=== PATIENT | female | born 1970 | race Two or more races ===

== ENCOUNTER 2016-12-07 21:35 | Emergency (ER) | payer OTHER ==
[2016-12-07 21:43] VITALS: BP 136/88
[2016-12-07] MEDS ORDERED: Ketorolac INJ* 60 MG/2 ML VIAL IM ONE (21:58)
--- NOTE | 2016-12-07 22:29 | ED ---
Dima Lemons Erika, scribed for Gurjit Arreguin MD on 12/07/16 at 2204 . Neck Pain - HPI Summary HPI Summary: Patient is a 46-year-old female presenting to the ED with a CC of constant posterior neck and upper back pain, worse on the right side. Patient reports that she did unusual bending/heavy lifting, and then developed the pain 2-3 days ago. Pain is aggravated by lifting her arm. Pain was partially alleviated by a warm bath. Pt did not take any pain medication, stating that she does not like taking any. - History of Current Complaint Chief Complaint: EDNeckComplaint Stated Complaint: NECK/SHOULDER PAIN Time Seen by Provider: 12/07/16 21:55 Hx Obtained From: Patient Hx Last Menstrual Period: May 07, 2015 Onset/Duration Of Injury/Symptoms: Days Timing: Constant Onset/Duration: Started days ago, Still Present Severity Currently: Moderate Pain Intensity: 8 Pain Scale Used: 0-10 Numeric Character: Spasmotic Aggravating Factors: Movement Alleviating Factors: Heat Associated Signs & Symptoms: Positive: Negative - Allergies/Home Medications Allergies/Adverse Reactions: Allergies Allergy/AdvReac Type Severity Reaction Status Date / Time No Known Allergies Allergy Verified 12/07/16 21:43 PMH/Surg Hx/FS Hx/Imm Hx Endocrine/Hematology History: Reports: Hx Thyroid Disease Denies: Hx Diabetes - "pre-diabetes", Hx Anemia Cardiovascular History: Reports: Hx Hypertension Denies: Hx Congestive Heart Failure Respiratory History: Reports: Hx Asthma - ON O2 AT HOME, Hx Chronic Obstructive Pulmonary Disease (COPD), Other Respiratory Problems/Disorders - HX. OF PNEUMONIA, COPD GI History: Denies: Hx Jaundice History: Denies: Hx Renal Disease - Surgical History Surgery Procedure, Year, and Place: L BREAST LUMPECTOMY 2008 B[facility]IGN. TUBAL LIGATION. C SECTION X 3. THYROID FNA BENIGN - Immunization History Date of Tetanus Vaccine: Unknown Date of Influenza Vaccine: None Infectious Disease History: No Infectious Disease History: Denies: Traveled Outside the [place] in Last 30 Days - Family History Family History: Denies FHx breast cancer - Social History Alcohol Use: None Hx Substance Use: No Substance Use Type: Reports: None Hx Tobacco Use: Yes Smoking Status (MU): Former Smoker Review of Systems Negative: Fever Positive: Myalgia - neck and upper back All Other Systems Reviewed And Are Negative: Yes Physical Exam Triage Information Reviewed: Yes Vital Signs On Initial Exam: Initial Vitals Temp Pulse Resp BP Pulse Ox 97.7 F 87 16 136/88 97 12/07/16 21:37 12/07/16 21:37 12/07/16 21:37 12/07/16 21:37 12/07/16 21:37 Vital Signs Reviewed: Yes Appearance: Positive: Well-Appearing, Pain Distress - mild discomfort Skin: Positive: Warm Head/Face: Positive: Normal Head/Face Inspection Eyes: Positive: DIANA ENT: Positive: Hearing grossly normal Neck: Positive: Supple, Tenderness @ - paracervical musculature Respiratory/Lung Sounds: Positive: Clear to Auscultation, Breath Sounds Present Cardiovascular: Positive: RRR Abdomen Description: Positive: Nontender, Soft Bowel Sounds: Positive: Present Musculoskeletal: Positive: Strength/ROM Intact Neurological: Positive: Sensory/Motor Intact Psychiatric: Positive: Affect/Mood Appropriate Diagnostics - Vital Signs Vital Signs Temp Pulse Resp BP Pulse Ox 12/07/16 21:37 97.7 F 87 16 136/88 97 - Laboratory Lab Statement: Any lab studies that have been ordered have been reviewed, and results considered in the medical decision making process. Re-Evaluation - Re-Evaluation First Eval Re-Evaluation Time: 22:30 Change: Improved Neck Course/Dx - Course Assessment/Plan: Patient is a 46 y/o F presenting to the ED with a CC of posterior neck and upper back pain. PE reveals spasms. Patient is given Toradol in the ED, and feels improved. Patient will be discharged home with a prescription for ibuprofen and follow up from her PCP. - Diagnoses Provider Diagnoses: Musculoskeletal pain Discharge - Discharge Plan Condition: Stable Disposition: HOME Prescriptions: Ibuprofen TAB* [Motrin TAB* 600 MG] 600 mg PO Q6H #30 tab Patient Education Materials: Neck Pain (ED) Referrals: [facility] [facility] REFERRAL [Outside] Additional Instructions: Please follow up with your PCP. The documentation as recorded by the Dima olivares Erika accurately reflects the service I personally performed and the decisions made by me, Gurjit Arreguin MD.
== END 2016-12-07 23:09 | disposition home or self-care (01) ==
LOC: ED 21:35
DX: M54.9 Dorsalgia, unspecified (principal); M54.2 Cervicalgia; Z87.891 Personal history of nicotine dependence; M79.1 Myalgia
CPT/HCPCS: 96372; 99282; J1885

== ENCOUNTER → 2017-04-08 20:07 | Emergency (ER) | payer SELFPAY ==
[~2017-04-08 20:07] MED LIST: Ibuprofen TAB* 600 MG PO ONE
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
[2017-04-08 22:30] VITALS: BP 163/98
== END | disposition home or self-care (01) ==
LOC: ED 20:07
DX: S40.022A Contusion of left upper arm, initial encounter (principal); M25.531 Pain in right wrist; M54.2 Cervicalgia; M54.5 Low back pain; Z87.891 Personal history of nicotine dependence; V89.2XXA Person injured in unspecified motor-vehicle accident, traffic, initial encounter; Y93.9 Activity, unspecified; Y92.9 Unspecified place or not applicable
CPT/HCPCS: 72100; 72125; 99282; A9270-GY

== ENCOUNTER 2017-04-12 13:04 | Emergency (ER) | payer SELFPAY ==
[2017-04-12 15:43] VITALS: BP 160/100
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
== END 2017-04-12 16:08 | disposition home or self-care (01) ==
LOC: UCEAST 13:04
DX: M54.12 Radiculopathy, cervical region (principal); Z87.891 Personal history of nicotine dependence
CPT/HCPCS: 99212; G0463

== ENCOUNTER 2017-05-17 13:22 | Emergency (ER) | payer OTHER ==
[2017-05-17 13:33] VITALS: BP 124/78
--- NOTE | 2017-05-17 13:36 | UC ---
Upper Extremity HPI - HPI Summary HPI Summary: 47 year old female presents right middle finger pain secondary to lifting a couch. - History of Current Complaint Chief Complaint: UCUpperExtremity Stated Complaint: FINGER INJURY Time Seen by Provider: 05/17/17 13:31 Hx Last Menstrual Period: 03/23 - Allergies/Home Medications Allergies/Adverse Reactions: Allergies Allergy/AdvReac Type Severity Reaction Status Date / Time No Known Allergies Allergy Verified 05/17/17 13:29 PMH/Surg Hx/FS Hx/Imm Hx Previously Healthy: Yes - Surgical History Surgical History: Yes Surgery Procedure, Year, and Place: L BREAST LUMPECTOMY 2007 BENIGN. TUBAL LIGATION. C SECTION X 3. THYROID FNA BENIGN - Family History Known Family History: Positive: Other Family History: Denies FHx breast cancer - Social History Alcohol Use: Rare Substance Use Type: None Smoking Status (MU): Former Smoker Have You Smoked in the Last Year: No Household Exposure Type: Cigarettes Review of Systems Constitutional: Negative Skin: Negative Eyes: Negative ENT: Negative Respiratory: Negative Cardiovascular: Negative Gastrointestinal: Negative Genitourinary: Negative Motor: Negative Neurovascular: Negative Musculoskeletal: Other: - right middle finger pain Neurological: Negative Psychological: Negative All Other Systems Reviewed And Are Negative: Yes Physical Exam Triage Information Reviewed: Yes Vital Signs: Initial Vital Signs Temp 36.7 C 05/17/17 13:29 Pulse 90 05/17/17 13:29 Resp 16 05/17/17 13:29 BP 124/78 05/17/17 13:29 Pulse Ox 98 05/17/17 13:29 Eye Exam: Normal ENT Exam: Normal Dental Exam: Normal Neck exam: Normal Neck: Positive: 1 Respiratory Exam: Normal Cardiovascular Exam: Normal Abdominal Exam: Normal Musculoskeletal: Positive: Other: - right middle finger pain Neurological Exam: Normal Psychological Exam: Normal Skin Exam: Normal Upper Extremity Course/Dx - Differential Dx/Diagnosis Provider Diagnoses: right middle finger pain Discharge - Discharge Plan Condition: Stable Disposition: HOME Prescriptions: Meloxicam [Mobic] 7.5 mg PO BID PC #30 tab Patient Education Materials: Finger Sprain (ED) Referrals: Filomena Zavaleta MD [Primary Care Provider] - If Needed
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
== END 2017-05-17 14:33 | disposition home or self-care (01) ==
LOC: UCEAST 13:22
DX: M79.644 Pain in right finger(s) (principal); Z87.891 Personal history of nicotine dependence
CPT/HCPCS: 99213; G0463

== ENCOUNTER 2017-09-29 22:58 | Emergency (ER) | payer OTHER ==
[2017-09-29] MEDS ORDERED: Ondansetron INJ* 2 MG/ML VIAL IV ONE (23:59)
[2017-09-29] MEDS ORDERED: Morphine INJ* 4 MG/ML 1 ML CARPUJECT IV ONE (23:59)
[2017-09-30 00:40] LABS: ABS Basophils 0.1 10^3/ul (0-0.2); ABS Eosinophils 0.2 10^3/ul (0-0.6); ABS Monocytes 0.6 10^3/ul (0-0.8); ABS Nucleated RBC 0 10^3/ul; Eosinophil % 1.4 % (0-6); Hematocrit 41 % (35-47); Hemoglobin 14.5 g/dl (12.0-16.0); Lymphocyte % 16.7 % (25-47); Mean Corpuscular HGB Conc 35 g/dl (31-36); Mean Corpuscular Hemoglobin 30 pg (27-31); Mean Corpuscular Volume 85 fL (80-97); Mean Platelet Volume 8 um3 (7.4-10.4); Nucleated Red Blood Cells % 0; Platelet Count 284 10^3/ul (150-450); Red Blood Count 4.86 10^6/ul (4.0-5.4); Red Cell Distribution Width 14 % (10.5-15); White Blood Count 11.9 10^3/ul (3.5-10.8)
[2017-09-30 00:55] LABS: EGFR Non-African American 135.4 (>60)
[2017-09-30 01:34] VITALS: BP 131/84
--- NOTE | 2017-09-30 01:43 | ED ---
Headache - HPI Summary HPI Summary: Pt presents w/ acute facial pain after crying tonight. Reports pain is in her entire jaw, cheeks and around her eyes. Has a LANGE and can't take the pain. Was supposed to travel to see her mom with cancer in [facility], [facility] and at the last minute, her daughter who was supposed to take her cancelled the trip. Pt admits she was very angry and upset. She also hit herself in the nose by accident and nose started bleeding - stopped with pressure and has not returned. Her blood pressure is elevated as well - she accidentally took 2 of her metoprolol instead of 1 metoprolol and 1 losartan - she had been doing this for a couple of days and just returned to routine regimen today. BP is elevated now. Denies chest pain, SOB, dizziness, arm pain or weakness. She is crying with a blanket over her head and quite upset. Denies recent illness, rhinorrhea, sneezing, coughing, ST, fever, chills, N/V/D. - History Of Current Complaint Chief Complaint: EDGeneral Stated Complaint: FACIAL PAIN Time Seen by Provider: 09/29/17 23:11 Hx Obtained From: Patient, Family/[employer] - son is w/ her Hx Last Menstrual Period: 03/23 - Allergies/Home Medications Allergies/Adverse Reactions: Allergies Allergy/AdvReac Type Severity Reaction Status Date / Time No Known Allergies Allergy Verified 07/03/17 10:39 PMH/Surg Hx/FS Hx/Imm Hx Previously Healthy: Yes Endocrine/Hematology History: Reports: Hx Diabetes - "pre-diabetes", Hx Thyroid Disease - issues years ago - has not needed meds in years Denies: Hx Anemia Cardiovascular History: Reports: Hx Hypertension - metoprolol and losartan Denies: Hx Congestive Heart Failure, Hx Pacemaker/ICD Respiratory History: Reports: Hx Asthma - ON O2 AT HOME, Hx Chronic Obstructive Pulmonary Disease (COPD), Other Respiratory Problems/Disorders - HX. OF PNEUMONIA, COPD GI History: Denies: Hx Jaundice History: Denies: Hx Renal Disease Sensory History: Denies: Hx Hearing Aid Psychiatric History: Denies: Hx Anxiety - pt denies, Hx Panic Disorder - Surgical History Surgery Procedure, Year, and Place: L BREAST LUMPECTOMY 2008 BENIGN. TUBAL LIGATION. C SECTION X 3. THYROID FNA BENIGN - Immunization History Date of Tetanus Vaccine: Unknown Date of Influenza Vaccine: None Infectious Disease History: No Infectious Disease History: Denies: History Other Infectious Disease, Traveled Outside the [place] in Last 30 Days - Family History Known Family History: Positive: Other Family History: mom w/ lung ca - Social History Lives: With Family Alcohol Use: Rare Hx Substance Use: No Substance Use Type: Reports: None Hx Tobacco Use: Yes Smoking Status (MU): Former Smoker Have You Smoked in the Last Year: No Review of Systems Constitutional: Negative Negative: Fever, Chills, Fatigue Eyes: Negative Negative: Photophobia, Blurred Vision, Diplopia, Drainage, Erythema ENT: Negative Positive: Epistaxis - ealier but not now, Other - facial pain. Negative: Dental Pain, Sore Throat, Ear Ache, Nasal Discharge Cardiovascular: Negative Negative: Palpitations, Chest Pain Respiratory: Negative Negative: Shortness Of Breath, Cough Gastrointestinal: Negative Negative: Abdominal Pain, Vomiting, Diarrhea, Nausea Positive: no symptoms reported Musculoskeletal: Other - ongoing Lt hip/leg pain - working w/ PT Skin: Negative Positive: Headache. Negative: Weakness, Paresthesia, Numbness, Syncope, Slurred Speech Positive: Anxious All Other Systems Reviewed And Are Negative: Yes Physical Exam Triage Information Reviewed: Yes Vital Signs On Initial Exam: Initial Vitals Temp Pulse Resp BP Pulse Ox 96.8 F 81 16 166/97 96 09/29/17 23:02 09/29/17 23:02 09/29/17 23:02 09/29/17 23:02 09/29/17 23:02 Vital Signs Reviewed: Yes Appearance: Positive: Pain Distress - pt is crying, reporting facial pain and headache, Obese Skin: Positive: Warm, Dry - no skin changes over face Head/Face: Positive: Normal Head/Face Inspection - Sinuses NTTP, no edema Eyes: Positive: Normal, EOMI, DIANA, Conjunctiva Clear - crying ENT: Positive: Normal ENT inspection, Hearing grossly normal, Pharynx normal, TMs normal, Uvula midline. Negative: Nasal congestion, Nasal drainage, Tonsillar swelling, Tonsillar exudate, Trismus, Muffled voice, Hoarse voice, Sinus tenderness Dental: Negative: Abscess @ Neck: Positive: Supple, Nontender, No Lymphadenopathy Respiratory/Lung Sounds: Positive: Clear to Auscultation, Breath Sounds Present. Negative: Rales, Rhonchi, Wheezes Cardiovascular: Positive: Normal, RRR, S1, S2 Abdomen Description: Positive: Nontender, No Organomegaly, Soft Bowel Sounds: Positive: Present Musculoskeletal: Positive: Normal, Strength/ROM Intact Neurological: Positive: Normal, Sensory/Motor Intact, Alert, Oriented to Person Place, Time, CN Intact II-III Psychiatric: Positive: Anxious - upset, crying, anxious - Pawel Coma Scale Coma Scale Total: 15 Diagnostics - Vital Signs Vital Signs Temp Pulse Resp BP Pulse Ox 09/30/17 01:00 84 153/101 97 09/30/17 00:30 79 131/92 95 09/30/17 00:25 84 98 09/30/17 00:15 16 09/30/17 00:01 83 151/96 96 09/30/17 00:00 77 97 09/29/17 23:52 76 165/99 94 09/29/17 23:35 82 169/105 97 09/29/17 23:30 85 161/102 97 09/29/17 23:09 81 93 09/29/17 23:07 157/98 09/29/17 23:02 96.8 F 81 16 166/97 96 - Laboratory Lab Results: Lab Results 09/30/17 09/30/17 09/30/17 Range/Units 00:17 00:17 00:17 WBC 11.9 H (3.5-10.8) 10^3/ul RBC 4.86 (4.0-5.4) 10^6/ul Hgb 14.5 (12.0-16.0) g/dl Hct 41 (35-47) % MCV 85 (80-97) fL MCH 30 (27-31) pg MCHC 35 (31-36) g/dl RDW 14 (10.5-15) % Plt Count 284 (150-450) 10^3/ul MPV 8 (7.4-10.4) um3 Neut % (Auto) 75.9 (38-83) % Lymph % (Auto) 16.7 L (25-47) % [place] % (Auto) 5.2 (1-9) % Eos % (Auto) 1.4 (0-6) % Baso % (Auto) 0.8 (0-2) % Absolute Neuts (auto) 9.0 H (1.5-7.7) 10^3/ul Absolute Lymphs (auto) 2.0 (1.0-4.8) 10^3/ul Absolute Monos (auto) 0.6 (0-0.8) 10^3/ul Absolute Eos (auto) 0.2 (0-0.6) 10^3/ul Absolute Basos (auto) 0.1 (0-0.2) 10^3/ul Absolute Nucleated RBC 0 10^3/ul Nucleated RBC % 0 Sodium 135 (133-145) mmol/L Potassium 3.3 L (3.5-5.0) mmol/L Chloride 100 L (101-111) mmol/L Carbon Dioxide 28 (22-32) mmol/L Anion Gap 7 (2-11) mmol/L BUN 14 (6-24) mg/dL Creatinine 0.49 L (0.51-0.95) mg/dL Est GFR ( Amer) 174.1 (>60) Est GFR (Non-Af Amer) 135.4 (>60) BUN/Creatinine Ratio 28.6 H (8-20) Glucose 131 H (70-100) mg/dL Lactic Acid 1.5 (0.5-2.0) mmol/L Calcium 9.7 (8.6-10.3) mg/dL Magnesium 2.0 (1.9-2.7) mg/dL Total Bilirubin 0.70 (0.2-1.0) mg/dL AST 15 (13-39) U/L ALT 12 (7-52) U/L Alkaline Phosphatase 54 (34-104) U/L Troponin I Pending C-Reactive Protein 5.68 H (< 5.00) mg/L Total Protein 7.2 (6.4-8.9) g/dL Albumin 4.2 (3.2-5.2) g/dL Globulin 3.0 (2-4) g/dL Albumin/Globulin Ratio 1.4 (1-3) TSH 0.27 L (0.34-5.60) mcIU/mL Result Diagrams: 09/30/17 00:17 09/30/17 00:17 Lab Statement: Any lab studies that have been ordered have been reviewed, and results considered in the medical decision making process. Re-Evaluation - Re-Evaluation First Eval Change: Improved - pt reports pain resolved and she is more relaxed/calm after IV morphine Headache Course/Dx - Course Course Of Treatment: Pt presents w/ facial pain after being angry, anxious and crying- reports she accidentally hit herself in the face and develop nose bleed which stopped easily. Since her BP was elevated, an ECG and end organ labs were assessed - all normal. She had resolution of sx after morphine and was advised to address anxiety with PCP. Also encouraged to continue anti-hypertensives as directed. F/u w/ PCP to follow - if danger s/sx present, return to ED. NOTE: pt's TSH was low however heart rate is WNL. FT4 added however pt opted to go home prior to return of labs. These will be sent to PCP - no change in tx tonight however hyperthyroid status could contribute to pt's anxiety. - Diagnoses Provider Diagnoses: Anxiety Discharge - Discharge Plan Condition: Stable Disposition: HOME Patient Education Materials: Hypertension (ED), Anxiety (ED) Referrals: Filomena Zavaleta MD [Primary Care Provider] - Additional Instructions: Try relaxation techniques such as deep breathing, guided imagery, listening to calming music, stretching, rest and hydratioN Avoid stimulants such as caffeine, alcohol, etc Follow-up with PCP if blood pressure continues to be elevated despite trying relaxtion along with taking blood pressure medications as directed *If you develop severe headache, visual change, neck pain/stiffness, fever, chills, chest pain, abdominal pain, vomiting, numbness, tingling, weakness, return to ED
== END 2017-09-30 01:35 | disposition home or self-care (01) ==
LOC: ED 22:58
DX: F41.9 Anxiety disorder, unspecified (principal); R73.03 Prediabetes; J45.909 Unspecified asthma, uncomplicated; Z99.81 Dependence on supplemental oxygen; J44.9 Chronic obstructive pulmonary disease, unspecified; Z87.891 Personal history of nicotine dependence
CPT/HCPCS: 36415; 80053; 83605; 83735; 84439; 84443; 84484; 85025; 86140; 93005; 96374; 96375; 99283; J2270; J2405

== ENCOUNTER 2018-08-14 12:57 | Emergency (ER) | payer OTHER ==
[2018-08-14 13:22] VITALS: BP 141/87
--- NOTE | 2018-08-14 14:31 | UC ---
Throat Pain/Nasal Alli HPI - HPI Summary HPI Summary: 48-year-old woman comes in with a chief complaint of runny nose sinus pressure or sore throat cough chest congestion for 3-4 days. She been using her albuterol inhaler at home and Robitussin that does help some. Tells me every 1 is in the house is sick. Rhinorrhea is green. - History of Current Complaint Chief Complaint: UCGeneralIllness Stated Complaint: SORE THROAT, COUGH, AND CHEST CONGESTION Time Seen by Provider: 08/14/18 14:13 Hx Last Menstrual Period: 08/03/18 Pain Intensity: 10 - Allergies/Home Medications Allergies/Adverse Reactions: Allergies Allergy/AdvReac Type Severity Reaction Status Date / Time No Known Allergies Allergy Verified 07/03/17 10:39 Home Medications: Home Medications Albuterol HFA INHALER* [Ventolin HFA Inhaler*] 1 puff INH Q4H PRN 08/14/18 [ History Confirmed 08/14/18] PMH/Surg Hx/FS Hx/Imm Hx Cardiovascular History: Hypertension Respiratory History: COPD - Surgical History Surgical History: Yes Surgery Procedure, Year, and Place: L BREAST LUMPECTOMY 2007 BENIGN. TUBAL LIGATION. C SECTION X 3. THYROID FNA BENIGN - Family History Known Family History: Positive: Other Family History: mom w/ lung ca - Social History Alcohol Use: None Substance Use Type: None Smoking Status (MU): Former Smoker Have You Smoked in the Last Year: No Household Exposure Type: Cigarettes Review of Systems All Other Systems Reviewed And Are Negative: Yes Constitutional: Positive: Negative Skin: Positive: Negative Eyes: Positive: Negative ENT: Positive: Sore Throat, Ear Ache, Nasal Discharge, Sinus Congestion, Sinus Pain/Tenderness Respiratory: Positive: Shortness Of Breath, Cough Cardiovascular: Positive: Negative Gastrointestinal: Positive: Negative Motor: Positive: Negative Neurovascular: Positive: Negative Musculoskeletal: Positive: Negative Neurological: Positive: Negative Psychological: Positive: Negative Is Patient Immunocompromised?: No Physical Exam Triage Information Reviewed: Yes Appearance: No Pain Distress, Well-Nourished, Ill-Appearing - MILD Vital Signs: Initial Vital Signs Temp 98.0 F 08/14/18 13:18 Pulse 77 08/14/18 13:18 Resp 18 08/14/18 13:18 BP 141/87 08/14/18 13:18 Pulse Ox 99 08/14/18 13:18 Vital Signs Reviewed: Yes Eye Exam: Normal Eyes: Positive: Conjunctiva Clear ENT: Positive: Pharyngeal erythema, Nasal congestion, Nasal drainage, TMs normal Neck exam: Normal Neck: Positive: Supple Respiratory: Positive: Lungs clear, Normal breath sounds, No respiratory distress Cardiovascular: Positive: RRR Musculoskeletal Exam: Normal Musculoskeletal: Positive: ROM Intact Neurological Exam: Normal Neurological: Positive: Alert, Muscle Tone Normal Psychological Exam: Normal Psychological: Positive: Age Appropriate Behavior Skin Exam: Normal Throat Pain/Nasal Course/Dx - Course Course Of Treatment: DISCUSSED VIRAL VERSES BACTERIAL INFECTION AND THE ROLE OF ANTIBIOTICS. THE PATIENT WISHES TO BE ON ANTIBIOTICS AT THIS TIME. - Differential Dx/Diagnosis Provider Diagnoses: PHARYNGITIS Discharge - Sign-Out/Discharge Documenting (check all that apply): Patient Departure All imaging exams completed and their final reports reviewed: No Studies - Discharge Plan Condition: Stable Disposition: HOME Prescriptions: Amoxicillin/Clavulanate TAB* [Augmentin TAB 875*] 875 mg PO BID #20 tab Patient Education Materials: Pharyngitis (ED) Referrals: Mary Grace Palomares MD [Primary Care Provider] - Additional Instructions: FOLLOW UP WITH YOUR DOCTOR IF NOT COMPLETELY IMPROVED. GET RECHECKED FOR ANY WORSENING OF YOUR CONDITION OR QUESTIONS OR CONCERNS. - Billing Disposition and Condition Condition: STABLE Disposition: Home
== END 2018-08-14 14:42 | disposition home or self-care (01) ==
LOC: UCEAST 12:57
DX: J02.9 Acute pharyngitis, unspecified (principal); R09.89 Other specified symptoms and signs involving the circulatory and respiratory systems; R05 Cough; R09.81 Nasal congestion; I10 Essential (primary) hypertension; J44.9 Chronic obstructive pulmonary disease, unspecified; Z87.891 Personal history of nicotine dependence
CPT/HCPCS: 87651; 99212; G0463

== ENCOUNTER → 2018-09-18 18:24 | Emergency (ER) | payer OTHER ==
--- NOTE | 2018-09-18 19:35 | ED ---
Lower Extremity - HPI Summary HPI Summary: Patient complains of acute on chronic right knee pain after fall today. Patient states she had mechanical fall and fell onto right knee. Denies any other pain, injury, symptoms. Patient has not ambulated since fall. - History of Current Complaint Chief Complaint: EDExtremityLower Stated Complaint: RT KNEE PAIN Time Seen by Provider: 09/18/18 18:45 Hx Obtained From: Patient Hx Last Menstrual Period: 08/03/18 Mechanism Of Injury: Fall From A Standing Position Onset of Pain: Immediate Onset/Duration: Hours Severity Initially: Moderate Severity Currently: Moderate Pain Intensity: 8 Pain Scale Used: 0-10 Numeric Timing: Constant Location: Is Discrete @ Character Of Pain: Dull, Aching, Throbbing Associated Signs And Symptoms: Positive: Swelling, Knee Pain Aggravating Factor(s): Standing, Ambulation, Movement, Weight Bearing Alleviating Factor(s): Rest, Elevation Able to Bear Weight: No - Allergies/Home Medications Allergies/Adverse Reactions: Allergies Allergy/AdvReac Type Severity Reaction Status Date / Time No Known Allergies Allergy Verified 09/18/18 18:51 PMH/Surg Hx/FS Hx/Imm Hx Endocrine/Hematology History: Reports: Hx Diabetes - "pre-diabetes", Hx Thyroid Disease - issues years ago - has not needed meds in years Denies: Hx Anemia Cardiovascular History: Reports: Hx Hypertension - metoprolol and losartan Denies: Hx Congestive Heart Failure, Hx Pacemaker/ICD Respiratory History: Reports: Hx Asthma - ON O2 AT HOME, Hx Chronic Obstructive Pulmonary Disease (COPD), Other Respiratory Problems/Disorders - HX. OF PNEUMONIA, COPD GI History: Denies: Hx Jaundice, Hx Ulcer History: Denies: Hx Renal Disease Sensory History: Denies: Hx Hearing Aid Psychiatric History: Denies: Hx Anxiety - pt denies, Hx Panic Disorder - Surgical History Surgery Procedure, Year, and Place: L BREAST LUMPECTOMY 2008 BENIGN. TUBAL LIGATION. C SECTION X 3. THYROID FNA BENIGN - Immunization History Date of Tetanus Vaccine: Unknown Date of Influenza Vaccine: None Infectious Disease History: No Infectious Disease History: Denies: Hx Hepatitis, Hx Human Immunodeficiency Virus (HIV), History Other Infectious Disease, Traveled Outside the [place] in Last 30 Days - Family History Known Family History: Positive: Other Family History: mom w/ lung ca - Social History Alcohol Use: None Hx Substance Use: No Substance Use Type: Reports: None Hx Tobacco Use: Yes Smoking Status (MU): Former Smoker Have You Smoked in the Last Year: No Review of Systems Constitutional: Negative Eyes: Negative ENT: Negative Cardiovascular: Negative Respiratory: Negative Gastrointestinal: Negative Genitourinary: Negative Musculoskeletal: Other Skin: Negative Neurological: Negative Psychological: Normal All Other Systems Reviewed And Are Negative: Yes Physical Exam - Summary Physical Exam Summary: Swelling to lateral right knee. Full range of motion with pain. PMS intact distally. No erythema, ecchymosis, deformity, extra warmth to right knee joint. Triage Information Reviewed: Yes Vital Signs On Initial Exam: Initial Vitals Temp Pulse Resp BP Pulse Ox 98.0 F 84 18 131/75 97 09/18/18 18:34 09/18/18 18:34 09/18/18 18:34 09/18/18 18:34 09/18/18 18:34 Vital Signs Reviewed: Yes Appearance: Positive: Well-Appearing Skin: Positive: Warm Head/Face: Positive: Normal Head/Face Inspection Eyes: Positive: Normal Neck: Positive: Supple Respiratory/Lung Sounds: Positive: Clear to Auscultation Cardiovascular: Positive: Normal Abdomen Description: Positive: Nontender Musculoskeletal: Positive: Normal Neurological: Positive: Normal Psychiatric: Positive: Normal AVPU Assessment: Alert - Pawel Coma Scale Best Eye Response: 4 - Spontaneous Best Motor Response: 6 - Obeys Commands Best Verbal Response: 5 - Oriented Coma Scale Total: 15 Diagnostics - Vital Signs Vital Signs Temp Pulse Resp BP Pulse Ox 09/18/18 18:34 98.0 F 84 18 131/75 97 - Laboratory Lab Statement: Any lab studies that have been ordered have been reviewed, and results considered in the medical decision making process. Lower Extremity Course/Dx - Course Course Of Treatment: Patient complains of acute on chronic right knee pain after fall today. Patient states she had mechanical fall and fell onto right knee. Denies any other pain, injury, symptoms. Patient has not ambulated since fall. Physical exam:Swelling to lateral right knee. Full range of motion with pain. PMS intact distally. No erythema, ecchymosis, deformity, extra warmth to right knee joint. X-ray positive for possible patellar subluxation. Patella manipulated medially with right leg in a hyperextended position. Patient placed in knee immobilizer, crutches. Follow-up with orthopedics. - Diagnoses Provider Diagnoses: Fall, Patellar subluxation Discharge - Sign-Out/Discharge Documenting (check all that apply): Patient Departure - Discharge Plan Condition: Stable Disposition: HOME Patient Education Materials: Knee Pain (ED) Referrals: Filomena Zavaleta MD [Primary Care Provider] - Greyson Frazier MD [Medical Doctor] - Additional Instructions: Ibuprofen, ice, rest, elevation for pain and swelling. Follow-up with orthopedics Dr. Frazier. Return to the ED for any new or worsening symptoms. - Billing Disposition and Condition Condition: STABLE Disposition: Home
[2018-09-18 20:09] VITALS: BP 123/60
== END | disposition home or self-care (01) ==
LOC: ED 18:24
DX: S83.001A Unspecified subluxation of right patella, initial encounter (principal); M25.561 Pain in right knee; W19.XXXA Unspecified fall, initial encounter; Y92.9 Unspecified place or not applicable; Z87.891 Personal history of nicotine dependence
CPT/HCPCS: 99282; A9270-GY

== ENCOUNTER 2018-10-10 21:23 | Emergency (ER) | payer OTHER ==
--- OUTSIDE RECORDS SUMMARY | 2018-10-10 21:29 | XMS REPORT | Continuity of Care Document ---
:1970 External Reference #:[id number] Author Name LynseyDewey Care Team Providers Name Role Phone Filomena Zavaleta MD Primary Care Physician Unavailable Payers Type Date Identification Numbers Payment Provider Subscriber Policy Number: [id number] [place] Mariluz Chen Group Number: [id number] [address] PayID: [id number] [place] [address] Effective: 2016 Policy Number: [id number] [place] Mariluz Chen Onset: 2016 Group Name: [id number] PayID: [id number] [place] [address] Expires: 2016 Policy Number: [place] Mariluz Chen [id number] PayID: [id number] [address] [address] [place] [address] Onset: 2017 Policy Number: [id number] [place] Mariluz Chen PayID: [id number] [facility] [address] [place] [address] Policy Number: [id number] [employer] Mariluzchristo Chen PayID: [id number] Advance Directives Description No Information Available Problems Date Description Provider Status Onset: 07/11/2011 Electrocardiogram abnormal Maria Esther Main M.D. Active Onset: 07/11/2011 Hyperlipidemia Maria Esther Main M.D. Active Note: high TG Onset: 01/05/2014 Irritable bowel syndrome Rina Zhu, N.P. Active Onset: 01/05/2014 Apnea Rina Zhu N.P. Active Onset: 01/05/2014 Gastroesophageal reflux disease Rina Zhu N.P. Active Onset: 01/05/2014 Anxiety state Rina Zhu N.P. Active Onset: 01/05/2014 Chronic obstructive lung disease Rina Zhu N.P. Active Onset: 02/03/2014 Impaired fasting glucose Rina Zhu N.P. Active Onset: 04/13/2014 Obesity Rina Zhu N.P. Active Onset: 04/23/2014 Uterine leiomyoma Rina hZu N.P. Active Note: 06/02/13- fibroids 1-3.5 cm in size Onset: 06/09/2015 Subclinical hyperthyroidism Filomena Zavaleta M.D. Active Onset: Thyroid nodule Active Note: benign by FNA Onset: 11/10/2015 Disturbance in sleep behavior Erinn Walker MD Active Onset: 12/13/2015 Hypertensive retinopathy Filomena Zavaleta M.D. Active Onset: 12/20/2015 Tubular adenoma of colon Filomena Zavaleta M.D. Active Note: repeat in 2020 Onset: 12/21/2015 Patellofemoral osteoarthritis Filomena Zavaleta M.D. Active Onset: 01/03/2016 Obstructive sleep apnea syndrome Erinn Walker MD Active Onset: 02/20/2016 Localized, primary osteoarthritis Pauline Wolf M.D. Active Onset: 08/10/2016 Internal hemorrhoids Filomena Zavaleta M.D. Active Onset: 09/12/2016 Obstructive sleep apnea of adult Filomena Zavaleta M.D. Active Note: mild Onset: 01/05/2014 Non-toxic nodular goiter Rina Zhu N.Sugey. Inactive Inactive: 06/10/2014 Onset: 07/11/2011 Chest pain Maria Esther Main M.D. Inactive Inactive: 06/10/2014 Onset: 07/11/2011 Dyspnea Maria Esther Main M.D. Inactive Inactive: 06/10/2014 Onset: 07/11/2011 Benign essential hypertension Maria Esther Main M.D. 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 Started age [age] Recreational Drug Use Denies Drug Use Exercise Type/Frequency Does not exercise Allergies, Adverse Reactions, Alerts Date Description Reaction Status Severity Comments 08/26/2017 Amoxicillin Anaphylaxis Active roberto 07/11/2011 NKDA Inactive 01/24/2017 NKDA Inactive Medications Medication Date Status Form Strength Qnty SIG Indications Ordering Provider Ventolin HFA 11/25 Active Aerosol 108(90Bas 1mont 2 puffs by Heriberto Martinez /2014 william) h mouth four Pastora, mcg/Act times a M.D. day as needed Ibuprofen 00 Active Capsules 200mg as needed Unknown /0000 Losartan 00 Active Tablets 100-25mg 90tab Take 1 Filomena Potassium/Hydroc s Tablet By Waqar hlorothiazide Mouth M.D. Every Day Metoprolol Active Tablets ER 25mg 90tab Take 1 Filomena Succinate ER /0000 24HR s Tablet By Zavaleta, Mouth M.D. Every Day Meloxicam 08/26 Hx Tablets 7.5mg 60tab Take 1 M25.552 Filomena /2016 s Tablet By Waqar, - Mouth M.D. 12/03 Twice A Day as Needed For Pain, Avoid Other NSAIDS (Ibuprofen , Aleve, Etc) Diclofenac 07/15 Hx Gel 1% 100gm apply 4 S63.652D Mimi Sodium /2016 times Boyd, - daily as M.D. 12/04 needed for pain Azithromycin 02/15 Hx Tablets 250mg 6tabs 2 tab J20.9 Terry /2017 today and Carmen, - then 1tab M.D. 02/19 daily Diclofenac 01/[address] 75mg 60tab take 1 tab M25.511 Zaneb Sodium s by mouth MD Jeyson - twice a 03/13 day with food Cyclobenzaprine 01/22 Hx Tablets 5mg 10tab take one M25.511 Filomena HCL /2016 s tablet by Waqar, - mouth at M.D. 03/13 night /2016 Metronidazole 09/14 Hx Gel 0.75% 1unit apply s intravagin Waqar, - ally once M.D. 01/15 a day x days Fluconazole 09/12 Hx Tablets 150mg 2tabs 1 by mouth B37.3 every day Waqar, - M.D. 01/15 Ergocalciferol 09/12 Hx Capsules [id number] 8caps 1 tab by E55.9 mouth Waqar, - every week M.D. 01/15 Ergocalciferol 07/12 Hx Capsules [id number] 8caps 1 tab by E55.9 Filomena /2016 mouth Waqar, - every week M.D. 09/12 Citalopram 06/20 Hx Tablets 10mg 30tab Take 1 F32.8 Filomena Hydrobromide s Tablet By Waqar, - Mouth M.D. 01/15 Every Day /2016 Naproxen 02/19 Hx Tablets 500mg 60tab 1 tablet M17.12 Pauline s with food Luciano, - by mouth M.D. 07/12 twice a day Zithromax Z-Yared 01/02 Hx Tablets 250mg 6tabs 2 tabs J02.9 Erinn day#1, 1 MD Denise - tab daily 02/14 for 4 days /2015 Ergocalciferol 06/09 Hx Capsules [id number] 8caps 1 tab by E55.9 Filomena /2015 mouth Waqar, - every week M.D. 11/09 Amoxicillin/Clav 08/19 Hx Tablets 875-125mg 14tab 1 tab 461.8 Rina ulanate s twice a Audra, Potassium - day x 7 N.P. Fluticasone 08/19 Hx Suspension 50mcg/Act 1bott 2 spray in 461.8 Rina Propionate le each Uadra, - nostril in N.P. 03/09 /2014 Culturelle 01/05 Hx Capsules 30cap 1 cap by 564.1 Rina [facility] s mouth by Audra, - mouth N.P. 08 every /2013 Metamucil 01/05 Hx Capsules 0.52gm 60cap 1 cap by 564.1 Rina /2013 s mouth Audra, - twice a N.P. 03/09 day water Debrox 01/05 Hx Solution 6.5% 1Bott 5 drops in 380.4 Rina /2013 le l ear Audra, - twice a N.P. days, then 5 drops in each ear 1 time a month Diovan HCT Hx Tablets 320-25mg 90tab 1 po qd Unknown /0000 s - 08/19 Ventolin HFA Hx Aerosol 108(90Bas 1mont 2 puffs po Unknown /0000 e) mcg/ac h qid prn - 11/25 Albuterol Hx Aerosol 90mcg/Act 1unit 2 puffs po Unknown /0000 s qid prn - 06/25 Methimazole Hx Tablets 5mg once a day Unknown /0000 - 07/26 Vitamin D 00 Hx Tablets 2000Unit 1 by mouth E55.9 Unknown /0000 every day - 01/15 Vitamin D3 Adult Hx Chewtabs 1000Unit 2 tab E55.9 Unknown Gummies /0000 daily - 06/04 Potassium Hx Crystals 1 daily Unknown Chloride /0000 - 03/13 Cyclobenzaprine Hx Tablets 10mg not taking Unknown HCL /0000 - 06/04 Ginkgo Biloba Hx Capsules 30mg 1 by mouth Unknown /0000 once a day - 12/04 Medications Administered in Office Medication Date Status Form Strength Qnty SIG Indications Ordering Provider Inj, 04/23/ Administered Injection Denis Stephens Regadenoson, 0.1 2016 DO Marcus MG FACC Technetium TC 04/23/ Administered Injection Denis Stephens 99M Tetrofosmin, 2016 DO Marcus Per Unit Dose Up FACC To 40 Millicuries Triamcinolone 03/26/ Administered Injection [place] (Kenalog) 2016 [place] Triamcinolone 02/28/ Administered Injection Zaneb (Kenalog) 2016 MD Jeyson Immunizations CPT Code Status Date Vaccine Lot # [id number] Given 08/26/2017 Influenza Virus Vaccine, Quadrivalent, Split, [id number] Preservative Free 61969 Given 07/12/2016 Influenza Virus Vaccine, Quadrivalent, Split [id number] Virus, [place] Use [address] Given 06/28/2015 Influenza Virus Vaccine, Quadrivalent, Split, Preservative Free 23646 Given 02/04/2015 Tetanus And Diptheria (Td) For Adult Use Preservative Free 24156 Given 11/01/2014 Flu Vaccine Split Virus Preservative Free For Indiv [id number] Older 57328 Given 02/26/2014 Pneumonia Vaccine [id number] Vital Signs Date Vital Result Comment 09/26/2018 1:07pm Height 63 inches 5'3" Weight 228.00 lb Heart Rate 96 /min BP Systolic 138 mmHg BP Diastolic 84 mmHg Body Temperature 98.8 F Pain Level 8 BMI (Body Mass Index) 40.4 kg/m2 01/14/2018 11:47am Weight 219.00 lb Heart Rate 75 /min BP Systolic Sitting 138 mmHg BP Diastolic Sitting 94 mmHg O2 % BldC Oximetry 93 % 12/04/2017 11:53am Weight 219.00 lb Heart Rate 88 /min BP Systolic Sitting 140 mmHg BP Diastolic Sitting 90 mmHg O2 % BldC Oximetry 96 % 08/26/2017 9:56am Weight 139.00 lb BP Systolic Sitting 120 mmHg BP Diastolic Sitting 78 mmHg Body Temperature 98.6 F 08/26/2017 7:44am Weight 226.00 lb Heart Rate 74 /min BP Systolic Sitting 130 mmHg BP Diastolic Sitting 88 mmHg Body Temperature 97.1 F O2 % BldC Oximetry 96 % 07/15/2017 11:29am Height 62.5 inches 5'2.50" Weight 226.00 lb Heart Rate 100 /min Respiratory Rate 20 /min Body Temperature 98.2 F Pain Level 7 BMI (Body Mass Index) 40.7 kg/m2 06/27/2017 1:20pm Height 62.5 inches 5'2.50" Weight 226.00 lb Heart Rate 72 /min BP Systolic Sitting 155 mmHg BP Diastolic Sitting 95 mmHg Body Temperature 98.7 F BMI (Body Mass Index) 40.7 kg/m2 06/04/2017 2:06pm Weight 222.00 lb Heart Rate 79 /min BP Systolic Sitting 138 mmHg BP Diastolic Sitting 90 mmHg Body Temperature 97.8 F O2 % BldC Oximetry 98 % 05/09/2017 10:45am Weight 219.50 lb Heart Rate 92 /min BP Systolic 130 mmHg BP Diastolic 80 mmHg Body Temperature 98.2 F O2 % BldC Oximetry 97 % 04/24/2017 12:59pm Weight 220.25 lb Heart Rate 80 /min BP Systolic 136 mmHg BP Diastolic 82 mmHg Body Temperature 98.2 F O2 % BldC Oximetry 96 % 03/28/2017 11:00am Height 63 inches 5'3" Weight 222.00 lb Heart Rate 78 /min BP Systolic 155 mmHg BP Diastolic 92 mmHg Body Temperature 98.2 F Pain Level 6 BMI (Body Mass Index) 39.3 kg/m2 03/26/2017 10:05am Height 63 inches 5'3" Weight 222.00 lb BP Systolic 118 mmHg BP Diastolic 80 mmHg Body Temperature 98.9 F Pain Level 0 BMI (Body Mass Index) 39.3 kg/m2 03/21/2017 11:49am Weight 222.00 lb Heart Rate 96 /min BP Systolic 118 mmHg BP Diastolic 78 mmHg Body Temperature 98.0 F O2 % BldC Oximetry 97 % 03/13/2017 11:45am Weight 217.50 lb Heart Rate 104 /min BP Systolic 124 mmHg BP Diastolic 86 mmHg Body Temperature 97.7 F O2 % BldC Oximetry 93 % 02/28/2017 8:27am Weight 218.00 lb BP Systolic 119 mmHg BP Diastolic 84 mmHg Body Temperature 97.9 F Pain Level 3 02/15/2017 2:28pm Weight 224.50 lb Heart Rate 99 /min BP Systolic Sitting 136 mmHg BP Diastolic Sitting 86 mmHg Body Temperature 98.2 F O2 % BldC Oximetry 97 % 01/31/2017 10:59am Height 63 inches 5'3" Weight 220.00 lb Heart Rate 82 /min BP Systolic 118 mmHg BP Diastolic 82 mmHg Body Temperature 98.1 F Pain Level 7 BMI (Body Mass Index) 39.0 kg/m2 01/24/2017 1:31pm Height 63 inches 5'3" Weight 220.00 lb Heart Rate 79 /min BP Systolic 115 mmHg BP Diastolic 78 mmHg Body Temperature 97.3 F BMI (Body Mass Index) 39.0 kg/m2 01/22/2017 10:05am Weight 221.00 lb Heart Rate 70 /min BP Systolic 122 mmHg BP Diastolic 70 mmHg Body Temperature 98.0 F O2 % BldC Oximetry 97 % 01/15/2017 11:45am Weight 221.00 lb Heart Rate 92 /min BP Systolic Sitting 116 mmHg BP Diastolic Sitting 78 mmHg Body Temperature 97.8 F Pain Level 8 R shoulder O2 % BldC Oximetry 96 % 09/12/2016 1:09pm Height 62.75 inches 5'2.75" Weight 227.00 lb Heart Rate 95 /min BP Systolic Sitting 128 mmHg BP Diastolic Sitting 96 mmHg Body Temperature 97.9 F O2 % BldC Oximetry 97 % BMI (Body Mass Index) 40.5 kg/m2 07/12/2016 10:31am Heart Rate 84 /min BP Systolic Sitting 118 mmHg BP Diastolic Sitting 76 mmHg Body Temperature 98.2 F O2 % BldC Oximetry 98 % 06/20/2016 10:02am Weight 227.00 lb Heart Rate 99 /min BP Systolic Sitting 116 mmHg BP Diastolic Sitting 80 mmHg Body Temperature 98.1 F O2 % BldC Oximetry 97 % 02/20/2016 10:44am Height 63 inches 5'3" Weight 234.00 lb Respiratory Rate 16 /min Pain Level 7 BMI (Body Mass Index) 41.4 kg/m2 01/03/2016 10:30am Height 63 inches 5'3" Weight 230.00 lb Heart Rate 90 /min BP Systolic Sitting 136 mmHg BP Diastolic Sitting 74 mmHg Respiratory Rate 18 /min O2 % BldC Oximetry 98 % BMI (Body Mass Index) 40.7 kg/m2 12/20/2015 9:54am Height 62.75 inches 5'2.75" Weight 231.00 lb Heart Rate 83 /min BP Systolic 133 mmHg BP Diastolic 87 mmHg Body Temperature 98.4 F O2 % BldC Oximetry 96 % BMI (Body Mass Index) 41.2 kg/m2 12/13/2015 10:04am Height 62.75 inches 5'2.75" Weight 231.00 lb Heart Rate 84 /min BP Systolic Sitting 128 mmHg BP Diastolic Sitting 82 mmHg O2 % BldC Oximetry 98 % BMI (Body Mass Index) 41.2 kg/m2 11/10/2015 9:13am Height 62.75 inches 5'2.75" Weight 236.38 lb Heart Rate 88 /min BP Systolic 134 mmHg BP Diastolic 78 mmHg Respiratory Rate 14 /min BMI (Body Mass Index) 42.2 kg/m2 Neck Circumference in inches 17 07/26/2015 9:51am Height 62.75 inches 5'2.75" Weight 224.00 lb Heart Rate 88 /min BP Systolic Sitting 124 mmHg BP Diastolic Sitting 80 mmHg Respiratory Rate 14 /min Body Temperature 98.7 F O2 % BldC Oximetry 99 % BMI (Body Mass Index) 40.0 kg/m2 06/09/2015 9:56am Height 62.75 inches 5'2.75" Weight 223.00 lb Heart Rate 76 /min BP Systolic Sitting 128 mmHg BP Diastolic Sitting 80 mmHg Body Temperature 98.5 F O2 % BldC Oximetry 98 % BMI (Body Mass Index) 39.8 kg/m2 03/21/2015 11:59am Height 62.75 inches 5'2.75" Weight 222.50 lb Heart Rate 95 /min BP Systolic Sitting 134 mmHg BP Diastolic Sitting 88 mmHg Body Temperature 98.6 F O2 % BldC Oximetry 97 % BMI (Body Mass Index) 39.7 kg/m2 03/09/2015 3:10pm Height 62.75 inches 5'2.75" Weight 224.50 lb Heart Rate 92 /min BP Systolic Sitting 138 mmHg BP Diastolic Sitting 84 mmHg O2 % BldC Oximetry 97 % BMI (Body Mass Index) 40.1 kg/m2 11/25/2014 4:13pm Weight 222.25 lb Heart Rate 108 /min BP Systolic Sitting 130 mmHg BP Diastolic Sitting 72 mmHg Body Temperature 98.7 F O2 % BldC Oximetry 95 % 08/19/2014 10:50am Weight 210.50 lb Heart Rate 84 /min BP Systolic Sitting 106 mmHg BP Diastolic Sitting 76 mmHg Body Temperature 98.2 F 04/13/2014 1:57pm Height 63 inches 5'3" Weight 216.50 lb Heart Rate 84 /min BP Systolic Sitting 128 mmHg BP Diastolic Sitting 80 mmHg Body Temperature 99.2 F BMI (Body Mass Index) 38.3 kg/m2 02/26/2014 3:05pm Height 62.5 inches 5'2.50" Weight 214.00 lb Heart Rate 98 /min BP Systolic Sitting 136 mmHg BP Diastolic Sitting 90 mmHg Body Temperature 99.2 F BMI (Body Mass Index) 38.5 kg/m2 01/05/2014 3:14pm Height 62.5 inches 5'2.50" Weight 210.00 lb Heart Rate 80 /min BP Systolic Sitting 110 mmHg BP Diastolic Sitting 68 mmHg Respiratory Rate 16 /min Body Temperature 98.5 F BMI (Body Mass Index) 37.8 kg/m2 08/19/2012 9:54am Height 62 inches 5'2" Weight 206.00 lb Heart Rate 71 /min BP Systolic 130 mmHg BP Diastolic 90 mmHg Respiratory Rate 16 /min BMI (Body Mass Index) 37.7 kg/m2 09/14/2011 9:58am Height 62 inches 5'2" Weight 207.00 lb Heart Rate 72 /min BP Systolic Sitting 110 mmHg L BP Diastolic Sitting 80 mmHg L BMI (Body Mass Index) 37.9 kg/m2 07/11/2011 2:32pm Height 62 inches 5'2" Weight 209.00 lb Heart Rate 103 /min BP Systolic Sitting 144 mmHg L BP Diastolic Sitting 94 mmHg L BMI (Body Mass Index) 38.2 kg/m2 Results Test Date Facility Test Result H/L Range Note Basic Metabolic 01/14/2018 [facility] Sodium 139 mmol/L N 139- [address] [place] [address] [phone] Potassium 3.9 mmol/L N 3.5-5.0 Chloride 107 mmol/L N 101-111 Co2 Carbon Dioxide 25 mmol/L N 22-32 Anion Gap 7 mmol/L N 2-11 Glucose 124 mg/dL High 70-100 Blood Urea Nitrogen 17 mg/dL N 6-24 Creatinine 0.52 mg/dL N 0.51-0.95 BUN/Creatinine Ratio 32.7 High 8-20 Calcium 9.3 mg/dL N 8.6-10.3 Egfr Non- 125.9 >60 Egfr 161.9 >60 1 Laboratory test 01/14/2018 [facility] Hemoglobin A1c 5.4 % N 4.0-5.6 [address] (Glyco HGB) [place] [address] [phone] TSH (Thyroid Stim Horm) 0.39 mcIU/mL N 0.34-5.60 T3 Free 3.50 pg/mL N 2.5-3.9 Free T4 (Free Thyroxine) 0.82 ng/dL N 0.61-1.12 CBC Auto 09/30/2017 [facility] White Blood 11.9 10^3/uL High 3.5-10.[address] [place] [address] [phone] Red Blood Count 4.86 10^6/uL N 4.0-5.4 Hemoglobin 14.5 g/dL N 12.0-16.0 Hematocrit 41 % N 35-47 Mean Corpuscular Volume 85 fL N 80-97 Mean Corpuscular Hemoglobin 30 pg N 27-31 Mean Corpuscular HGB Conc 35 g/dL N 31-36 Red Cell Distribution Width 14 % N 10.5-15 Platelet Count 284 10^3/uL N 150-450 Mean Platelet Volume 8 um3 N 7.4-10.4 Abs Neutrophils 9.0 10^3/uL High 1.5-7.7 Abs Lymphocytes 2.0 10^3/uL N 1.0-4.8 Abs Monocytes 0.6 10^3/uL N 0-0.8 Abs Eosinophils 0.2 10^3/uL N 0-0.6 Abs Basophils 0.1 10^3/uL N 0-0.2 Abs Nucleated RBC 0 10^3/uL Granulocyte % 75.9 % N 38-83 Lymphocyte % 16.7 % Low 25-47 Monocyte % 5.2 % N 1-9 Eosinophil % 1.4 % N 0-6 Basophil % 0.8 % N 0-2 Nucleated Red Blood Cells % 0 Laboratory test 09/30/2017 [facility] Lactic Acid 1.5 mmol/L N 0.5-2.[address] [place] [address] [phone] Comp Metabolic 09/30/2017 [facility] Sodium 135 mmol/L N 133- [address] [place] [address] [phone] Potassium 3.3 mmol/L Low 3.5-5.0 Chloride 100 mmol/L Low 101-111 Co2 Carbon Dioxide 28 mmol/L N 22-32 Anion Gap 7 mmol/L N 2-11 Glucose 131 mg/dL High 70-100 Blood Urea Nitrogen 14 mg/dL N 6-24 Creatinine 0.49 mg/dL Low 0.51-0.95 BUN/Creatinine Ratio 28.6 High 8-20 Calcium 9.7 mg/dL N 8.6-10.3 Total Protein 7.2 g/dL N 6.4-8.9 Albumin 4.2 g/dL N 3.2-5.2 Globulin 3.0 g/dL N 2-4 Albumin/Globulin Ratio 1.4 N 1-3 Total Bilirubin 0.70 mg/dL N 0.2-1.0 Alkaline Phosphatase 54 U/L N 34-104 Alt 12 U/L N 7-52 Ast 15 U/L N 13-39 Egfr Non- 135.4 >60 Egfr 174.1 >60 4 Laboratory test 09/30/2017 [facility] Magnesium 2.0 mg/dL N 1.9-2.[address] [place] [address] [phone] C Reactive Protein 5.68 mg/L High < 5.00 5 TSH (Thyroid Stim Horm) 0.27 mcIU/mL Low 0.34-5.60 Troponin-I (TnI) 0.00 ng/mL <0.04 Free T4 (Free Thyroxine) 0.85 ng/dL N 0.61-1.12 Urine Culture And 05/09/2017 [facility] Urine Culture SEE RESULT [address] [place] [address] [phone] Ua Routine 05/09/2017 [facility] Ua Specific 1.020 [place] Ua PH 5 Ua Color DRK YELLOW Ua Appera CLEAR Ua WBC NEG Ua Protein + Ua Glucose NEG Ua Ketones NEG Ua Bilirubin NEG Ua Urobilinogen NEG Ua Nitrite NEG Ua Occult Blood LARGE Order 04/23/2017 [facility] Stress Test, <pending> [address] [facility] Pharmacologic [place], [place] [id number] [place] [phone] (Lexiscan) Laboratory 03/21/2017 [facility] Hemoglobin A1c 5.8 5-7 test finding Laboratory 02/15/2017 [facility] Culture Throat SEE RESULT 7 test finding [address] [place] [address] [phone] Laboratory 02/15/2017 [facility] Rapid Group A NEGITIVE test finding Strep Laboratory 09/12/2016 [facility] HPV Rna Negative N Negative 8 test finding [address] Ww/[place] [address] Genotype [phone] Trichomonas Vaginalis Rna Negative N Negative 9 Cytology SEE RESULT BELOW 10 GC/Chlamydia 09/12/2016 [facility] Chlamydia Negative N Negative Amplified Rna [address] trachomatis Rna [place], [place] [id number] [phone] Neisseria gonorrhoeae (GC) Rna Negative N Negative Laboratory 09/12/2016 [facility] Gardnerella/Yeast: SEE RESULT 11 test finding [address] Vaginal Dna BELOW [place], [place] [id number] [phone] Laboratory 09/03/2016 [facility] Vitamin D Total 25(Oh) 17.4 ng/ mL Low 30- 12 test finding [address] [place] [address] [phone] Lipid Profile 09/03/2016 [facility] Triglycerides 243 mg/dL N 13 (Trig/Chol/HDL [address] ) [place] [address] [phone] Cholesterol 174 mg/dL N 14 HDL Cholesterol 41.3 mg/dL N 15 LDL Cholesterol 84 mg/dL N 16 Laboratory test 07/05/2016 [facility] TSH (Thyroid 0.48 mcIU/mL N 0.34-5.60 [address] Stim Horm) [place] [address] [phone] CBC Auto Diff 07/05/2016 [facility] White Blood 10.5 10^3/uL N 3.5-10.[address] [place] [address] [phone] Red Blood Count 4.55 10^6/uL N 4.0-5.4 Hemoglobin 13.4 g/dL N 12.0-16.0 Hematocrit 39 % N 35-47 Mean Corpuscular Volume 85 fL N 80-97 Mean Corpuscular Hemoglobin 30 pg N 27-31 Mean Corpuscular HGB Conc 35 g/dL N 31-36 Red Cell Distribution Width 14 % N 10.5-15 Platelet Count 254 10^3/uL N 150-450 Mean Platelet Volume 8 um3 N 7.4-10.4 Abs Neutrophils 6.5 10^3/uL N 1.5-7.7 Abs Lymphocytes 2.8 10^3/uL N 1.0-4.8 Abs Monocytes 0.8 10^3/uL N 0-0.8 Abs Eosinophils 0.3 10^3/uL N 0-0.6 Abs Basophils 0.1 10^3/uL N 0-0.2 Abs Nucleated RBC 0 10^3/uL N Granulocyte % 61.8 % N 38-83 Lymphocyte % 26.8 % N 25-47 Monocyte % 7.2 % N 1-9 Eosinophil % 3.3 % N 0-6 Basophil % 0.9 % N 0-2 Nucleated Red Blood Cells % 0 N Laboratory test 07/05/2016 [facility] Hemoglobin A1c 5.5 % N Less than [address] (Glyco HGB) 6.0 [place] [address] [phone] Basic Metabolic 07/05/2016 [facility] Sodium 135 N 133-[address] mmol/[place] [address] [phone] Potassium 3.8 mmol/L N 3.5-5.0 Chloride 102 mmol/L N 101-111 Co2 Carbon Dioxide 27 mmol/L N 22-32 Anion Gap 6 mmol/L N 2-11 Glucose 108 mg/dL High 70-100 Blood Urea Nitrogen 11 mg/dL N 6-24 Creatinine 0.54 mg/dL N 0.51-0.95 BUN/Creatinine Ratio 20.4 High 8-20 Calcium 8.6 mg/dL N 8.6-10.3 Egfr Non- 121.5 N >60 Egfr 156.3 N >60 19 Laboratory test 07/05/2016 [facility] Vitamin D 15.2 ng/mL Low 30-50 [address] Total 25(Oh) [place] [address] [phone] Laboratory test 07/26/2015 [facility] Free T4 0.81 ng/mL N 0.61-1.[address] ([place] [address] Thyroxine) [phone] TSH (Thyroid Stim Horm) 0.49 ?IU/mL N 0.34-5.60 T3 Free 2.90 pg/mL N 2.5-3.9 Creatinine Random Urine 82.14 mg/dL N Total Protein Random Urine 19 mg/dL N Vitamin D Total 25(Oh) 22.0 ng/mL Low 30-50 Laboratory test finding 06/09/2015 [facility] Hemoglobin A1c 5.4 5-7 Ua Routine 06/09/2015 [facility] Ua Specific [place] 1.010 Ua PH 5 Ua Color yellow Ua Appera cloudy Ua WBC trace Ua Protein 300+ Ua Glucose neg Ua Ketones neg Ua Bilirubin neg Ua Urobilinogen neg Ua Nitrite neg Ua Occult Blood xlarge Laboratory test 04/18/2015 [facility] Vitamin D Total 15.3 Low 30-[address] 25(Oh) ng/[place] [address] [phone] Lipid Profile 04/18/2015 [facility] Triglycerides 144 mg/dL N 21 (Trig/Chol/HDL) [address] [place] [address] [phone] Cholesterol 183 mg/dL N 22 HDL Cholesterol 40.0 mg/dL N 23 LDL Cholesterol 114 mg/dL N 24 Basic Metabolic Panel 04/18/2015 [facility] Sodium 135 mmol/L N 133-[address] [place] [address] [phone] Potassium 4.0 mmol/L N 3.5-5.0 Chloride 100 mmol/L Low 101-111 Co2 Carbon Dioxide 29 mmol/L N 22-32 Anion Gap 6 mmol/L N 2-11 Glucose 112 mg/dL High 70-100 Blood Urea Nitrogen 15 mg/dL N 6-24 Creatinine 0.54 mg/dL N 0.51-0.95 BUN/Creatinine Ratio 27.8 High 8-20 Calcium 9.1 mg/dL N 8.6-10.3 Egfr Non- 122.1 N >60 Egfr 157.0 N >60 25 Laboratory test 03/21/2015 [facility] Culture SEE RESULT [address] [place] [address] [phone] Laboratory test 03/21/2015 [employer] [facility] Rapid Group A negative. finding Strep Laboratory test 11/30/2014 [facility] Free T4 0.75 ng/mL N 0.61-[address] [place], [place] [id number] [phone] Total T3 1.11 ng/mL N 0.87-1.78 Free T3 3.00 pg/mL N 2.5-3.9 TSH (Thyroid Stimulating Horm) 0.98 IU/mL N 0.34-5.60 CBC Auto 08/09/2014 [facility] White Blood 12.0 10^3/uL High 4.8-10.[address] [place] [address] [phone] Red Blood Count 4.29 10^6/uL N 4.0-5.4 Hemoglobin 13.4 g/dL N 12.0-16.0 Hematocrit 37 % N 35-47 Mean Corpuscular Volume 86 fL N 80-97 Mean Corpuscular Hemoglobin 31 pg N 27-31 Mean Corpuscular HGB Conc 36 g/dL N 31-36 Red Cell Distribution Width 13 % N 10.5-15 Platelet Count 267 10^3/uL N 150-450 Mean Platelet Volume 8 um3 N 7.4-10.4 Abs Neutrophils 6.8 10^3/uL N 1.5-7.7 Abs Lymphocytes 3.6 10^3/uL N 1.0-4.8 Abs Monocytes 0.9 10^3/uL High 0-0.8 Abs Eosinophils 0.5 10^3/uL N 0-0.6 Abs Basophils 0.1 10^3/uL N 0-0.2 Abs Nucleated RBC 0 10^3/uL N Granulocyte % 56.5 % N 38-83 Lymphocyte % 30.5 % N 25-47 Monocyte % 7.6 % N 1-9 Eosinophil % 4.4 % N 0-6 Basophil % 1.0 % N 0-2 Nucleated Red Blood Cells % 0 N Inr/Protime 08/09/2014 [facility] Inr 0.88 N 0.85-1.[address] [place] [address] [phone] Laboratory test 08/09/2014 [facility] Activated 30.1 N 24.0- 36.[address] [place] [address] Thrombo Time [phone] Comp Metabolic 08/09/2014 [facility] Sodium 134 mmol/L N 133- [address] [place] [address] [phone] Potassium 3.5 mmol/L N 3.5-5.0 27 Chloride 103 mmol/L N 101-111 Co2 Carbon Dioxide 26 mmol/L N 22-32 Anion Gap 5 mmol/L N 2-11 Glucose 99 mg/dL N 70-100 Blood Urea Nitrogen 20 mg/dL N 6-24 Creatinine 0.57 mg/dL N 0.51-0.95 BUN/Creatinine Ratio 35.1 High 8-20 Calcium 9.2 mg/dL N 8.6-10.3 Total Protein 6.4 g/dL N 6.4-8.9 Albumin 4.0 g/dL N 3.2-5.2 Globulin 2.4 g/dL N 2-4 Albumin/Globulin Ratio 1.7 N 1-3 Total Bilirubin 0.40 mg/dL N 0.2-1.0 Alkaline Phosphatase 55 U/L N 34-104 Alt 10 U/L N 7-52 Ast 14 U/L N 13-39 Egfr Non- 115.2 N >60 Egfr 148.2 N >60 28 Laboratory test 08/09/2014 [facility] Creatine 90 U/L N 10- 223 finding 101 [facility] [place] [address] [phone] CKMB 08/09/2014 [facility] CKMB ng/mL 2.5 ng/mL N 0.6-6.3 [address] [place] [address] [phone] Laboratory test 08/09/2014 [facility] Troponin I 0.00 N <0.[address] ng/[place] [address] [phone] Laboratory test 06/05/2014 [facility] Glucose 91 mg/dL N 70- 100 finding [address] [place] [address] [phone] Laboratory test 06/05/2014 [facility] Free T4 0.86 N 0.61- 1.[address] ng/[place] [address] [phone] TSH (Thyroid Stimulating Horm) 0.32 IU/mL Low 0.34-5.60 Total T3 1.13 ng/mL N 0.87-1.78 Free T3 2.80 pg/mL N 2.5-3.9 Wound 06/03/2014 [facility] Wound/Misc (SEE NOTE) 30 Culture/[address] [place] [address] Stain [phone] Cytology Non-Financial Services Specialist 04/08/2014 [facility] Ghislaine RUN DATE: [address] 04/08/ [place] [address] <SEE NOTE> [phone] Laboratory test 03/23/2014 [facility] Free T4 0.81 ng/mL N 0.61- finding [address]12 [place] [address] [phone] TSH (Thyroid Stimulating Horm) 0.29 IU/mL Low 0.34-5.60 HPV High 02/26/2014 [facility] Human Papillomavirus See Comment N [address] [place] [address] [phone] HPV High Risk Type 16, PCR Negative N Negative HPV High Risk Type 18, PCR Negative N Negative HPV Other Risk types Negative N Negative 33 Laboratory test 02/26/2014 [facility] Cytology RUN DATE: [address] 03/02/ <[place] [address] NOTE> [phone] Comp Metabolic 02/03/2014 [facility] Sodium 136 mmol/L N 133- [address] [place] [address] [phone] Potassium 4.4 mmol/L N 3.7-5.6 Chloride 102 mmol/L N 101-111 Co2 Carbon Dioxide 27 mmol/L N 22-32 Anion Gap 7 mmol/L N 2-11 Blood Urea Nitrogen 15 mg/dL N 6-24 Creatinine 0.61 mg/dL N 0.51-0.95 BUN/Creatinine Ratio 24.6 High 8-20 Calcium 9.5 mg/dL N 8.6-10.3 Total Protein 6.9 g/dL N 6.4-8.9 Albumin 4.3 g/dL N 3.2-5.2 Globulin 2.6 g/dL N 2-4 Albumin/Globulin Ratio 1.7 N 1-3 Total Bilirubin 0.60 mg/dL N 0.2-1.0 Alkaline Phosphatase 51 U/L N 34-104 Alt 13 U/L N 7-52 Ast 15 U/L N 13-39 Egfr Non- 106.5 N >60 Egfr 137.0 N >60 36 Laboratory test 02/03/2014 [facility] TSH (Thyroid 0.32 Low 0.34-5.60 [address] Stimulating IU/[place] [address] Horm) [phone] Free T4 0.82 ng/mL N 0.61-1.12 38 Lipid Profile 02/03/2014 [facility] Triglycerides 163 mg/dL N 39 (Trig/Chol/HDL) [address] [place] [address] [phone] Cholesterol 182 mg/dL N 40 HDL Cholesterol 43.9 mg/dL N 41 LDL Cholesterol 106 mg/dL N 42 Laboratory test 02/03/2014 [facility] Glucose 103 mg/dL High 70-[address] [place] [address] [phone] 1 Because ethnic data is not always readily available, this report includes an eGFR for both -Americans and non- Americans. The National Kidney Disease Education Program (NKDEP) does not endorse the use of the MDRD equation for patients that are not between the ages of 18 and 70, are , have extremes of body size, muscle mass, or nutritional status, or are non- or non-. According to the National Kidney Foundation, irrespective of diagnosis, the stage of the disease is based on the level of kidney function: Stage Description GFR(mL/min/1.73 m(2)) 1 Kidney damage with normal or decreased GFR 90 2 Kidney damage with mild decrease in GFR 60-89 3 Moderate decrease in GFR 30-59 4 Severe decrease in GFR 15-29 5 Kidney failure <15 (or dialysis) 2 Therapeutic target for the treatment of diabetes mellitus patients is <7% HBA1C, and in selective patients <6.0%. Please refer to [employer] Diabetes Association diabetic care guidelines for further information. 3 [facility] Severe Sepsis and Septic Shock Management Bundle Measure requires all lactic acids initially measuring >2.0 mmol/L be repeated. 4 Because ethnic data is not always readily available, this report includes an eGFR for both -Americans and non- Americans. The National Kidney Disease Education Program (NKDEP) does not endorse the use of the MDRD equation for patients that are not between the ages of 18 and 70, are , have extremes of body size, muscle mass, or nutritional status, or are non- or non-. According to the National Kidney Foundation, irrespective of diagnosis, the stage of the disease is based on the level of kidney function: Stage Description GFR(mL/min/1.73 m(2)) 1 Kidney damage with normal or decreased GFR 90 2 Kidney damage with mild decrease in GFR 60-89 3 Moderate decrease in GFR 30-59 4 Severe decrease in GFR 15-29 5 Kidney failure <15 (or dialysis) 5 Acute inflammation: >10.00 6 SEE RESULT BELOW Name: MARILUZ CHEN Jono : [address]: Loan Rocha NP Acct: [id number] Unit: [id number] AGE: 47 Location: [facility] Re05/09/17 SEX: F Status: REG REF SPEC: [id number] EFE: 05/09/17-[address]: Loan Rocha NP REQ: [id number] RECD: 05/09/17 STATUS: COMP _ SOURCE: URINE SPDESC: ORDERED: Urine Culture COMMENTS: [id number] Urine Source: Random Procedure Result Reported Site Urine Culture Final 05/10/17- 1602 ML No growth of clinically significant organisms * ML - MAIN LAB ([facility]) . END OF REPORT * ML=Testing performed at Main Lab DEPARTMENT OF PATHOLOGY, [address] [place] [address] Renny Yun M.D. Director [facility] # [id number] 7 SEE RESULT BELOW Name: MARILUZ CHEN Jono : [address]: Terry Morales MD Acct: [id number] Unit: [id number] AGE: 47 Location: [facility] Re02/15/17 SEX: F Status: REG REF SPEC: [id number] EFE: 02/15/[address]: Terry Morales MD REQ: [id number] RECD: 02/15/17 STATUS: COMP _ SOURCE: THROAT SPDESC: ORDERED: Throat Culture COMMENTS: [id number] Procedure Result Reported Site Throat Culture Final 02/17/17- 0856 ML Organism 1 NORMAL JOAN Quantity 1+ Throat cultures are clinically indicated to detect the presence of group A strep, arcanobacterium and yeast. In certain cases, predominating organisms will be reported. * ML - MAIN LAB ([facility]) . END OF REPORT * ML=Testing performed at Main Lab DEPARTMENT OF PATHOLOGY, [address] [place] [address] Renny Yun M.D. Director [facility] # [id number] 8 The high-risk HPV types detected by the assay include: 16, 18, 31, 33, 35, 39, 45, 51, 52, 56, 58, 59, 66, and 68. 9 [id number] GC/Chlamydia Source?: Thin Prep HPV Source?: Thin Prep Trichomonas Source: Thin Prep 10 SEE RESULT BELOW Name: MARILUZ CHEN : [address]: Filomena Zavaleta MD Acct: [id number] Unit: [id number] AGE: 46 Location: [facility] Re09/12/16 SEX: F Status: REG REF SPEC: [id number] EFE: 09/12/16-[address]: Filomena Zavaleta MD REQ: [id number] RECD: 09/13/16 STATUS: SOUT _ ORDERED: IMAGE ANALYSIS, HPV/Thin Prep, HPV 16/18 GENE COMMENTS: [id number] FINAL DIAGNOSIS Negative for Intraepithelial lesion or Malignancy Shift in joan suggestive of bacterial vaginosis A. Ectocervical/Endocervical Specimen Adequacy: Satisfactory of evaluation Transformation zone component identified Patient Information: HPV: High risk HPV RNA testing regardless of pap results. HPV 16/18 Genotype Reflex Actual Specimen Date: 09/12/16 Last Menstrual Date: 08/31/16 Previous Abnormal Pap Smears?:N Date Time Test Result Flag (u) Normal Range 09/12/16 1446 HPV RNA RFLX GE Negative Negative The high-risk HPV types detected by the assay include: 16, 18, 31, 33, 35, 39, 45, 51, 52, 56, 58, 59, 66, and 68. Signed (signature on file) SHARYN Burt(ASCP) 09/14 7769 This Pap test was evaluated with the assistance of the [employer] Test Imaging System. Due to cytologic findings at the senior j2ee developer microscope, comprehensive manual rescreening by a Business Insight And Analytics Manager may be required. The Pap Smear is a screening test designed to aid in the detection of premalignant and malignant conditions of the uterine cervix. It is not a diagnostic procedure and should not be used as the sole means of detecting cervical cancer. Both false- positive and false- negative reports do occur. Depending on your risk status, a Pap smear should be obtained and evaluated every 1-3 years. END OF REPORT * ML=Testing performed at Main Lab DEPARTMENT OF PATHOLOGY, [address] [place] [address] Renny Yun M.D. Director [facility] # [id number] 11 SEE RESULT BELOW Name: MARILUZ CHEN : [address]: Filomena Zavaleta MD Acct: [id number] Unit: [id number] AGE: 46 Location: [facility] Re09/12/16 SEX: F Status: REG REF SPEC: [id number] EFE: 09/12/16-[address] [facility] [address]: Filomena Zavaleta MD REQ: [id number] RECD: 09/13/16-1211 STATUS: COMP _ SOURCE: VAGINAL SPDESC: ORDERED: Linda Giles DNA COMMENTS: [id number] Procedure Result Reported Site Gardnerella/Yeast: Vaginal DNA Final 09/14/16- 0945 ML Organism 1 POSITIVE GARDNERELLA Organism 2 Negative Angela The presence of G. vaginalis, although suggestive, is not diagnostic for bacterial vaginosis. Results should be interpreted in conjuction with other clinical and laboratory data available. Women with vaginal discharge should be evaluated for risk factors of cervicitis and pelvic inflammatory disease, toxic shock syndrome (S.aureus), and if present, evaluated for organisms not included in this assay such as N. gonorrhoeae, C. trachomatis, Mobiluncus, Mycoplasma and/or Prevotella. Mixed infections may occur. The performance of this test on patient specimens collected during or immediately after antimicrobial therapy is unknown. The presence or absence of Angela species, or G. vaginalis cannot be used as a test for therapeutic success or failure. * ML - MAIN LAB ([facility]) . END OF REPORT * ML=Testing performed at Main Lab DEPARTMENT OF PATHOLOGY, [address] [place] [address] Renny Yun M.D. Director [facility] # [id number] 12 FASTING 12 HOUR 13 Desirable <150 Borderline high 150-199 High 200-499 Very High >500 14 Desirable <200 Borderline high 200-239 High >239 15 Low <40 Desirable: 40-60 High: >60 16 Desirable: <100 mg/dL Near Optimal: 100-129 mg/dL Borderline High: 130-159 mg/dL High: 160-189 mg/dL Very High: >189 mg/dL 17 FASTING 10 HOUR 18 Therapeutic target for the treatment of diabetes Mellitus patients is <7% HBA1C, and in selective patients <6.0%.Please refer to [employer] Diabetes Association Diabetic care guidelines for further information. 19 Because ethnic data is not always readily available, this report includes an eGFR for both -Americans and non- Americans. The National Kidney Disease Education Program (NKDEP) does not endorse the use of the MDRD equation for patients that are not between the ages of 18 and 70, are , have extremes of body size, muscle mass, or nutritional status, or are non- or non-. According to the National Kidney Foundation, irrespective of diagnosis, the stage of the disease is based on the level of kidney function: Stage Description GFR(mL/min/1.73 m(2)) 1 Kidney damage with normal or decreased GFR 90 2 Kidney damage with mild decrease in GFR 60-89 3 Moderate decrease in GFR 30-59 4 Severe decrease in GFR 15-29 5 Kidney failure <15 (or dialysis) 20 FASTING 10 HOUR 21 Desirable <150 Borderline high 150-199 High 200-499 Very High >500 22 Desirable <200 Borderline high 200-239 High >239 23 Low <40 Desirable: 40-60 High: >60 24 Desirable: <100 mg/dL Near Optimal: 100-129 mg/dL Borderline High: 130-159 mg/dL High: 160-189 mg/dL Very High: >189 mg/dL 25 Because ethnic data is not always readily available, this report includes an eGFR for both -Americans and non- Americans. The National Kidney Disease Education Program (NKDEP) does not endorse the use of the MDRD equation for patients that are not between the ages of 18 and 70, are , have extremes of body size, muscle mass, or nutritional status, or are non- or non-. According to the National Kidney Foundation, irrespective of diagnosis, the stage of the disease is based on the level of kidney function: Stage Description GFR(mL/min/1.73 m(2)) 1 Kidney damage with normal or decreased GFR 90 2 Kidney damage with mild decrease in GFR 60-89 3 Moderate decrease in GFR 30-59 4 Severe decrease in GFR 15-29 5 Kidney failure <15 (or dialysis) 26 SEE RESULT BELOW Name: ALEKSANDRA CHENRIChristo De La Cruz : [address]: Heriberto Guillory III, MD Acct: [id number] Unit: [id number] AGE: 45 Location: [facility] Re03/21/15 SEX: F Status: REG REF SPEC: [id number] EFE: 03/21/15-[address] [facility] [address]: Heriberto Guillory III, MD REQ: [id number] RECD: 03/21/15 STATUS: COMP _ SOURCE: THROAT SPDESC: ORDERED: Throat Culture Procedure Result Verified Site Throat Culture Final 03/23/15- 0846 ML Organism 1 NORMAL JOAN Quantity 3+ * ML - MAIN LAB ([facility]) . END OF REPORT * ML=Testing performed at Main Lab DEPARTMENT OF PATHOLOGY, [address] [place] [address] Renny Yun M.D. Director [facility] # [id number] 27 Potassium reference range changed effective 08/08/14 28 Because ethnic data is not always readily available, this report includes an eGFR for both -Americans and non- Americans. The National Kidney Disease Education Program (NKDEP) does not endorse the use of the MDRD equation for patients that are not between the ages of 18 and 70, are , have extremes of body size, muscle mass, or nutritional status, or are non- or non-. According to the National Kidney Foundation, irrespective of diagnosis, the stage of the disease is based on the level of kidney function: Stage Description GFR(mL/min/1.73 m(2)) 1 Kidney damage with normal or decreased GFR 90 2 Kidney damage with mild decrease in GFR 60-89 3 Moderate decrease in GFR 30-59 4 Severe decrease in GFR 15-29 5 Kidney failure <15 (or dialysis) 29 Reference Range and Interpretation: TnI (ng/mL) Interpretation Less Than 0.03 ng/mL Not supportive of diagnosis of CA 0.03 - 0.50 ng/mL Indeterminate: suggest serial studies if clinically indicated. Greater than 0.5 ng/mL Consistent with diagnosis of CA 30 RUN DATE: 06/05/14 [facility] LAB LIVE PAGE 1 RUN TIME: [address] [place] [address] Specimen Inquiry Name: MARILUZ CHEN : [address]: Alexander Retana MD Acct: [id number] Unit: [id number] AGE: 44 Location: ED Re06/03/14 SEX: F Status: DEP ER SPEC: [id number] EFE: 06/03/[address] [facility] [address]: Candy COTA REQ: [id number] RECD: 06/03/14 STATUS: VALENTINE DUNCAN DR: Rina Retana MD _ SOURCE: JENNA RUBIO SPDESC: ORDERED: Culture Stain Procedure Result Verified Site Wound/Misc Gram Stain Final 06/04/14- 0747 ML 4+ Polys 2+ Gram Positive Cocci Wound/Misc Culture Final 06/05/14- 1100 ML No Growth Day 2 END OF REPORT * ML=Testing performed at Main Lab DEPARTMENT OF PATHOLOGY, [facility] [place], [place] [address] Renny Yun M.D. Director [facility] # [id number] 31 RUN DATE: 04/08/14 [facility] LAB LIVE PAGE 1 RUN TIME: 1054 [facility] [place], [place] [address] Specimen Inquiry Name: MARILUZ CHEN : [address]: Jose Roberto Rogers MD Acct: [id number] Unit: [id number] AGE: 44 Location: THYROID Re04/08/14 SEX: F Status: REG REF SPEC: [id number] EFE: 04/08/14-1040 [facility] [address]: Heriberto Mclain MD REQ: [id number] RECD: 04/08/14-1214 STATUS: MAXIMO DUNCAN DR: Jose Roberto Zhu GRAIN CLEANER AND TRANSFER OPERATOR _ ORDERED: FN ASP DEEP, FNA IMMEDIATE S FINAL DIAGNOSIS Thyroid, right pole, Ultrasound guided, fine needle aspiration: Benign thyroid nodule: colloid/hyperplastic type COMMENTS: The specimen demonstrates moderate watery colloid, an abundant amount of benign appearing follicular epithelium arranged in uniform sheets, medium sized follicles and only occasional small groups. No features of papillary carcinoma are seen. In this clinical setting the risk of malignancy is less than 3%. Clinical management of this thyroid nodule should be based on clinical and radiographic features as well as the above. THYROID RIGHT - US GUIDED FINE NEEDLE ASPIRATION CONTINUED ON NEXT PAGE * ML=Testing performed at Main Lab DEPARTMENT OF PATHOLOGY, [facility] [place] [address] Renny Yun M.D. Director [facility] # [id number] RUN DATE: 04/08/14 [facility] LAB LIVE PAGE 2 RUN TIME: 1054 [facility] [place] [address] Specimen Inquiry Patient: CHENARIELLE PlataChristo De La Cruz [id number] (Continued) CLINICAL HISTORY (Continued) CLINICAL HISTORY 4.0cm right mid pole IMMEDIATE INTERPRETATION Pass 1-adequate GROSS DESCRIPTION 4 - alcohol fixed slide(s) 1 - passes Needle rinse in CytoLyt solution for thin layer non-ob/gyn physician test. Signed (signature on file) Kim Negrete MD 12/18 1054 END OF REPORT * ML=Testing performed at Main Lab DEPARTMENT OF PATHOLOGY, [facility] [place] [address] Renny Yun M.D. Director [facility] # [id number] 32 RESULT: Ectocervical/Endocervical 33 The following Other High Risk HPV types were not detected: 31, 33, 35, 39, 45, 51, 52, 56, 58, 59, 66, and 68 Test Performed by: [place] [address] Road Freight Brake Coupler: Rudy Walden III, M.D. 34 RUN DATE: 03/02/14 [facility] LAB LIVE PAGE 1 RUN TIME: 1108 [facility] [place], [place] [address] Specimen Inquiry Name: MARILUZ CHNE : [address]: Rina Zhu NP Acct: [id number] Unit: [id number] AGE: 44 Location: [facility] Re02/26/14 SEX: F Status: REG REF SPEC: [id number] EFE: 02/26/14-[address]: Rina Zhu NP REQ: [id number] RECD: 02/26/14-1849 STATUS: SOUT _ ORDERED: IMAGE ANALYSIS, HPV/Thin Prep FINAL DIAGNOSIS Negative for Intraepithelial lesion or Malignancy COMMENTS: Specimen sent to [facility] in [place], [place] on 03/02/14 by [id number] at 1058. Results will be reported separately. A. Ectocervical/Endocervical Specimen Adequacy: Satisfactory of evaluation Transformation zone component identified No menstrual history given Patient Information: HPV: High risk HPV DNA testing regardless of pap results. Actual Specimen Date: 02/26/14 LMP If Unknown: Last Menstrual Period Not Given. Cautery: N IUD: N Lesion, grossly demonstrate: N ?: N Post Menopausal?: N Hysterectomy?: N Previous Abnormal Pap Smears?:Y If Yes, enter Diagnosis: 2006 Signed (signature on file) SHARYN Hamm (ASCP) 03/02/14 1108 This Pap test was evaluated with the assistance of the [employer] Test Imaging System. Due to cytologic findings at the senior j2ee developer microscope, comprehensive manual rescreening by a Business Insight And Analytics Manager may be required. The Pap Smear is a screening test designed to aid in the detection of premalignant and malignant conditions of the uterine cervix. It is not a diagnostic procedure and should not be used as the sole means of detecting cervical cancer. Both false- positive and false- negative reports do occur. Depending on your risk status, a Pap smear shoudl be obtained and evaluated every 1-3 years. END OF REPORT * ML=Testing performed at Main Lab DEPARTMENT OF PATHOLOGY, [facility] [place], [place] [address] RUN DATE: 03/02/14 [facility] LAB LIVE PAGE 1 RUN TIME: 1108 [facility] [place], [place] [address] Specimen Inquiry Patient: ALEKSANDRA CHENRIA Jono [id number] (Continued) Renny Yun M.D. Director [facility] # [id number] 35 FASTING 36 Because ethnic data is not always readily available, this report includes an eGFR for both -Americans and non- Americans. The National Kidney Disease Education Program (NKDEP) does not endorse the use of the MDRD equation for patients that are not between the ages of 18 and 70, are , have extremes of body size, muscle mass, or nutritional status, or are non- or non-. According to the National Kidney Foundation, irrespective of diagnosis, the stage of the disease is based on the level of kidney function: Stage Description GFR(mL/min/1.73 m(2)) 1 Kidney damage with normal or decreased GFR 90 2 Kidney damage with mild decrease in GFR 60-89 3 Moderate decrease in GFR 30-59 4 Severe decrease in GFR 15-29 5 Kidney failure <15 (or dialysis) 37 FASTING 38 FASTING 39 Desirable <150 Borderline high 150-199 High 200-499 Very High >500 40 Desirable <200 Borderline high 200-239 High >239 41 Low <40 Desirable: 40-60 High: >60 42 Desirable <100 Near Optimal 100-129 Borderline high 130-159 High 160-189 Very High >189 Procedures Date Code Description Status 12/24/2017 [id number] Mammogram Completed 04/23/2017 45032 Stress Test Completed 04/23/2017 14428 Myocardial Perfusion Imaging Tomographic (Spect) Completed Multiple Studies 04/02/2017 79049 Stress Test Completed 03/26/2017 76457 Inject/Drain Joint/Bursa Major W/O US Completed 02/28/2017 20816 Inject/Drain Joint/Bursa Intermediate W/O US Completed 02/28/2017 77895 Inject/Drain Joint/Bursa Intermediate W/O US Completed 10/17/2016 [id number] Mammogram Completed 08/09/2016 [id number] Colonoscopy Completed 12/05/2015 32694 Polysomnography Sleep Staging 4+ Parameters Completed 11/28/2015 [id number] Mammogram Completed 09/08/2013 [id number] Colonoscopy Completed 06/18/2013 48229 Nerve Conduction 07-08 Studies Completed 06/18/2013 88691 Nerve Conduction 09-10 Studies Completed 08/19/2012 54314 EKG Tracing & Interpretation Completed 08/01/2011 17548 ECHO Stress Test Incl Perf Contiuous ekg Monitoring Completed W/Phys Superv 07/25/2011 73795 ECHO Transthoracic, Real-Time 2D With Doppler And Color Completed Flow 07/11/2011 60829 EKG Tracing & Interpretation Completed Encounters Type Date Location Provider Dx Diagnosis Office Visit 01/14/2018 [facility] Heriberto Wills.8 Oth abn and 11:40a Gaston Guillory M.D. 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 hip [place] M79.671 Pain in right foot E04.2 Nontoxic multinodular goiter N60.09 Solitary cyst of unspecified breast Z23 Encounter for immunization Office Visit 07/15/2017 11:15a Orthopedic Mimi Boyd, S63.652D Sprain of [facility] Services Of M.D. joint of C.M.A. right middle finger, subs Office Visit 06/27/2017 1:00p Orthopedic Mimi Boyd M79.641 Pain in right Services Of M.DSampson hand C.M.A. M79.644 Pain in right finger(s) Office Visit 06/04/2017 2:00p [facility] Filomena Zavaleta, M79.641 Pain in right Medicine - M.D. hand [place] M54.5 Low back pain R35.8 Other polyuria Office Visit 05/09/2017 10:40a [facility] Loan Rocha, R73.01 Impaired Medicine - N.P. fasting glucose [place] R35.0 Frequency of micturition R31.9 Hematuria, unspecified Office Visit 04/24/2017 12:10p [facility] Filomena S16.1xxA Strain of Gaston Zavaleta M.D. muscle, fascia [place] and tendon at neck level, init R11.2 Nausea with vomiting, unspecified Office Visit 03/28/2017 [facility] [place] M75.41 Impingement 9:15a Services Of CLAYTON [place] syndrome of right C.M.A. 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 fasting glucose [facility] N64.89 Other specified disorders of breast M25.571 Pain in right ankle and joints of right foot E78.1 Pure hyperglyceridemia D25.9 Leiomyoma of uterus, unspecified Office Visit 03/13/2017 11:30a [facility] [place] R07.9 Chest pain, Gaston Zavaleta M.D. unspecified [place] M75.41 Impingement syndrome of right shoulder S93.401A Sprain of unspecified ligament of right ankle, init encntr F43.0 Acute stress reaction Office Visit 02/28/2017 8:15a Orthopedic Giovana Benítez M75.41 Impingement Services Of MD syndrome of right C.M.A. 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 unspecified [address] J20.9 Acute bronchitis, unspecified Office Visit 01/22/2017 10:10a [facility] Internal Filomena M25.511 Pain in right Gaston Zavaleta M.D. shoulder [place] Office Visit 09/12/2016 1:00p [facility] [place] Z00.01 Encounter for Gaston Zavaleta M.D. general adult [facility] medical exam w abnormal findings Z12.4 Encounter for screening for malignant neoplasm of cervix E07.89 Other specified disorders of thyroid E78.1 Pure hyperglyceridemia N60.09 Solitary cyst of unspecified breast Z12.31 Encntr screen mammogram for malignant neoplasm of breast D25.9 Leiomyoma of uterus, unspecified B37.3 Candidiasis of vulva and vagina Office Visit 07/12/2016 10:10a [facility] [place] E55.9 Vitamin D Gaston Zavaleta M.D. deficiency, [place] unspecified R73.01 Impaired fasting glucose F32.89 Other specified depressive episodes Z23 Encounter for immunization Office Visit 06/20/2016 9:50a [facility] Filomena Waqar, R73.01 Impaired Medicine Robbie Tran fasting glucose [place] Z86.010 Personal history of colonic polyps E55.9 Vitamin D deficiency, unspecified E66.9 Obesity, unspecified F32.8 Other depressive episodes Office Visit 02/20/2016 [facility] [place] M17.12 Unilateral primary 10:00a Services Of Sravan Wolf. osteoarthritis, left C.M.A. 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 history of [place] colonic polyps M25.462 Effusion, left knee L72.3 Sebaceous cyst Office Visit 12/13/2015 9:50a [facility] Filomena Zavaleta, N60.01 Solitary cyst Gaston Avalos M.D. of right breast [place] E07.89 Other specified disorders of thyroid E66.09 Other obesity due to excess calories Office Visit 11/10/2015 8:45a [facility] [place] G47.9 Sleep disorder, Sleep Services Of MD Denise unspecified [employer] E66.09 Other obesity due to excess calories J44.9 Chronic obstructive pulmonary disease, unspecified Office Visit 07/26/2015 9:50a [facility] [place] M70.62 Trochanteric Medicine Robbie Zavaleta M.D. bursitis, left hip [place] R80.9 Proteinuria, unspecified R94.6 Abnormal results of thyroid function studies N63 Unspecified lump in breast G47.30 Sleep apnea, unspecified E55.9 Vitamin D deficiency, unspecified Office Visit 06/09/2015 9:50a [facility] Filomena Zavaleta, 790.21 Impaired Medicine - MLloyd Fasting Glucose [place] 268.9 Vitamin D Deficiency Unspec 724.5 Backache Unspec 300.00 Anxiety State Unspec 729.5 Pain In Limb Office Visit 03/21/2015 11:40a [facility] Heriberto Guillory, 784.1 Throat Pain Gaston Avalos M.D. [place] 496 COPD Airway Obstruction Chronic Not Class Elsewhere Office Visit 03/09/2015 3:00p [facility] Internal Heriberto Martinez 49Pema COPD Airway Gaston Guillory M.D. Obstruction [place] Chronic Not Class Elsewhere 401.1 Hypertension Benign 241.9 Goiter Nontoxic Nodular Unspec 784.0 Headache Office Visit 11/25/2014 4:00p [facility] Internal Heriberto Martinez 465.9 URI Upper Gaston Guillory M.D. Respiratory [place] Infections Acute Unspec Sites 496 COPD Airway Obstruction Chronic Not Class Elsewhere 791.0 Proteinuria 780.57 Unspecified Sleep Apnea 401.0 Hypertension Malignant Office Visit 08/19/2014 10:40a [facility] Rina Zhu, 380.4 Impacted Medicine - N.P. Cerumen [place] 461.8 Sinusitis Acute Other Office Visit 04/13/2014 2:00p [facility] Rina Zhu, 790.21 Impaired Medicine - N.P. Fasting Glucose [place] 241.9 Goiter Nontoxic Nodular Unspec 278.00 Obesity Unspec Office Visit 02/26/2014 3:00p [facility] Rina Zhu, 241.9 Goiter Nontoxic Medicine - N.P. Nodular Unspec [place] V76.19 Screening Breast Exam Malignant Neoplasms Other V76.2 Screening Malignant Neoplasm Cervix V72.31 Routine Financial Services Specialist Examination V03.82 Streptococcus Pneumoniae Vaccination Spec Other Office Visit 01/05/2014 3:00p [facility] Rina Zhu, V70.0 Examination Medicine - N.P. General Medical [place] Routine [facility] 564.1 Irritable Bowel Syndrome V79.0 Screening Depression V77.91 Screening For Lipoid Disorders 362.10 Retinopathy Background Unspec 241.9 Goiter Nontoxic Nodular Unspec 786.03 Apnea 401.0 Hypertension Malignant 380.4 Impacted Cerumen 530.81 Esophageal Reflux 300.00 Anxiety State Unspec 496 COPD Airway Obstruction Chronic Not Class Elsewhere Office Visit 08/19/2012 Angelina Qutaybeh S. 401.1 Hypertension 9:40a Cardiology [place] Benign 794.31 Electrocardiogram (ECG) (EKG) Abnormal 272.4 Hyperlipidemia Other Unspec 786.50 Pain Chest Unspec Office Visit 09/14/2011 Angelina Qutaybeh S. 401.1 Hypertension 10:00a Ruth Main M.D. Benign 794.31 Electrocardiogram (ECG) (EKG) Abnormal 272.4 Hyperlipidemia Other Unspec Office Visit 08/01/2011 Angelina Qutaybeh S. 401.0 Hypertension 11:30a [facility] [place] Malignant 794.31 Electrocardiogram (ECG) (EKG) Abnormal 786.50 Pain Chest Unspec 786.05 Shortness Of Breath Office Visit 07/25/2011 9:15a [facility] [place] ECHO 786.50 Pain Chest Schedule Unspec 786.05 Shortness Of Breath 401.0 Hypertension Malignant Office 07/11/2011 Angelina Qutaybeh S. 794.31 Electrocardiogram Visit 2:40p Ruth Main M.D. (ECG) (EKG) Abnormal 786.50 Pain Chest Unspec 786.05 Shortness Of Breath 272.4 Hyperlipidemia Other Unspec 401.1 Hypertension Benign Plan of Treatment Future Appointment(s):11/07/2018 9:45 am - Manolo Comer MD at [facility] [address]09/26/2018 - Manolo Comer, MDM25.561 Pain in right kneeFollow up:Follow Up: 6 bewozD44.461 Effusion, right kneeM22.2x1 Patellofemoral disorders, right knee
[2018-10-10 21:32] VITALS: BP 133/83
--- NOTE | 2018-10-10 21:50 | UC ---
Knee Pain HPI - HPI Summary HPI Summary: 48-year-old woman comes in with a chief complaint of right knee pain. On September 18, 2018 the patient tripped and fell landing on both of her knees giving her great deal of right knee pain. She was seen in the emergency department had a knee x-ray which showed mild lateral subluxation. She followed up with orthopedics and they put her into a neoprene brace. She scheduled for PT about a week. Pains been getting worse. Pain is mostly in the anterior knee but it's throughout the knee joint and she feels the knee joint is swollen. She has pain in the lateral aspects and the posterior aspects addition to the anterior knee now. Pain is worse when she walks. She feels like her right calf forms and not when she walks. No fevers or chills feels well otherwise. She's been taking some naproxen does not feel like it's helping very much. - History of Current Complaint Chief Complaint: UCLowerExtremity Stated Complaint: KNEE PAIN Time Seen by Provider: 10/10/18 21:26 Hx Last Menstrual Period: 08/03/18 Pain Intensity: 9 - Allergies/Home Medications Allergies/Adverse Reactions: Allergies Allergy/AdvReac Type Severity Reaction Status Date / Time No Known Allergies Allergy Verified 10/10/18 21:32 Home Medications: Home Medications metFORMIN* [Glucophage 500 MG TAB *] 500 mg PO DAILY 10/10/18 [History Confirmed 10/10/18] PMH/Surg Hx/FS Hx/Imm Hx Previously Healthy: Yes Endocrine History: Diabetes Cardiovascular History: Hypertension Respiratory History: Asthma GI/ History: Gastroesophageal Reflux - Surgical History Surgical History: Yes Surgery Procedure, Year, and Place: L BREAST LUMPECTOMY 2008 BENIGN. TUBAL LIGATION. C SECTION X 3. THYROID FNA BENIGN - Family History Known Family History: Positive: Other Family History: mom w/ lung ca - Social History Alcohol Use: Occasionally Substance Use Type: None Smoking Status (MU): Former Smoker Have You Smoked in the Last Year: No Household Exposure Type: Cigarettes Review of Systems All Other Systems Reviewed And Are Negative: Yes Constitutional: Positive: Negative Skin: Positive: Negative Eyes: Positive: Negative ENT: Positive: Negative Respiratory: Positive: Negative Cardiovascular: Positive: Negative Gastrointestinal: Positive: Negative Motor: Positive: Negative Neurovascular: Positive: Negative Musculoskeletal: Positive: Other: - see hpi Neurological: Positive: Negative Psychological: Positive: Negative Is Patient Immunocompromised?: No Physical Exam Triage Information Reviewed: Yes Appearance: Well-Appearing, Well-Nourished, Pain Distress - mild with rom and manipulation of right knee Vital Signs: Initial Vital Signs Temp 98.2 F 10/10/18 21:27 Pulse 99 10/10/18 21:27 Resp 18 10/10/18 21:27 BP 133/83 10/10/18 21:27 Pulse Ox 96 10/10/18 21:27 Vital Signs Reviewed: Yes Eye Exam: Normal Eyes: Positive: Conjunctiva Clear Neck exam: Normal Neck: Positive: Supple Respiratory: Positive: No respiratory distress Musculoskeletal: Positive: Other: - Right knee has an effusion. It is diffusely tender in the posterior aspects lateral aspects and over the patella. The greatest area of tenderness is with palpation and movement of the patella. Calf is nontender to palpation on examination and it's not swollen. Hip and ankle on that side have full range of motion. Neurological Exam: Normal Neurological: Positive: Alert, Muscle Tone Normal Psychological Exam: Normal Psychological: Positive: Age Appropriate Behavior Skin Exam: Normal Knee Pain Course/Dx - Course Course Of Treatment: I discussed the x-rays with the patient I compared prior x- rays of the right knee. He does have some mild subluxation of the patella laterally which I believe is the source of her pain and the knee swelling. The plan is to continue using the brace icing and resting as much as possible starting to strengthen the quadriceps. Patient has an appointment with physical therapy the next week. Patient's been having intermittent right calf pain. She does not have that pain now and is nontender to palpation. His custody possibility of a deep venous thrombosis. I recommended going to the emergency department for an ultrasound if if the calf pain comes and stays or if it's tender to palpation. Follow-up with physical therapy and eventually orthopedics return here or go to the emergency department if any other questions or concerns. - Differential Dx/Diagnosis Provider Diagnosis: Effusion, right knee, Patellofemoral syndrome, right Discharge - Sign-Out/Discharge Documenting (check all that apply): Patient Departure All imaging exams completed and their final reports reviewed: No - Discharge Plan Condition: Stable Disposition: HOME Patient Education Materials: Patellofemoral Pain Syndrome (ED), Swollen Knee Joint (ED) Referrals: Mary Grace Palomares MD [Primary Care Provider] - Greyson Frazier MD [Medical Doctor] - Additional Instructions: FOLLOW UP WITH ORTHOPEDICS. GET RECHECKED FOR ANY WORSENING OF YOUR CONDITION OR QUESTIONS OR CONCERNS. - Billing Disposition and Condition Condition: STABLE Disposition: Home
== END 2018-10-10 22:45 | disposition home or self-care (01) ==
LOC: UCEAST 21:23
DX: M22.2X1 Patellofemoral disorders, right knee (principal); M25.461 Effusion, right knee; I10 Essential (primary) hypertension; E11.9 Type 2 diabetes mellitus without complications; J45.909 Unspecified asthma, uncomplicated; Z87.891 Personal history of nicotine dependence; W01.0XXA Fall on same level from slipping, tripping and stumbling without subsequent striking against object, initial encounter; Y92.9 Unspecified place or not applicable
CPT/HCPCS: 99211; G0463

== ENCOUNTER 2018-11-11 19:09 | Emergency (ER) | payer OTHER ==
--- OUTSIDE RECORDS SUMMARY | 2018-11-11 19:46 | XMS REPORT | Continuity of Care Document ---
:1970 External Reference #:[id number] Author Name Anastasiya Leonard Care Team Providers Name Role Phone Mary Grace Palomares MD Primary Care Physician Unavailable Payers Type Date Identification Numbers Payment Provider Subscriber Policy Number: [id number] Jesus Mariluz Chen Group Number: [id number] [address] PayID: [id number] [place] [address] Effective: 2016 Policy Number: [id number] Nea Comp Mariluz Chen Onset: 2016 Group Name: [id number] [facility] [address] PayID: [id number] [place] [address] Expires: 2016 Policy Number: [employer] Medicaid Mariluz Chen [id number] PayID: [id number] [address] [address] [place] [address] Onset: 2017 Policy Number: [id number] [place] Mariluz Chen PayID: [id number] [place] [address] [place] [address] Policy Number: [id number] Controverted Mariluz Y Rony PayID: [id number] Advance Directives Description No Information Available Problems [...] N.P. Active Onset: 04/23/2014 Uterine leiomyoma Rina Zhu N.P. 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 day as needed Ibuprofen Active Capsules 200mg as needed Unknown Losartan Active Tablets 100-25mg 90tab Take 1 Filomena Potassium/Hydroc s Tablet By florencia Zavaletaorothiazide Mouth M.D. Every Day Metoprolol Active Tablets ER 25mg 90tab Take 1 Filomena Succinate ER / 24HR s Tablet By Jarred Zavaleta M.D. Every Day Metformin HCL Active Unknown Meloxicam 08/26 Hx Tablets 7.5mg 60tab Take 1 M25.552 Filomena s Tablet By Robbie Zavaleta Mouth M.DSampson 12/03 Twice A Day as Needed For Pain, Avoid Other NSAIDS (Ibuprofen , Aleve, Etc) Diclofenac 07/15 Hx Gel 1% 100gm apply 4 S63.652D Mimi Sodium /2016 times Boyd, - daily as M.D. 12/04 needed for pain Azithromycin 02/15 Hx Tablets 250mg 6tabs 2 tab J20.9 Terry /2016 today and Pachikara, - then 1tab M.D. 02/19 daily Diclofenac 01/[address] 75mg 60tab take 1 tab M25.511 Zaneb Sodium s by mouth MD Jeyson - twice a 03/13 day with food Cyclobenzaprine 01/22 Hx Tablets 5mg 10tab take one M25.511 Filomena HCL s tablet by Waqar, - mouth at M.D. 03/13 night /2016 Metronidazole 09/14 Hx Gel 0.75% 1unit apply Filomena /2016 s intravagin Waqar, - ally once M.D. 01/15 a day x days Fluconazole 09/12 Hx Tablets 150mg 2tabs 1 by mouth B37.3 Filomena every day Waqar, - M.D. 01/15 Ergocalciferol 09/12 Hx Capsules 95932Apms 8caps 1 tab by E55.9 Filomena mouth Waqar, - every week M.D. 01/15 Ergocalciferol 07/12 Hx Capsules 12377Nyjk 8caps 1 tab by E55.9 Filomena mouth Waqar, - every week M.D. 09/12 Citalopram 06/20 Hx Tablets 10mg 30tab Take 1 F32.8 Filomena Hydrobromide s Tablet By Waqar, - Mouth M.D. 01/15 Every Naproxen 02/19 Hx Tablets 500mg 60tab 1 tablet M17.12 Pauline s with food Luciano, - by mouth M.D. 07/12 twice a day Zithromax Z-Yared 01/02 Hx Tablets 250mg 6tabs 2 tabs J02.9 Erinn day#1, 1 MD Denise - tab daily 05/11 for 4 days /2015 Ergocalciferol 06/09 Hx Capsules 72043Tkuf 8caps 1 tab by E55.9 Filomena /2014 mouth Zavaleta, - every week M.D. 11/09 Amoxicillin/Clav 08/19 Hx Tablets 875-125mg 14tab 1 tab 461.8 Rina ulanate s twice a Audra, Potassium - day x 7 N.P. Fluticasone 08/19 Hx Suspension 50mcg/Act 1bott 2 spray in 461.8 Rina Propionate /2013 le each Audra, - nostril in N.P. 03/09 am /2014 Culturelle 01/05 Hx Capsules 30cap 1 cap by 564.1 Rina [facility] s mouth by Audra, - mouth N.P. /08 Metamucil 01/05 Hx Capsules 0.52gm 60cap 1 cap by 564.1 Rina /2013 s mouth Audra, - twice a N.P. 03/09 day /2014 water Debrox 01/05 Hx Solution 6.5% 1Bott 5 drops in 380.4 Rina /2013 le l ear Audra, - twice a N.P. 11/25 day days, then 5 drops in each ear [...] day Unknown /0000 - 07/26 Vitamin D Hx Tablets 2000Unit 1 by mouth E55.9 [...] CPT Code Status Date Vaccine Lot # [id number] Given 08/26/2017 Influenza Virus Vaccine, Quadrivalent, Split, [id number] Preservative Free 44333 Given 07/12/2016 Influ Virus Vaccine, Quadrivalent, Split Virus, [place] [id number] [address] Given 06/28/2015 Influenza Virus Vaccine, Quadrivalent, Split, Preservative Free 05759 Given 02/04/2015 Tetanus And Diptheria (Td) For Adult Use Preservative Free 02386 Given 11/01/2014 Flu Vaccine Split Virus Preservative Free For Indiv [id number] Older 77804 Given 02/26/2014 Pneumonia Vaccine [id number] Vital Signs Date Vital Result Comment 11/11/2018 10:01am Height 63 inches 5'3" Weight 228.00 lb Heart Rate 80 /min BP Systolic 138 mmHg BP Diastolic 90 mmHg Body Temperature 98.8 F Pain Level 8 BMI (Body Mass Index) 40.4 kg/m2 09/26/2018 1:07pm Height 63 inches 5'3" Weight [...] Result H/L Range Note Basic Metabolic 01/14/2018 [facility] Sodium 139 mmol/L N 139- [address] [place] [address] [phone] Potassium 3.9 mmol/L N 3.5-5.0 Chloride 107 mmol/L N 101-111 Co2 Carbon Dioxide 25 mmol/L N 22-32 Anion Gap 7 mmol/L N 2-11 Glucose 124 mg/dL High 70-100 Blood Urea Nitrogen 17 mg/dL N 6-24 Creatinine 0.52 mg/dL N 0.51-0.95 BUN/Creatinine Ratio 32.7 High 8-20 Calcium 9.3 mg/dL N 8.6-10.3 Egfr Non- 125.9 >60 Egfr 161.9 >60 1 Laboratory test 01/14/2018 [facility] Hemoglobin A1c 5.4 % N 4.0-5.6 [address] (Glyco HGB) [place] [address] [phone] TSH (Thyroid Stim Horm) 0.39 mcIU/mL N 0.34-5.60 T3 Free 3.50 pg/mL N 2.5-3.9 Free T4 (Free Thyroxine) 0.82 ng/dL N 0.61-1.12 CBC Auto 09/30/2017 [facility] White Blood 11.9 10^3/uL High 3.5-10.[address] [place] [address] [phone] Red Blood Count 4.86 10^6/uL N 4.0-5.4 [...] Blood Cells % 0 Laboratory test 09/30/2017 [facility] Lactic Acid 1.5 mmol/L N 0.5-2.0 [address] [place] [address] [phone] Comp Metabolic 09/30/2017 [facility] Sodium 135 mmol/L N 133- [address] [place] [address] [phone] Potassium 3.3 mmol/L Low 3.5-5.0 Chloride 100 [...] Egfr 174.1 >60 4 Laboratory test 09/30/2017 [facility] Magnesium 2.0 mg/dL N 1.9-2.[address] [place] [address] [phone] C Reactive Protein 5.68 mg/L High < 5.00 5 TSH (Thyroid Stim Horm) 0.27 mcIU/mL Low 0.34-5.60 Troponin-I (TnI) 0.00 ng/mL <0.04 Free T4 (Free Thyroxine) 0.85 ng/dL N 0.61-1.12 Urine Culture And 05/09/2017 [facility] Urine Culture SEE RESULT [address] [place] [address] [phone] Ua Routine 05/09/2017 [facility] Ua Specific 1.020 [place] Ua PH 5 Ua Color DRK YELLOW Ua Appera CLEAR Ua WBC NEG Ua Protein + Ua Glucose NEG Ua Ketones NEG Ua Bilirubin NEG Ua Urobilinogen NEG Ua Nitrite NEG Ua Occult Blood LARGE Order 04/23/2017 [facility] Stress Test, <pending> [address] [place] [place] [address] Nuclear [phone] (Lexiscan) Laboratory 03/21/2017 [facility] Hemoglobin A1c 5.8 5-7 test finding Laboratory 02/15/2017 [facility] Rapid Group A NEGITIVE test finding Strep Laboratory 02/15/2017 [facility] Culture Throat SEE RESULT 7 test finding [address] [place] [address] [phone] Laboratory 09/12/2016 [facility] HPV Rna Negative N Negative 8 test finding [address] Ww/[place] [address] Genotype [phone] Trichomonas Vaginalis Rna Negative N Negative 9 Cytology SEE RESULT BELOW 10 GC/Chlamydia 09/12/2016 [facility] Chlamydia Negative N Negative Amplified Rna [address] [place] [address] [phone] Neisseria gonorrhoeae (GC) Rna Negative N Negative Laboratory 09/12/2016 [facility] Gardnerella/Yeast: SEE RESULT 11 test finding [address] Vaginal Dna BELOW [place], [place] [phone] Laboratory 09/03/2016 [facility] Vitamin D Total 25(Oh) 17.4 ng/ mL Low 30- 12 test finding [address] [place] [address] [phone] Lipid Profile 09/03/2016 [facility] Triglycerides 243 mg/dL N 13 (Trig/Chol/HDL [address] ) [place], [place] [id number] [phone] Cholesterol 174 mg/dL N 14 HDL Cholesterol 41.3 mg/dL N 15 LDL Cholesterol 84 mg/dL N 16 Laboratory test 07/05/2016 [facility] TSH (Thyroid 0.48 mcIU/mL N 0.34-5.60 [address] Stim Horm) [place], [place] [id number] [phone] CBC Auto Diff 07/05/2016 [facility] White Blood 10.5 10^3/uL N 3.5-10.[address] [place] [address] [phone] Red Blood Count 4.55 10^6/uL N 4.0-5.4 [...] Cells % 0 N Laboratory test 07/05/2016 [facility] Hemoglobin A1c 5.5 % N Less than [address] (Glyco HGB) 6.0 [place] [address] [phone] Basic Metabolic 07/05/2016 [facility] Sodium 135 N 133-[address] mmol/[place] [address] [phone] Potassium 3.8 mmol/L N 3.5-5.0 Chloride 102 mmol/L N 101-111 Co2 Carbon Dioxide 27 mmol/L N 22-32 Anion Gap 6 mmol/L N 2-11 Glucose 108 mg/dL High 70-100 Blood Urea Nitrogen 11 mg/dL N 6-24 Creatinine 0.54 mg/dL N 0.51-0.95 BUN/Creatinine Ratio 20.4 High 8-20 Calcium 8.6 mg/dL N 8.6-10.3 Egfr Non- 121.5 N >60 Egfr 156.3 N >60 19 Laboratory test 07/05/2016 [facility] Vitamin D 15.2 ng/mL Low 30-50 [address] Total 25(Oh) [place] [address] [phone] Laboratory test 07/26/2015 [facility] Free T4 0.81 ng/mL N 0.61-1.[address] ([place] [address] Thyroxine) [phone] TSH (Thyroid Stim Horm) 0.49 ?IU/mL N 0.34-5.60 T3 Free 2.90 pg/mL N 2.5-3.9 Creatinine Random Urine 82.14 mg/dL N Total Protein Random Urine 19 mg/dL N Vitamin D Total 25(Oh) 22.0 ng/mL Low 30-50 Laboratory test finding 06/09/2015 [facility] Hemoglobin A1c 5.4 5-7 Ua Routine 06/09/2015 [facility] Ua Specific [place] 1.010 Ua PH 5 Ua Color yellow Ua Appera cloudy Ua WBC trace Ua Protein 300+ Ua Glucose neg Ua Ketones neg Ua Bilirubin neg Ua Urobilinogen neg Ua Nitrite neg Ua Occult Blood xlarge Basic Metabolic Panel 04/18/2015 [facility] Sodium 135 mmol/L N 133-[address] [place] [address] [phone] Potassium 4.0 mmol/L N 3.5-5.0 Chloride 100 mmol/L Low 101-111 Co2 Carbon Dioxide 29 mmol/L N 22-32 Anion Gap 6 mmol/L N 2-11 Glucose 112 mg/dL High 70-100 Blood Urea Nitrogen 15 mg/dL N 6-24 Creatinine 0.54 mg/dL N 0.51-0.95 BUN/Creatinine Ratio 27.8 High 8-20 Calcium 9.1 mg/dL N 8.6-10.3 Egfr Non- 122.1 N >60 Egfr 157.0 N >60 21 Lipid Profile 04/18/2015 [facility] Triglycerides 144 mg/dL N 22 (Trig/Chol/HDL) [address] [place] [address] [phone] Cholesterol 183 mg/dL N 23 HDL Cholesterol 40.0 mg/dL N 24 LDL Cholesterol 114 mg/dL N 25 Laboratory test 04/18/2015 [facility] Vitamin D 15.3 ng/mL Low 30-[address] Total 25(Oh) [place] [address] [phone] Laboratory test 03/21/2015 [facility] Culture SEE RESULT [address] [place] [address] [phone] Laboratory test 03/21/2015 [facility] Rapid Group negative. finding A Strep Laboratory test 11/30/2014 [facility] Free T4 0.75 ng/mL N 0.61-1.[address] [place] [address] [phone] Total T3 1.11 ng/mL N 0.87-1.78 Free T3 3.00 pg/mL N 2.5-3.9 TSH (Thyroid Stimulating Horm) 0.98 IU/mL N 0.34-5.60 Laboratory test 08/09/2014 [facility] Creatine Kinase 90 U/L N 10-[address] [place] [address] [phone] Comp Metabolic 08/09/2014 [facility] Sodium 134 N 133-[address] mmol/[place] [address] [phone] Potassium 3.5 mmol/L N 3.5-5.0 27 Chloride [...] >60 Egfr 148.2 N >60 28 Laboratory 08/09/2014 [facility] Activated 30.1 N 24.0-36.1 test finding [address] [place] [place] [address] Thrombo Time [phone] CKMB 08/09/2014 [facility] CKMB ng/mL 2.5 ng/mL N 0.6-6.[address] [place] [address] [phone] Laboratory 08/09/2014 [facility] Troponin I 0.00 ng/mL N < 0.03 [address] [place] [address] [phone] CBC Auto Diff 08/09/2014 [facility] White Blood 12.0 High 4.8- 10.[address] Count 10^3/[place] [address] [phone] Red Blood Count 4.29 10^6/uL N 4.0-5.4 [...] Blood Cells % 0 N Inr/Protime 08/09/2014 [facility] Inr 0.88 N 0.85-1.[address] [place] [address] [phone] Laboratory test 06/05/2014 [facility] Free T4 0.86 ng/mL N 0.61-1.[address] [place] [address] [phone] TSH (Thyroid Stimulating Horm) 0.32 IU/mL Low 0.34-5.60 Total T3 1.13 ng/mL N 0.87-1.78 Free T3 2.80 pg/mL N 2.5-3.9 Laboratory test 06/05/2014 [facility] Glucose 91 mg/dL N 70- [address] [place] [address] [phone] Wound 06/03/2014 [facility] Wound/Misc (SEE NOTE) 30 Culture/[address] [place] [address] Stain [phone] Cytology Non-Synthetic Staple Extruder 04/08/2014 [facility] Ghislaine RUN DATE: [address] 04/08/ [place] [address] <SEE NOTE> [phone] Laboratory test 03/23/2014 [facility] Free T4 0.81 ng/mL N 0.61-1.[address] [place] [address] [phone] TSH (Thyroid Stimulating Horm) 0.29 IU/mL Low 0.34-5.60 Laboratory test 02/26/2014 [facility] Cytology RUN DATE: [address] 03/02/ <[place] [address] NOTE> [phone] HPV High Risk 02/26/2014 [facility] Human See Comment N [address] [place] [address] Source [phone] HPV High Risk Type 16, PCR Negative N Negative HPV High Risk Type 18, PCR Negative N Negative HPV Other Risk types Negative N Negative 34 Laboratory 02/03/2014 [facility] TSH (Thyroid 0.32 Low 0.34- 5.60 35, [address] Stimulating IU/[place] [address] Horm) [phone] Free T4 0.82 ng/mL N 0.61-1.12 37 Comp Metabolic Panel 02/03/2014 [facility] Sodium 136 mmol/L N 133-[address] [place], [place] [address] [phone] Potassium 4.4 mmol/L N 3.7-5.6 Chloride 102 [...] 106.5 N >60 Egfr 137.0 N >60 38 Lipid Profile 02/03/2014 [facility] Triglycerides 163 mg/dL N 39 (Trig/Chol/HDL) [address] [place] [address] [phone] Cholesterol 182 mg/dL N 40 HDL Cholesterol 43.9 mg/dL N 41 LDL Cholesterol 106 mg/dL N 42 Laboratory test 02/03/2014 [facility] Glucose 103 mg/dL High 70-100 finding [address] [place] [address] [phone] 1 Because ethnic data is not always [...] in selective patients <6.0%. Please refer to [place] [employer] diabetic care guidelines for further information. 3 [facility] Severe Sepsis and Septic Shock Management [...] inflammation: >10.00 6 SEE RESULT BELOW Name: CHENARIELLE PlataDeniz De La Cruz : [address]: Loan Rocha REGULATORY COMPLIANCE COORDINATOR Acct: [id number] Unit: [id number] AGE: 47 Location: [facility] Re05/09/17 SEX: F Status: REG REF SPEC: [id number] EFE: 05/09/17-[address] [facility] [address]: Loan Rocha NP REQ: [id number] RECD: 05/09/17 STATUS: COMP _ SOURCE: URINE SPDESC: ORDERED: Urine Culture COMMENTS: [id number] Urine Source: Random Procedure Result Reported Site Urine Culture Final 05/10/17- 1602 ML No growth of clinically significant organisms * ML - MAIN LAB ([facility]) . END OF REPORT * ML=Testing performed at Main Lab DEPARTMENT OF PATHOLOGY, [address] [place] [address] Renny Yun M.D. Director [facility] # [id number] 7 SEE RESULT BELOW Name: MARILUZ CHEN : [address]: Terry Morales MD Acct: [id number] Unit: [id number] AGE: 47 Location: [facility] Re02/15/17 SEX: F Status: REG REF SPEC: [id number] EFE: 02/15/17-[address] [facility] [address]: Terry Morales MD REQ: [id number] RECD: 02/15/17 STATUS: COMP _ SOURCE: THROAT SPDESC: ORDERED: Throat Culture COMMENTS: [id number] Procedure Result Reported Site Throat Culture Final 02/17/17- 0856 ML Organism 1 NORMAL JOAN Quantity 1+ Throat cultures are clinically indicated to detect the presence of group A strep, arcanobacterium and yeast. In certain cases, predominating organisms will be reported. * ML - [facility] ([facility]) . END OF REPORT * ML=Testing performed at Main Lab DEPARTMENT OF PATHOLOGY, [address] [place] [address] Renny Yun M.D. Director [facility] # [id number] 8 The high-risk HPV types detected by the assay include: 16, 18, 31, 33, 35, 39, 45, 51, 52, 56, 58, 59, 66, and 68. 9 [id number] GC/Chlamydia Source?: Thin Prep HPV Source?: Thin Prep Trichomonas Source: Thin Prep 10 SEE RESULT BELOW Name: MARILUZ CHEN : [address]: Filomena Zavaleta MD Acct: [id number] Unit: [id number] AGE: 46 Location: [facility] Re09/12/16 SEX: F Status: REG REF SPEC: [id number] EFE: 09/12/16-[address] [facility] [address]: Filomena Zavaleta MD REQ: [id number] RECD: 09/13/16 STATUS: SOUT _ ORDERED: IMAGE ANALYSIS, HPV/Thin Prep, HPV 16/18 GENE COMMENTS: [id number] FINAL DIAGNOSIS Negative for Intraepithelial lesion or [...] Signed (signature on file) SHARYN Burt(ASCP) 09/14 0100 This Pap test was evaluated with the assistance of the ThinPrep Test Imaging System. Due to cytologic findings at the search engine optimization manager microscope, comprehensive manual rescreening by a Oil Dipper may be required. The Pap Smear is [...] performed at Main Lab DEPARTMENT OF PATHOLOGY, [address] [place] [address] Renny Yun M.D. Director [facility] # [id number] 11 SEE RESULT BELOW Name: MARILUZ CHEN : [address]: Filomena Zavaleta MD Acct: [id number] Unit: [id number] AGE: 46 Location: [facility] Re09/12/16 SEX: F Status: REG REF SPEC: [id number] EFE: 09/12/16-[address] [facility] [address]: Filomena Zavaleta MD REQ: [id number] RECD: 09/13/16 STATUS: COMP _ SOURCE: VAGINAL [facility]: ORDERED: Tisha,Yeast DNA COMMENTS: [id number] Procedure Result Reported Site Gardnerella/Yeast: Vaginal DNA Final 09/14/16944 ML Organism 1 POSITIVE GARDNERELLA Organism 2 [...] test for therapeutic success or failure. * - [facility] ([facility]) . END OF REPORT * ML=Testing performed at Main Lab DEPARTMENT OF PATHOLOGY, [address] [place] [address] Renny Yun M.D. Director [facility] # [id number] 12 FASTING 12 HOUR 13 Desirable <150 [...] and in selective patients <6.0%.Please refer to [place] [employer] Diabetic care guidelines for further [...] (or dialysis) 20 FASTING 10 HOUR 21 Because ethnic data is not always readily [...] 15-29 5 Kidney failure <15 (or dialysis) 22 Desirable <150 Borderline high 150-199 High 200-499 Very High >500 23 Desirable <200 Borderline high 200-239 High >239 24 Low <40 Desirable: 40-60 High: >60 25 Desirable: <100 mg/dL Near Optimal: 100-129 mg/dL Borderline High: 130-159 mg/dL High: 160-189 mg/dL Very High: >189 mg/dL 26 SEE RESULT BELOW Name: CHENMARILUZ Plata Jono : [address]: Heriberto Guillory III, MD Acct: [id number] Unit: [id number] AGE: 45 Location: [facility] Re03/21/15 SEX: F Status: REG REF SPEC: [id number] EFE: 03/21/15-[address]: Heriberto Guillory III, MD REQ: [id number] RECD: 03/21/158888 STATUS: COMP _ SOURCE: THROAT SPDESC: ORDERED: Throat Culture Procedure Result Verified Site Throat Culture Final 03/23/15- 0846 ML Organism 1 NORMAL JOAN Quantity 3+ * ML - MAIN LAB ([facility]) . END OF REPORT * ML=Testing performed at Main Lab DEPARTMENT OF PATHOLOGY, [address] [place] [address] Renny Yun M.D. Director [facility] # [id number] 27 Potassium reference range changed effective 08/08/14 [...] 0.03 ng/mL Not supportive of diagnosis of OH 0.03 - 0.50 ng/mL Indeterminate: suggest serial studies if clinically indicated. Greater than 0.5 ng/mL Consistent with diagnosis of OH 30 RUN DATE: 06/05/14 [facility] LAB LIVE PAGE 1 RUN TIME: [address] [place] [address] Specimen Inquiry Name: MARILUZ CHEN : [address]: Alexander Retana MD Acct: [id number] Unit: [id number] AGE: 44 Location: ED Re06/03/14 SEX: F Status: DEP ER SPEC: [id number] EFE: 06/03/[address]: Candy COTA REQ: [id number] RECD: 06/03/14 STATUS: VALENTINE [facility] DR: Rina Retana MD _ SOURCE: ARM RIGHT SPDESC: ORDERED: Culture Stain Procedure Result Verified Site Wound/Misc Gram Stain Final 06/04/14- 0747 ML 4+ Polys 2+ Gram Positive Cocci Wound/Misc Culture Final 06/05/14- 1100 ML No Growth Day 2 END OF REPORT * ML=Testing performed at Main Lab DEPARTMENT OF PATHOLOGY, [facility] [address] [place], [place] [address] Renny Yun M.D. Director [facility] # [id number] 31 RUN DATE: 04/08/14 [facility] LAB LIVE PAGE 1 RUN TIME: [address] [place] [address] Specimen Inquiry Name: MARILUZ CHEN : [address]: Jose Roberto Rogers MD Acct: [id number] Unit: [id number] AGE: 44 Location: THYROID Re04/08/14 SEX: F Status: REG REF SPEC: [id number] EFE: 04/08/14-[address]: Heriberto Mclain MD REQ: [id number] RECD: 04/08/14-1214 STATUS: MAXIMO DUNCAN DR: Jose Roberto Acevedobull REGULATORY COMPLIANCE COORDINATOR _ ORDERED: FN ASP DEEP, FNA IMMEDIATE [...] performed at Main Lab DEPARTMENT OF PATHOLOGY, [facility] [address] [place], [place] [address] Renny Yun M.D. Director [facility] # [id number] RUN DATE: 04/08/14 [facility] LAB LIVE PAGE 2 RUN TIME: 1054 [facility] [place], [place] [address] Specimen Inquiry Patient: MARILUZ CHEN [id number] (Continued) CLINICAL HISTORY (Continued) CLINICAL HISTORY 4.0cm right mid pole IMMEDIATE INTERPRETATION Pass 1-adequate GROSS DESCRIPTION 4 - alcohol fixed slide(s) 1 - passes Needle rinse in CytoLyt solution for thin layer non-child protective investigator test. Signed (signature on file) Kim Negrete MD 12/18 1054 END OF REPORT * ML=Testing performed at Main Lab DEPARTMENT OF PATHOLOGY, [facility] [address] [place], [place] [address] Renny Yun M.D. Director [facility] # [id number] 32 RUN DATE: 03/02/14 [facility] LAB LIVE PAGE 1 RUN TIME: 1108 [facility] [address] [place], [place] [address] Specimen Inquiry Name: MARILUZ CHEN : [address]: Rina Zhu REGULATORY COMPLIANCE COORDINATOR Acct: [id number] Unit: [id number] AGE: 44 Location: [facility] Re02/26/14 SEX: F Status: REG REF SPEC: [id number] EFE: 02/26/14-[address]: Rina Zhu NP REQ: [id number] RECD: 02/26/14-1849 STATUS: SOUT _ ORDERED: IMAGE ANALYSIS, HPV/Thin Prep FINAL DIAGNOSIS Negative for Intraepithelial lesion or Malignancy COMMENTS: Specimen sent to [facility] in [place], [place] on 03/02/14 by [id number] at 1058. Results will be reported separately. [...] was evaluated with the assistance of the Trevenap Test Imaging System. Due to cytologic findings at the search engine optimization manager microscope, comprehensive manual rescreening by a Oil Dipper may be required. The Pap Smear is [...] performed at Main Lab DEPARTMENT OF PATHOLOGY, [facility] [address] [place], [place] [address] RUN DATE: 03/02/14 [facility] LAB LIVE PAGE 1 RUN TIME: [address] [place] [id number] Specimen Inquiry Patient: ARIELLE CHENDeniz De La Cruz [id number] (Continued) Renny Yun M.D. Director [facility] # [id number] RESULT: Ectocervical/Endocervical 34 The following Other High Risk HPV types were not detected: 31, 33, 35, 39, 45, 51, 52, 56, 58, 59, 66, and 68 Test Performed by: [place] [id number] [employer] Spanish Teacher: Rudy Walden III, M.D. 35 FASTING 36 FASTING 37 FASTING 38 Because ethnic data is not always readily [...] 15-29 5 Kidney failure <15 (or dialysis) 39 Desirable <150 Borderline high 150-199 High 200-499 Very High >500 40 Desirable <200 Borderline high 200-239 High >239 41 Low <40 Desirable: 40-60 High: >60 42 Desirable <100 Near Optimal 100-129 Borderline high 130-159 High 160-189 Very High >189 Procedures Date Code Description Status 12/24/2017 [id number] Mammogram Completed 04/23/2017 19622 Stress Test Completed 04/23/2017 70127 Myocardial Perfusion Imaging Tomographic (Spect) Completed Multiple Studies 04/02/2017 26188 Stress Test Completed 03/26/2017 73283 Inject/Drain Joint/Bursa Major W/O US Completed 02/28/2017 48621 Inject/Drain Joint/Bursa Intermediate W/O US Completed 02/28/2017 94330 Inject/Drain Joint/Bursa Intermediate W/O US Completed 10/17/2016 [id number] Mammogram Completed 08/09/2016 [id number] Colonoscopy Completed 12/05/2015 74050 Polysomnography Sleep Staging 4+ Parameters Completed 11/28/2015 [id number] Mammogram Completed 09/08/2013 [id number] Colonoscopy Completed 06/18/2013 39827 Nerve Conduction 07-08 Studies Completed 06/18/2013 16568 Nerve Conduction 09-10 Studies Completed 08/19/2012 99633 EKG Tracing & Interpretation Completed 08/01/2011 85075 ECHO Stress Test Incl Perf Contiuous ekg Monitoring Completed W/Phys Superv 07/25/2011 81292 ECHO Transthoracic, Real-Time 2D With Doppler And Color Completed Flow 07/11/2011 43773 EKG Tracing & Interpretation Completed Encounters Type Date Location Provider Dx Diagnosis Office Visit 09/26/2018 Orthopedic Manolo Souleymane, M25.561 Pain in right 1:00p Services Of Kristen CANNON knee M25.461 Effusion, right knee M22.2x1 Patellofemoral disorders, right knee Office Visit 01/14/2018 11:40a [facility] Internal Heriberto Martinez R92.8 Oth abn and Gaston Guillory M.D. inconclusive Annie findings on dx imaging of breast Office Visit 12/04/2017 11:50a [facility] Internal [place] F43.22 Adjustment Gaston Zavaleta M.D. disorder with [place] anxiety N60.09 Solitary cyst of unspecified breast I10 Essential (primary) hypertension R73.01 Impaired fasting glucose E04.2 Nontoxic multinodular goiter Office Visit 08/26/2017 7:30a [facility] Internal [place] Zavaleta, M25.552 Pain in left Medicine - M.D. hip [place] M79.671 Pain in right foot E04.2 Nontoxic multinodular goiter N60.09 Solitary cyst of unspecified breast Z23 Encounter for immunization Office Visit 07/15/2017 11:15a Orthopedic Mimi Boyd, S63.652D Sprain of MCP Services Of M.D. joint of C.M.A. right middle finger, subs Office Visit 06/27/2017 1:00p Orthopedic Mimi Boyd, M79.641 Pain in right Services Of M.D. hand C.M.A. M79.644 Pain in right finger(s) Office Visit 06/04/2017 2:00p [facility] Internal [place] Zavaleta, M79.641 Pain in right Medicine - M.D. hand [place] M54.5 Low back pain R35.8 Other polyuria Office Visit 05/09/2017 10:40a [facility] Internal Loan Rocha, R73.01 Impaired Medicine - N.P. fasting glucose [place] R35.0 Frequency of micturition R31.9 Hematuria, unspecified Office Visit 04/24/2017 12:10p [facility] Internal [place] S16.1xxA Strain of Gaston Zavaleta [...] osteoarthritis, right shoulder Office Visit 03/21/2017 11:50a [facility] Internal [place] Waqar, R73.01 Impaired Medicine Robbie Tran fasting glucose [place] N64.89 Other specified disorders of breast M25.571 Pain in right ankle and joints of right foot E78.1 Pure hyperglyceridemia D25.9 Leiomyoma of uterus, unspecified Office Visit 03/13/2017 11:30a [facility] Internal [place] R07.9 Chest pain, Gaston Zavaleta [...] osteoarthritis, right shoulder Office Visit 02/15/2017 2:20p [facility] Internal [place] J02.9 Acute pharyngitis , Gaston Morales M.D. unspecified [address] J20.9 Acute bronchitis, unspecified Office Visit 01/22/2017 10:10a [facility] Internal [place] M25.511 Pain in right Gaston Zavaleta M.D. shoulder [place] Office Visit 09/12/2016 1:00p [facility] Internal [place] Z00.01 Encounter for Gaston Zavaleta M.D. general adult [place] medical exam w abnormal findings Z12.4 Encounter for screening for malignant neoplasm of cervix E07.89 Other specified disorders of thyroid E78.1 Pure hyperglyceridemia N60.09 Solitary cyst of unspecified breast Z12.31 Encntr screen mammogram for malignant neoplasm of breast D25.9 Leiomyoma of uterus, unspecified B37.3 Candidiasis of vulva and vagina Office Visit 07/12/2016 10:10a [facility] Sg Butt E55.9 Vitamin D Gaston Zavaleta M.D. deficiency, [place] unspecified R73.01 Impaired fasting glucose F32.89 Other specified depressive episodes Z23 Encounter for immunization Office Visit 06/20/2016 9:50a [facility] Internal [place] Zavaleta, R73.01 Impaired Gaston Avalos M.D. fasting glucose [place] Z86.010 Personal history of colonic polyps E55.9 Vitamin D deficiency, unspecified E66.9 Obesity, unspecified F32.8 Other depressive episodes Office Visit 02/20/2016 Orthopedic Pauline M17.12 Unilateral primary 10:00a Services Of Chelsea Wolf osteoarthritis, left C.M.A. knee M25.562 Pain in left knee M25.462 Effusion, left knee Office Visit 01/03/2016 9:30a Pulmonology And Erinn G47.33 Obstructive sleep Sleep Services Of MD Denise apnea (adult) [place] (pediatric) J44.9 Chronic obstructive pulmonary disease, unspecified E66.09 Other obesity due to excess calories Office Visit 12/20/2015 9:50a [facility] Internal [place] Z86.010 Personal Gaston Zavaleta M.D. history of [place] colonic polyps M25.462 Effusion, left knee L72.3 Sebaceous cyst Office Visit 12/13/2015 9:50a [facility] Internal [place] Zavaleta, N60.01 Solitary cyst Gaston Avalos M.D. of right breast [place] E07.89 Other specified disorders of thyroid E66.09 Other obesity due to excess calories Office Visit 11/10/2015 8:45a Pulmonology And Erinn G47.9 Sleep disorder, Sleep Services [facility] MD Denise unspecified [place] E66.09 Other obesity due to excess calories J44.9 Chronic obstructive pulmonary disease, unspecified Office Visit 07/26/2015 9:50a [facility] Internal [place] M70.62 Trochanteric Gaston Zavaleta M.D. bursitis, left hip [place] R80.9 Proteinuria, unspecified R94.6 Abnormal results of thyroid function studies N63 Unspecified lump in breast G47.30 Sleep apnea, unspecified E55.9 Vitamin D deficiency, unspecified Office Visit 06/09/2015 9:50a [facility] Internal [place] Zavaleta, 790.21 Impaired Medicine - MLloyd Fasting Glucose [place] 268.9 Vitamin D Deficiency Unspec 724.5 Backache Unspec 300.00 Anxiety State Unspec 729.5 Pain In Limb Office Visit 03/21/2015 11:40a [facility] Internal Heriberto Guillory, 784.1 Throat Pain Gaston Avalos M.D. [place] 496 COPD Airway Obstruction Chronic Not Class Elsewhere Office Visit 03/09/2015 3:00p [facility] Sg [place] 49Pema COPD Airway Gaston Guillory M.D. Obstruction [place] Chronic Not Class Elsewhere 401.1 Hypertension Benign 241.9 Goiter Nontoxic Nodular Unspec 784.0 Headache Office Visit 11/25/2014 4:00p [facility] Sg [place] 465.9 URI Upper Gaston Guillory M.D. Respiratory [place] Infections Acute Unspec Sites 496 COPD Airway Obstruction Chronic Not Class Elsewhere 791.0 Proteinuria 780.57 Unspecified Sleep Apnea 401.0 Hypertension Malignant Office Visit 08/19/2014 10:40a [facility] Internal Rina Zhu, 380.4 Impacted Medicine - N.P. Cerumen [place] 461.8 Sinusitis Acute Other Office Visit 04/13/2014 2:00p [facility] Internal Rina Zhu, 790.21 Impaired Medicine - N.P. Fasting Glucose [place] 241.9 Goiter Nontoxic Nodular Unspec 278.00 Obesity Unspec Office Visit 02/26/2014 3:00p [facility] Internal Rina Audra, 241.9 Goiter Nontoxic Medicine - N.P. Nodular Unspec [place] V76.19 Screening Breast Exam Malignant Neoplasms Other V76.2 Screening Malignant Neoplasm Cervix V72.31 Routine Synthetic Staple Extruder Examination V03.82 Streptococcus Pneumoniae Vaccination Spec Other Office Visit 01/05/2014 3:00p [facility] Internal Rina Audra, V70.0 Examination Medicine - N.P. [facility] [place] Routine AT [facility] Care Facility 564.1 Irritable Bowel Syndrome V79.0 Screening Depression V77.91 Screening For Lipoid Disorders 362.10 Retinopathy Background Unspec 241.9 Goiter Nontoxic Nodular Unspec 786.03 Apnea 401.0 Hypertension Malignant 380.4 Impacted Cerumen 530.81 Esophageal Reflux 300.00 Anxiety State Unspec 496 COPD Airway Obstruction Chronic Not Class Elsewhere Office Visit 08/19/2012 Coolin Qutaybeh S. 401.1 Hypertension 9:40a Ruth Main M.D. Benign 794.31 Electrocardiogram (ECG) (EKG) Abnormal 272.4 Hyperlipidemia Other Unspec 786.50 Pain Chest Unspec Office Visit 09/14/2011 Coolin Qutaybeh S. 401.1 Hypertension 10:00a Ruth Main M.D. Benign 794.31 Electrocardiogram (ECG) (EKG) Abnormal 272.4 Hyperlipidemia Other Unspec Office Visit 08/01/2011 Coolin Qutaybeh S. 401.0 Hypertension 11:30a Ruth Main M.D. Malignant 794.31 Electrocardiogram (ECG) (EKG) Abnormal 786.50 Pain Chest Unspec 786.05 Shortness Of Breath Office Visit 07/25/2011 9:15a [facility] ECHO 786.50 Pain Chest Schedule Unspec 786.05 Shortness Of Breath 401.0 Hypertension Malignant Office 07/11/2011 Coolin Qutaybeh S. 794.31 Electrocardiogram Visit 2:40p Ruth Main M.D. (ECG) (EKG) Abnormal 786.50 Pain Chest Unspec 786.05 Shortness Of Breath 272.4 Hyperlipidemia Other Unspec 401.1 Hypertension Benign Plan of Treatment 11/11/2018 - Giovana Benítez, MDM22.2x1 Patellofemoral disorders, right kneeNew Therapy:Physical YfcgbobX77.561 Pain in right kneeNew Xrays:MRI Knee Right W/O, Ordered: 11/11/18Follow up:Follow up: after MRIM25.562 Pain in left kneeNew Xrays:Knee 3 Views LT, Ordered: 11/11/18M22.2x2 Patellofemoral disorders, left kneeNew Therapy:Physical Therapy
[2018-11-11] MEDS ORDERED: Ibuprofen TAB* 600 MG PO ONE (20:19)
--- NOTE | 2018-11-11 22:07 | ED ---
Lower Extremity - HPI Summary HPI Summary: Patient complains of left knee pain status post fall. Denies any other pain injury or symptoms. Patient states she cannot ambulate. - History of Current Complaint Chief Complaint: EDExtremityLower Stated Complaint: FALL Time Seen by Provider: 11/11/18 19:44 Hx Obtained From: Patient Hx Last Menstrual Period: 08/03/18 Mechanism Of Injury: Fall From A Standing Position Onset of Pain: Immediate Onset/Duration: Hours Severity Initially: Moderate Severity Currently: Moderate Pain Intensity: 7 Pain Scale Used: 0-10 Numeric Timing: Constant Location: Is Discrete @ Character Of Pain: Aching, Throbbing Associated Signs And Symptoms: Positive: Knee Pain. Negative: Swelling, Redness , Bruising, Fever Aggravating Factor(s): Movement Alleviating Factor(s): Rest Able to Bear Weight: No - Allergies/Home Medications Allergies/Adverse Reactions: Allergies Allergy/AdvReac Type Severity Reaction Status Date / Time No Known Allergies Allergy Verified 10/10/18 21:32 PMH/Surg Hx/FS Hx/Imm Hx Endocrine/Hematology History: Reports: Hx Diabetes - "pre-diabetes", Hx Thyroid Disease - issues years ago - has not needed meds in years Denies: Hx Anemia Cardiovascular History: Reports: Hx Hypertension - metoprolol and losartan Denies: Hx Congestive Heart Failure, Hx Pacemaker/ICD Respiratory History: Reports: Hx Asthma - ON O2 AT HOME, Hx Chronic Obstructive Pulmonary Disease (COPD), Other Respiratory Problems/Disorders - HX. OF PNEUMONIA, COPD GI History: Denies: Hx Jaundice, Hx Ulcer History: Denies: Hx Renal Disease Sensory History: Denies: Hx Hearing Aid Opthamlomology History: Denies: Hx Legally Blind EENT History: Denies: Hx Deafness Neurological History: Denies: Hx Dementia Psychiatric History: Denies: Hx Anxiety - pt denies, Hx Panic Disorder - Surgical History Surgery Procedure, Year, and Place: L BREAST LUMPECTOMY 2008 BENIGN. TUBAL LIGATION. C SECTION X 3. THYROID FNA BENIGN - Immunization History Date of Tetanus Vaccine: Unknown Date of Influenza Vaccine: None Infectious Disease History: No Infectious Disease History: Denies: Hx Hepatitis, Hx Human Immunodeficiency Virus (HIV), History Other Infectious Disease, Traveled Outside the [place] in Last 30 Days - Family History Known Family History: Positive: Other Family History: mom w/ lung ca - Social History Alcohol Use: Occasionally Hx Substance Use: No Substance Use Type: Reports: None Hx Tobacco Use: Yes Smoking Status (MU): Former Smoker Have You Smoked in the Last Year: No Review of Systems Constitutional: Negative Eyes: Negative ENT: Negative Cardiovascular: Negative Respiratory: Negative Gastrointestinal: Negative Genitourinary: Negative Musculoskeletal: Other Skin: Other Neurological: Negative Psychological: Normal All Other Systems Reviewed And Are Negative: Yes Physical Exam - Summary Physical Exam Summary: No swelling, deformity, erythema, ecchymosis, extra warmth noted to left knee. Patient has 90 of flexion and extension with some pain. Tenderness to palpation along posterior and lateral knee. Nontender. Plantar flexion and dorsiflexion intact. PMS intact distally. Triage Information Reviewed: Yes Vital Signs On Initial Exam: Initial Vitals Temp Pulse Resp BP Pulse Ox 98.0 F 90 16 147/83 100 11/11/18 19:18 11/11/18 19:18 11/11/18 19:18 11/11/18 19:18 11/11/18 19:18 Vital Signs Reviewed: Yes Appearance: Positive: Well-Appearing Skin: Positive: Warm Head/Face: Positive: Normal Head/Face Inspection Eyes: Positive: Normal Neck: Positive: Supple Respiratory/Lung Sounds: Positive: Clear to Auscultation Cardiovascular: Positive: Normal Abdomen Description: Positive: Nontender Musculoskeletal: Positive: Normal Neurological: Positive: Normal Psychiatric: Positive: Normal AVPU Assessment: Alert - Flom Coma Scale Best Eye Response: 4 - Spontaneous Best Motor Response: 6 - Obeys Commands Best Verbal Response: 5 - Oriented Coma Scale Total: 15 Diagnostics - Vital Signs Vital Signs Temp Pulse Resp BP Pulse Ox 11/11/18 19:18 98.0 F 90 16 147/83 100 - Laboratory Lab Statement: Any lab studies that have been ordered have been reviewed, and results considered in the medical decision making process. Lower Extremity Course/Dx - Course Course Of Treatment: Patient complains of left knee pain status post fall. Denies any other pain injury or symptoms. Patient states she cannot ambulate. Physical exam:No swelling, deformity, erythema, ecchymosis, extra warmth noted to left knee. Patient has 90 of flexion and extension with some pain. Tenderness to palpation along posterior and lateral knee. Nontender. Plantar flexion and dorsiflexion intact. PMS intact distally. Vital signs within normal limits. X-ray unremarkable. Patient has existing rt knee complaints for which she is receiving physical therapy. Patient has been using left leg to carry most of her weight while ambulating. Knee immobilizer was offered to support left leg with new injury due to history of right leg injury. - Diagnoses Provider Diagnoses: Knee pain, acute Discharge - Sign-Out/Discharge Documenting (check all that apply): Patient Departure Patient Received Moderate/Deep Sedation with Procedure: No - Discharge Plan Condition: Stable Disposition: HOME Prescriptions: HYDROcodone/ACETAMIN 5-325 MG* [[place] 5-325 TAB*] 1 tab PO TID 2 Days #4 tab MDD 3 tabs Patient Education Materials: Knee Pain (ED) Referrals: Mary Grace Palomares MD [Primary Care Provider] - Rodo Laird MD [Medical Doctor] - Additional Instructions: Rest, ice, elevation and ibuprofen for knee pain. If symptoms persist follow- up with orthopedics Dr. Gaxiola for further evaluation. Return to the ED for any new or worsening symptoms. - Billing Disposition and Condition Condition: STABLE Disposition: Home
[2018-11-11 22:47] VITALS: BP 147/88
== END 2018-11-11 22:47 | disposition home or self-care (01) ==
LOC: ED 19:09
DX: M25.562 Pain in left knee (principal); Z87.891 Personal history of nicotine dependence; R73.03 Prediabetes; I10 Essential (primary) hypertension; Z90.12 Acquired absence of left breast and nipple
CPT/HCPCS: 99282; A9270-GY

== ENCOUNTER 2018-11-13 08:07 | Emergency (ER) | payer OTHER ==
--- NOTE | 2018-11-13 08:37 | ED ---
Dizziness - HPI Summary HPI Summary: A 48 y/o female brought in by [facility] ambulance accompanied by family presents to [facility] with a chief complaint of dizziness the morning of 11/13/18. She describes the dizziness as room spinning. At triage the patient rated her symptom as a 0/10 in severity. She also c/o diaphoresis, lightheadedness, feeling tachycardic, nausea and feeling scared. She denies vomiting, ear ache, nasal congestion or headache. The patient reports that she fell and hurt both of her knees recently and took a new pain medication at 22:30 11/12/18. She claims that she did not hit her head when she fell and denies any neck pain. Sitting or standing up worsens her symptoms while laying down alleviates her symptoms. She reports that she did not take her HTN medication yet today and that she has head "really high blood pressure" since 11/11/18. The patient's blood pressure at triage was 160/105. - History Of Current Complaint Chief Complaint: EDDizziness Stated Complaint: DIZZINESS Hx Obtained From: Patient, Family/Glaze Carrier Onset/Duration: Still Present Timing: Constant Severity Initially: Moderate Severity Currently: Mild Character: Head Spinning Aggravating Factor(s): Other - sitting up or standing up Alleviating Factor(s): Lying Down Associated Signs And Symptoms: Positive: Nausea, Other: - feeling tachycardic, scared. Negative: Vomiting, Fever - Allergies/Home Medications Allergies/Adverse Reactions: Allergies Allergy/AdvReac Type Severity Reaction Status Date / Time No Known Allergies Allergy Verified 10/10/18 21:32 Home Medications: Home Medications Diclofenac Sodium 75 mg PO DAILY 11/13/18 [History Confirmed 11/13/18] PMH/Surg Hx/FS Hx/Imm Hx Endocrine/Hematology History: Reports: Hx Diabetes - "pre-diabetes", Hx Thyroid Disease - issues years ago - has not needed meds in years Denies: Hx Anemia Cardiovascular History: Reports: Hx Hypertension - metoprolol and losartan Denies: Hx Congestive Heart Failure, Hx Pacemaker/ICD Respiratory History: Reports: Hx Asthma - ON O2 AT HOME, Hx Chronic Obstructive Pulmonary Disease (COPD), Other Respiratory Problems/Disorders - HX. OF PNEUMONIA, COPD GI History: Denies: Hx Jaundice, Hx Ulcer History: Denies: Hx Renal Disease Sensory History: Denies: Hx Legally Blind, Hx Deafness, Hx Hearing Aid Opthamlomology History: Denies: Hx Legally Blind Neurological History: Denies: Hx Dementia Psychiatric History: Denies: Hx Anxiety - pt denies, Hx Panic Disorder - Surgical History Surgery Procedure, Year, and Place: L BREAST LUMPECTOMY 2008 BENIGN. TUBAL LIGATION. C SECTION X 3. THYROID FNA BENIGN - Immunization History Date of Tetanus Vaccine: Unknown Date of Influenza Vaccine: None Infectious Disease History: No Infectious Disease History: Denies: Hx Hepatitis, Hx Human Immunodeficiency Virus (HIV), History Other Infectious Disease, Traveled Outside the [place] in Last 30 Days - Family History Known Family History: Positive: Other - lung cancer mother Family History: mom w/ lung ca - Social History Alcohol Use: Occasionally Hx Substance Use: No Substance Use Type: Reports: None Hx Tobacco Use: Yes Smoking Status (MU): Former Smoker Have You Smoked in the Last Year: No Review of Systems Positive: Skin Diaphoresis. Negative: Fever ENT: Negative - nasal congestion, neck pain Negative: Ear Ache Positive: Other - positive: feeling tachycardic Positive: Nausea. Negative: Vomiting Positive: Arthralgia - knee pain from fall [employer] Neurological: Other - positive: dizziness, lightheadedness Negative: Headache All Other Systems Reviewed And Are Negative: Yes Physical Exam - Summary Physical Exam Summary: Appearance: The patient is well-nourished in no acute distress and in no acute pain. Skin: The skin is warm and dry and skin color reflects adequate perfusion. HEENT: The head is normocephalic and atraumatic. The pupils are equal and reactive. The conjunctivae are clear and without drainage. No nystagmus. Nares are patent and without drainage. Mouth reveals moist mucous membranes and the throat is without erythema and exudate. The external ears are intact. The ear canals are patent and without drainage. The tympanic membranes are intact. Neck: The neck is supple with full range of motion and non-tender. There are no carotid bruits. There is no neck vein distension. Respiratory: Chest is non-tender. Lungs are clear to auscultation and breath sounds are symmetrical and equal. Cardiovascular: Heart is regular rate and rhythm. There is no murmur or rub auscultated. There is no peripheral edema and pulses are symmetrical and equal. Abdomen: The abdomen is soft and non-tender. There are normal bowel sounds heard in all four quadrants and there is no organomegaly palpated. Musculoskeletal: There is no back tenderness noted. Extremities are non-tender with full range of motion. There is good capillary refill. There is no peripheral edema or calf tenderness elicited. Neurological: Patient is alert and oriented to person, place and time. The patient has symmetrical motor strength in all four extremities. Cranial nerves are grossly intact. Deep tendon reflexes are symmetrical and equal in all four extremities. Psychiatric: The patient has an appropriate affect and does not exhibit any anxiety or depression. Triage Information Reviewed: Yes Vital Signs On Initial Exam: Initial Vitals Temp Pulse Resp BP Pulse Ox 97.4 F 114 19 160/105 96 11/13/18 08:11 11/13/18 08:11 11/13/18 08:11 11/13/18 08:11 11/13/18 08:11 Vital Signs Reviewed: Yes - [place] Coma Scale Best Eye Response: 4 - Spontaneous Best Motor Response: 6 - Obeys Commands Best Verbal Response: 5 - Oriented Coma Scale Total: 15 Diagnostics - Vital Signs Vital Signs Temp Pulse Resp BP Pulse Ox 11/13/18 08:20 18 11/13/18 08:11 97.4 F 114 19 160/105 96 - Laboratory Result Diagrams: 11/13/18 08:45 11/13/18 08:45 Lab Statement: Any lab studies that have been ordered have been reviewed, and results considered in the medical decision making process. - Radiology CXR Radiology Interpretation Completed By: Radiologist Summary of Radiographic Findings: Stigmata of obstructive lung disease. No acute pulmonary or cardiac process evident. ED physician has reviewed this imaging report. - CT Brain CT Interpretation Completed By: Radiologist Summary of CT Findings: Normal CT of the brain. ED physician has reviewed this imaging report. - EKG 08:16 Cardiac Rate: NL - 80 bpm EKG Rhythm: Sinus Rhythm ST Segment: Normal Ectopy: None Summary of EKG Findings: Normal sinus rhythm at 80 bpm, normal ST, no ectopy, no STEMI Re-Evaluation - Re-Evaluation First Eval Re-Evaluation Time: 10:05 Change: Unchanged Comment: Patient is walking with assistance from nurse reporting lightheadedness Second Eval Re-Evaluation Time: 11:13 Change: Improved Comment: Patient reports feeling better Dizzy Course/Dx - Course Course Of Treatment: Ms. Uribe presented complaining of intermittent episodes of dizziness encompassing the room spinning and accompanied by nausea and diaphoresis. It occurred when she was going from lying to sitting or lying to standing. She was nontoxic in appearance with stable vital signs on arrival. Her blood pressure was quite high when she was placed in the room and she admitted to not taking her medications this morning because of her symptoms. Her BUN to creatinine ratio was quite elevated and she was given IV fluids. She is also given some meclizine and improved quite a bit with the above treatment. She was able to ambulate about and was no longer symptomatic. She was given her normal blood pressure medicines and her blood pressure normalized. She had horizontal nystagmus when she presented was too symptomatic at that point to do a [place]. Because of the intermittent nature of her symptoms and her clinical course I felt this was not a central vertigo but peripheral and recommended discharge and follow-up with her PCP. - Diagnoses Provider Diagnoses: Hypertension Discharge - Sign-Out/Discharge Documenting (check all that apply): Patient Departure - DC Patient Received Moderate/Deep Sedation with Procedure: No - Discharge Plan Condition: Stable Disposition: HOME Patient Education Materials: Hypertension (ED) Referrals: Mary Grace Palomares MD [Primary Care Provider] - (This week) Additional Instructions: Follow up with your PCP. Return to the ED if you experience any new or worsening symptoms. - Billing Disposition and Condition Condition: STABLE Disposition: Home - Attestation Statements Document Initiated by Иван: Yes Documenting Scribe: Claudio Lopez Provider For Whom Иван is Documenting (Include Credential): Christ Krause MD Scribe Attestation: I, Claudio Lopez, scribed for Christ Krause MD on 11/13/18 at 1651. Scribe Documentation Reviewed: Yes Provider Attestation: The documentation as recorded by the Claudio olivares accurately reflects the service I personally performed and the decisions made by me, Christ Krause MD Status of Scribe Document: Viewed
[2018-11-13] MEDS ORDERED: NS 0.9% 1000 ML** 1,000 ML IV ONE ×2 (08:44→09:51)
[2018-11-13 08:53] LABS: ABS Basophils 0.1 10^3/ul (0-0.2); ABS Eosinophils 0.3 10^3/ul (0-0.6); ABS Lymphocytes 2.5 10^3/ul (1.0-4.8); ABS Monocytes 0.7 10^3/ul (0-0.8); ABS Neutrophils 5.3 10^3/ul (1.5-7.7); ABS Nucleated RBC 0 10^3/ul; Eosinophil % 3.3 %; Hematocrit 38 % (35-47); Hemoglobin 13.1 g/dl (12.0-16.0); Lymphocyte % 27.7 %; Mean Corpuscular HGB Conc 34 g/dl (31-36); Mean Corpuscular Hemoglobin 29 pg (27-31); Mean Corpuscular Volume 83 fL (80-97); Mean Platelet Volume 7.7 fL (7.4-10.4); Nucleated Red Blood Cells % 0; Platelet Count 269 10^3/ul (150-450); Red Blood Count 4.61 10^6/ul (4.00-5.40); Red Cell Distribution Width 14 % (10.5-15); White Blood Count 8.9 10^3/ul (3.5-10.8)
[2018-11-13 09:10] LABS: Albumin 3.7 g/dL (3.2-5.2); Albumin/Globulin Ratio 1.4 (1-3); BUN/Creatinine Ratio 36.4 (8-20); EGFR African American 184.7 (>60); EGFR Non-African American 152.6 (>60); Globulin 2.6 g/dL (2-4); Magnesium 1.7 mg/dL (1.9-2.7); Potassium 3.7 mmol/L (3.5-5.0); Total Bilirubin 0.4 mg/dL (0.2-1.0); Total Protein 6.3 g/dL (6.4-8.9)
[2018-11-13 09:25] LABS: INR 0.88 (0.77-1.02)
[2018-11-13 09:46] LABS: TSH (Thyroid Stimulating Horm) 0.47 mcIU/mL (0.34-5.60)
[2018-11-13] MEDS ORDERED: Meclizine TAB* 12.5 MG PO ONE (09:51)
[2018-11-13 11:02] LABS: Urine Appearance Cloudy; Urine Bacteria Absent (Absent); Urine Bilirubin Negative (Negative); Urine Blood Negative (Negative); Urine Color Yellow; Urine Glucose Negative (Negative); Urine Ketones Negative (Negative); Urine Nitrite Negative (Negative); Urine Protein 1+(30 mg/dL) (Negative); Urine Red Blood Cell Absent (Absent); Urine Specific Gravity 1.014 (1.010-1.030); Urine Squamous Epithelial Cell Present (Absent); Urine Urobilinogen Negative (Negative); Urine White Blood Cell Absent (Absent)
[2018-11-13] MEDS ORDERED: Metoprolol Tartrate TAB* 25 MG PO ONE (11:15)
[2018-11-13] MEDS ORDERED: Losartan TAB* 25 MG PO SCH (12:00)
[2018-11-13] MEDS ORDERED: Losartan/HCTZ 100/25 (NF) TAB PO SCH (12:00)
[2018-11-13] MEDS ORDERED: Hydrochlorothiazide TAB* 25 MG PO SCH (12:00)
[2018-11-13 13:24] VITALS: BP 151/92
== END 2018-11-13 13:23 | disposition home or self-care (01) ==
LOC: ED 08:07
DX: I10 Essential (primary) hypertension (principal); R73.03 Prediabetes; J44.9 Chronic obstructive pulmonary disease, unspecified; Z87.891 Personal history of nicotine dependence
CPT/HCPCS: 36415; 70450; 71046; 80053; 81003; 81015; 83605; 83735; 84443; 84484; 85025; 85610; 93005; 96360; 96361; 99283; A9270-GY

== ENCOUNTER 2019-08-28 22:54 | Emergency (ER) | payer OTHER ==
--- OUTSIDE RECORDS SUMMARY | 2019-08-28 23:31 | XMS REPORT | Summary of Care ---
:1970 Author Organization [facility] Address [address] [facility] [place] [address] Care Team Providers Name Role Phone Sharla Goyal Primary Care Provider Reason for Referral Refer to Department Only (Routine) Status Reason Specialty Diagnoses / Referred By Referred To Procedures Contact Contact Pending Review Physical Therapy Diagnoses Arthralgia of both lower legs Sharla Goyal ITHACA PHYSICAL MD THERAPY [address] [facility] [address] [address] [place] [address] Phone: Phone: [phone] Reason for Visit Reason Comments Follow Up 1 mo f/u to labs and weight loss Referral to PT for B/L knee pain Encounter Details Date Type Department Care Team Description 08/14/2019 Office Visit [place] [facility] Sharla Goyal MD Arthralgia of both lower legs (Primary Dx); Medicine [address] [facility] Abnormal TSH [address] [place] [address] [place] [address] [phone] Allergies No Known Allergiesdocumented as of this encounter (statuses as of 08/14/2019) Medications Medication Sig Dispensed Refills Start Date End Date Status metFORMIN (GLUCOPHAGE Take 1 Tab by 90 Tab 1 07/27/2019 Active XR) 500 MG Oral TABLET mouth DAILY. SR 24 HRIndications: Pre-diabetes metoprolol (LOPRESSOR) Take 1 Tab by 90 Tab 1 07/27/2019 Active 25 MG Oral Tab mouth DAILY. Losartan Potassium-HCTZ Take 1 Tab by 30 Tab 11 07/27/2019 Active 100-25 MG Oral Tab mouth DAILY. documented as of this encounter (statuses as of 08/14/2019) Active Problems Problem Noted Date S/P left knee arthroscopy 02/24/2019 Former smoker 01/29/2019 Acute medial meniscus tear, left, subsequent encounter 01/23/2019 Overview: Added automatically from request for surgery [id number] History of colonic polyps 03/09/2016 Family history of colon cancer 03/09/2016 env. allergies 03/29/2008 Hypertension Fibroadenoma Overview: right breast Pre-eclampsia Pap smear with atypical squamous cells of undetermined sign (ASC-US) Hyperthyroidism documented as of this encounter (statuses as of 08/14/2019) Immunizations Name Administration Dates Next Due Compazine (5mg) 05/10/2009 Influenza (IM) Preservative Free 06/23/2019, 11/14/2018 Rocephin (250 mg) 07/02/2008 Toradol (60 mg) 05/10/2009 documented as of this encounter Social History Tobacco Use Types Packs/Day Years Used Date Former Smoker Cigarettes 0.25 10 Quit: 08/07/2014 Smokeless Tobacco: Never Used Alcohol Use Drinks/Week oz/Week Comments No Sex Assigned at Date Recorded Not on file Job Start Date Occupation Industry Not on file Not on file Not on file Travel History Travel Start Travel End No recent travel history available. documented as of this encounter Last Filed Vital Signs Vital Sign Reading Time Taken Comments Blood Pressure 138/72 08/14/2019 11:35 AM EST Pulse 103 08/14/2019 11:35 AM EST Temperature - - Respiratory Rate - - Oxygen Saturation 97% 08/14/2019 11:35 AM EST Inhaled Oxygen Concentration - - Weight 100.7 kg (222 lb) 08/14/2019 11:35 AM EST Height 160 cm (5' 3") 08/14/2019 11:35 AM EST Body Mass Index 39.33 08/14/2019 11:35 AM EST documented in this encounter Patient Instructions Patient InstructionsSharla Goyal MD - 08/14/2019 11:20 AM ESTPatient Education Hyperthyroidism (Overactive Thyroid) and The Basics Written by the doctors and editors at [facility] What is hyperthyroidism?Hyperthyroidism is a condition that can make your heart beat fast, or make you feel shaky or anxious. It involves a gland in the neck called the thyroid (figure 1). This gland makes thyroid hormone, which controls how the body uses and stores energy. Hyperthyroidism is the term doctors use when the thyroid gland makes too much thyroid hormone. What if I have hyperthyroidism and want to get ?If you have hyperthyroidism and want to get , talk with your doctor or nurse before you start trying. Your doctor will treat your hyperthyroidism before you start trying to get . In general, hyperthyroidism in a person who is not can be treated with: Medicines Radioactive iodine This comes in a pill or liquid you swallow. It contains a small amount of radiation. Surgery to remove part or all of the thyroid gland You and your doctor will figure out which treatment is best for you. The decision depends on many factors. It's best to treat your hyperthyroidism before you try to get . If your hyperthyroidism is treated, you won't have to take medicines for it during . Women who are treated with radioactive iodine or surgery need to wait at least 6 months before trying to get . That way, their doctor will have enough time to check whether they are making enough thyroid hormone. Many people treated with radioactive iodine or surgery end up making too little thyroid hormone after treatment. This is a problem because women with too little thyroid hormone can have trouble getting . Also, if a woman has too little thyroid hormone, it can affect her baby's development early in . Women who don't make enough thyroid hormone will need treatment. What if I develop hyperthyroidism during ?If you develop hyperthyroidism during , your doctor will want to know what's causing it. The 2 most common causes are: A condition called Graves' disease (figure 2) A condition called hCG-mediated hyperthyroidism This is caused by a hormone called hCG (human chorionic gonadotropin). To figure out the cause, your doctor will do different blood tests. How might hyperthyroidism affect a ?Mild hyperthyroidism does not usually cause any problems for a woman or her baby. But severe hyperthyroidism can lead to problems if it isn't treated. These can include: Problems in the mother, such as heart problems or a condition called preeclampsia Problems with the , such as labor (when labor starts too early) or miscarriage(when a ends on its own before the baby can live outside the womb) How is hyperthyroidism that develops during treated? Treatment depends on what's causing the hyperthyroidism and how serious it is. hCG-mediated hyperthyroidism does not usually need treatment. This condition usually goes away on its own later on during . Mild hyperthyroidism from Graves' disease also does not usually need treatment. But your doctorwill monitor your thyroid hormone levels by doing blood tests on a regular basis. Severe hyperthyroidism from Graves' disease does need treatment. This usually involves medicines called thionamides. Your doctor will prescribe different ones at different times during your . That's because some are more likely to cause defects at certain times during . Will I need tests?Yes. During , you will have blood tests to check your thyroid hormone levels on a regular basis. Women with Graves' disease will also have tests to check whether their unborn baby has hyperthyroidism. Even though it is rare, unborn babies sometimes get hyperthyroidism. These tests usually include blood tests and an ultrasound. An ultrasound uses sound waves to create pictures of your baby. If your unborn baby has hyperthyroidism, the doctor can treat it by giving you medicine. After , women with Graves' disease will have blood tests to check their thyroid hormone levels every so often. Thats because the condition can come back later on. Can I have a normal vaginal delivery?Yes. Most women can have a normal vaginal delivery. Can I breastfeed my baby?Yes. Most women are able to breastfeed. But be sure to talk with your doctor so he or she can make sure your medicines are safe to take when . Will my baby be healthy?Chances are good that your baby will be healthy. In rare cases, though, babies born to women with Graves' disease can also have hyperthyroidism. To check for this condition, babies have blood tests done after . All topics are updated as new evidence becomes available and our peer review process is complete. This topic retrieved from [employer] on: Jun 30, 2019. Topic 72299 Version 5.0 Release: 27.4.3 - C27.271 2019[employer], [employer]. and/or its affiliates.All rights reserved. figure 1: Thyroid and parathyroid glands The thyroid is a butterfly-shaped gland in the middle of the neck. It sits just below the larynx (voice box). The thyroid makes two hormones, called T3 and T4, which control how the body uses and stores energy. The parathyroid glands are four small glands behind the thyroid. They make a hormone calledparathyroid hormone, which helps control the amount of calcium in the blood. Graphic 93213 Version 9.0 figure 2: Hyperthyroidism Hyperthyroidism is when the thyroid gland in the neck is "overactive" and makes too much thyroid hormone. This can cause a swelling in the neck, called a "goiter." If hyperthyroidism is caused by a medical condition called Graves disease, it can also make the eyes bulge out. Graphic 08506 Version 8.0 Consumer Information Use and Disclaimer This information is not specific medical advice and does not replace information you receive from your health care provider. This is only a brief summary of general information. It does NOT include allinformation about conditions, illnesses, injuries, tests, procedures, treatments, therapies, discharge instructions or life-style choices that may apply to you. You must talk with your health care provider for complete information about your health and treatment options. This information should not beused to decide whether or not to accept your health care provider's advice, instructions or recommendations. Only your health care provider has the knowledge and training to provide advice that is right for you.The use of [employer] content is governed by the [employer] Terms of Use. 2019 [employer]. All rights reserved. Copyright 2019[employer]. and/or its affiliates.All rights reserved. Weight loss is in the calories Most important technique - WRITE IT DOWN/ Make it conscious Etools - Free websites loseit [employer] [facility] fooducate Multiple effective diets- I favor the low carb diet- Cut out bread/ rice/ potatoes -etc. Eat meals with lean protein (meat/ fish/ chicken/ low fat cheese) and salad- Fruit is good but in moderation No fruit juice or sweetened sodas/ drinks- documented in this encounter Progress Notes Sharla Goyal MD - 08/14/2019 11:20 AM EST NAME:Mariluz Uribe 1970: 1970 ENC Date: 08/14/2019 CC: Chief Complaint Patient presents with Follow Up 1 mo f/u to labs and weight loss Referral to PT for B/L knee pain Mariluz Uribe is a 49-y.o. female Irregular menses - Has stopped bleeding now and has had a normal menses since - 2. TSH is slightly suppressed - h as history of following with Dr Rogers- He offiered her medication in the past- And she dropped out of care- She currently denies any tremor / weight loss Note of elevated hr - 3. Discussed weight loss - Current Outpatient Medications Medication Sig Losartan Potassium-HCTZ 100-25 MG Oral Tab Take 1 Tab by mouth DAILY. metFORMIN (GLUCOPHAGE XR) 500 MG Oral TABLET SR 24 HR Take 1 Tab by mouth DAILY. metoprolol (LOPRESSOR) 25 MG Oral Tab Take 1 Tab by mouth DAILY. No current facility-administered medications for this visit. Patient Active Problem List Diagnosis Date Noted S/P left knee arthroscopy 02/24/2019 Former smoker 01/29/2019 Acute medial meniscus tear, left, subsequent encounter 01/23/2019 Added automatically from request for surgery [id number] History of colonic polyps 03/09/2016 Family history of colon cancer 03/09/2016 Hypertension Fibroadenoma right breast Pre-eclampsia Pap smear with atypical squamous cells of undetermined sign (ASC-US) Hyperthyroidism env. allergies 03/29/2008 Family History Problem Relation Age of Onset Cancer Mother Lung Cancer Mother nonsmoker High Cholesterol Father Asthma Sister Ovarian Cancer Maternal Aunt dx in her 20s, not sure if alive Colon Cancer Maternal Grandfather elderly at diagnosis Arthritis No family history Anesth Problems No family history Clotting Disorder No family history Diabetes No family history Heart Disease No family history Hypertension No family history Kidney Disease No family history Thyroid Disease No family history No cardiopulmonary symptoms No upper or lower GI complaints No urinary tract symptoms. No bruising/ bleeding. No neurological complaints . No insomnia.+ . Social History Tobacco Use Smoking status: Former Smoker Packs/day: 0.25 Years: 10.00 Pack years: 2.50 Types: Cigarettes Last attempt to quit: 08/07/2014 Years since quittin.0 Smokeless tobacco: Never Used Substance Use Topics Alcohol use: No Drug use: No Results for orders placed or performed in visit on 08/13/19 FREE T4 Result Value Ref Range Free T4 1.1 0.8 - 2.2 NG/DL THYROID STIMULATING HORMONE Result Value Ref Range TSH 0.27 (L) 0.47 - 4.68 uIu/ml LDL, DIRECT Result Value Ref Range Direct Ldl-Cholesterol 111 (H) <100 MG/DL Narrative Normal Ranges: <100 mg/dl Optimal 100-129 mg/dl Near Optimal 130-159 mg/dl Borderline High 160-189 mg/dl High >189 mg/dl Very High COMPREHENSIVE METABOLIC PANEL Result Value Ref Range Sodium 134 134 - 145 mmol/L Potassium 3.8 3.5 - 5.1 mmol/L Chloride 100 98 - 107 mmol/L CO2 23 22 - 30 mmol/L Calcium 8.5 8.3 - 10.1 mg/dl Albumin 4.0 3.5 - 5.0 g/dl BUN 11 7 - 17 mg/dl Creatinine 0.4 (L) 0.7 - 1.2 mg/dl Glucose 115 (H) 70 - 99 mg/dl Total Protein 7.3 6.3 - 8.2 g/dl Total Bilirubin 0.5 0.0 - 1.1 MG/DL AST 44 15 - 46 U/L ALT 25 9 - 52 U/L Alkaline Phosphatase 56 40 - 150 U/L eGFR >60 See Interpretation Below ml/min/1.73ml Sq BUN/Creatinine Ratio 28 (H) 6 - 22 RATIO Anion Gap 11 3 - 11 mmol/L A/G Ratio 1.2 0.8 - 2.0 ratio OBJECTIVE: BP 138/72 | Pulse 103 | Ht 5' 3" (1.6 m) | Wt 222 lb (100.7 kg) | SpO2 97% | BMI 39.33 kg/m. Heent neg Neck no JVD, thyromegaly or bruit Lungs Clear CV rrr Abd soft, nontender, no organomegaly Ext no edema; no lesions; pulses intact Neuro: intellect intact ; motor including gait unremarkable A/P ICD-9-CM ICD-10-CM 1. Arthralgia of both lower legs 719.46 M25.561 REFER TO PHYSICAL THERAPY / REHAB M25.562 2. Abnormal TSH 790.6 R79.89 T3, FREE, [facility] T3, FREE, TRACER DIALYSIS NM THYROID IMAGING FREE T4 Patient Instructions Patient Education Hyperthyroidism (Overactive Thyroid) and The Basics Written by the doctors and editors at [employer] What is hyperthyroidism?Hyperthyroidism is a condition that can make your heart beat fast, or make you feel shaky or anxious. It involves a gland in the neck called the thyroid (figure 1). This gland makes thyroid hormone, which controls how the body uses and stores energy. Hyperthyroidism is the term doctors use when the thyroid gland makes too much thyroid hormone. What if I have hyperthyroidism and want to get ?If you have hyperthyroidism and want to get , talk with your doctor or nurse before you start trying. Your doctor will treat your hyperthyroidism before you start trying to get . In general, hyperthyroidism in a person who is not can be treated with: Medicines Radioactive iodine This comes in a pill or liquid you swallow. It contains a small amount of radiation. Surgery to remove part or all of the thyroid gland You and your doctor will figure out which treatment is best for you. The decision depends on many factors. It's best to treat your hyperthyroidism before you try to get . If your hyperthyroidism is treated, you won't have to take medicines for it during . Women who are treated with radioactive iodine or surgery need to wait at least 6 months before trying to get . That way, their doctor will have enough time to check whether they are making enough thyroid hormone. Many people treated with radioactive iodine or surgery end up making too little thyroid hormone after treatment. This is a problem because women with too little thyroid hormone can have trouble getting . Also, if a woman has too little thyroid hormone, it can affect her baby's development early in . Women who don't make enough thyroid hormone will need treatment. What if I develop hyperthyroidism during ?If you develop hyperthyroidism during , your doctor will want to know what's causing it. The 2 most common causes are: A condition called Graves' disease (figure 2) A condition called hCG-mediated hyperthyroidism This is caused by a hormone called hCG (human chorionic gonadotropin). To figure out the cause, your doctor will do different blood tests. How might hyperthyroidism affect a ?Mild hyperthyroidism does not usually cause any problems for a woman or her baby. But severe hyperthyroidism can lead to problems if it isn't treated. These can include: Problems in the mother, such as heart problems or a condition called preeclampsia Problems with the , such as labor (when labor starts too early) or miscarriage(when a ends on its own before the baby can live outside the womb) How is hyperthyroidism that develops during treated? Treatment depends on what's causing the hyperthyroidism and how serious it is. hCG-mediated hyperthyroidism does not usually need treatment. This condition usually goes away on its own later on during . Mild hyperthyroidism from Graves' disease also does not usually need treatment. But your doctorwill monitor your thyroid hormone levels by doing blood tests on a regular basis. Severe hyperthyroidism from Graves' disease does need treatment. This usually involves medicines called thionamides. Your doctor will prescribe different ones at different times during your . That's because some are more likely to cause defects at certain times during . Will I need tests?Yes. During , you will have blood tests to check your thyroid hormone levels on a regular basis. Women with Graves' disease will also have tests to check whether their unborn baby has hyperthyroidism. Even though it is rare, unborn babies sometimes get hyperthyroidism. These tests usually include blood tests and an ultrasound. An ultrasound uses sound waves to create pictures of your baby. If your unborn baby has hyperthyroidism, the doctor can treat it by giving you medicine. After , women with Graves' disease will have blood tests to check their thyroid hormone levels every so often. Thats because the condition can come back later on. Can I have a normal vaginal delivery?Yes. Most women can have a normal vaginal delivery. Can I breastfeed my baby?Yes. Most women are able to breastfeed. But be sure to talk with your doctor so he or she can make sure your medicines are safe to take when . Will my baby be healthy?Chances are good that your baby will be healthy. In rare cases, though, babies born to women with Graves' disease can also have hyperthyroidism. To check for this condition, babies have blood tests done after . All topics are updated as new evidence becomes available and our peer review process is complete. This topic retrieved from [employer] on: Jun 30, 2019. Topic 38359 Version 5.0 Release: 27.4.3 - C27.271 2019[employer]. and/or its affiliates.All rights reserved. figure 1: Thyroid and parathyroid glands The thyroid is a butterfly-shaped gland in the middle of the neck. It sits just below the larynx (voice box). The thyroid makes two hormones, called T3 and T4, which control how the body uses and stores energy. The parathyroid glands are four small glands behind the thyroid. They make a hormone calledparathyroid hormone, which helps control the amount of calcium in the blood. Graphic 62941 Version 9.0 figure 2: Hyperthyroidism Hyperthyroidism is when the thyroid gland in the neck is "overactive" and makes too much thyroid hormone. This can cause a swelling in the neck, called a "goiter." If hyperthyroidism is caused by a medical condition called Graves disease, it can also make the eyes bulge out. Graphic 15109 Version 8.0 Consumer Information Use and Disclaimer This information is not specific medical advice and does not replace information you receive from your health care provider. This is only a brief summary of general information. It does NOT include allinformation about conditions, illnesses, injuries, tests, procedures, treatments, therapies, discharge instructions or life-style choices that may apply to you. You must talk with your health care provider for complete information about your health and treatment options. This information should not beused to decide whether or not to accept your health care provider's advice, instructions or recommendations. Only your health care provider has the knowledge and training to provide advice that is right for you.The use of [employer] content is governed by the [employer] Terms of Use. 2019 [employer]. All rights reserved. Copyright 2019[employer]. and/or its affiliates.All rights reserved. Weight loss is in the calories Most important technique - WRITE IT DOWN/ Make it conscious E[employer] - Free websites loseit [employer] fooducate Multiple effective diets- I favor the low carb diet- Cut out bread/ rice/ potatoes -etc. Eat meals with lean protein (meat/ fish/ chicken/ low fat cheese) and salad- Fruit is good but in moderation No fruit juice or sweetened sodas/ drinks- AUTHOR: Sharla Goyal MD 12:18 08/14/2019 documented in this encounter Plan of Treatment Date Type Specialty Care Team Description 01/04/2020 Appointment Radiology 01/04/2020 Office Visit General Surgery Allie Blackburn, [address] [place] [address] [phone] Name Type Priority Associated Diagnoses Order Schedule FREE T4 Lab Routine Abnormal TSH Expected: 08/14/2019 (Approximate), Expires: 08/14/2020 Name Type Priority Associated Diagnoses Order Schedule REFER TO PHYSICAL Referral Routine Arthralgia of both 99 Occurrences starting THERAPY / REHAB lower legs 08/14/2019 until 08/14/2020 Health Maintenance Due Date Last Done Comments MAMMOGRAM (SCREENING) 12/31/2019 12/30/2018, 12/24/2017, 12/24/2017, Additional history exists DEPRESSION SCREENING 01/30/2020 01/29/2019 DIABETES SCREENING 08/13/2020 08/13/2019, 01/20/2019, 01/20/2019, Additional history exists LIPID DISORDER SCREENING 08/13/2020 08/13/2019, 01/20/2019, 03/14/2018 PAP SMEAR 02/25/2021 02/25/2018, 12/28/2002, 04/28/2001 COLONOSCOPY SCREENING 08/09/2021 08/09/2016 INFLUENZA VACCINE Completed 06/23/2019, 11/14/2018 HPV IMMUNIZATION SERIES Aged Out No longer eligible based on patient's age to complete this topic MENINGOCOCCAL VACCINE IMM Aged Out No longer eligible based on patient's age to complete this topic PNEUMOCOCCAL 0-64 YRS Aged Out No longer eligible based on patient's age to complete this topic documented as of this encounter Goals Goal Patient Goal Associated Recent Patient-Stated? Author Type Problems Progress Blood Pressure Blood Pressure 138/72 No Jelani, < 140/90 (08/14/2019 Mary Grace, 11:35 AM EST) Note: This is an individualized treatment (blood pressure) goal for Mariluz Uribe: Displayed above (on the left) is your goal for blood pressure control. Your most recent blood pressure is also shown above, on the right. You should try to achieve blood pressures that are lower than your goal listed above (on the left). Weight loss vs. 18 mo Lifestyle 11 (08/14/2019 11:35 AM No Mary Grace Palomares MD max (lbs) >= 10 EST) Note: This is an individualized lifestyle goal for Mariluz Uribe: Your body mass index (BMI) is more than 30. You should lose weight. A reasonable starting goal is to lose 10 pounds. Displayed above is how many pounds you have lost thus far towards your 10 pound weight loss goal. Take all prescribed medications as Self-management No Mary Grace Palomares MD directed Note: This is an individualized self-management goal for Mariluz Uribe: Please take all prescribed medications as directed. 1. Do not skip doses. If you cannot afford your medications, talk with your doctor. 2. Use a pill reminder system such as a pill box if needed. Your pharmacist can help you with this. 3. Contact your Pharmacy 5 days before your medication runs out. If you cannot take your medications for any reasons, talk with your doctor. 4. Please bring all of your medication bottles and inhalers (or a list of all your medications/inhalers) with you to every visit. Potential barriers to meeting all of your care plan goals will continue to be addressed on an ongoing basis. documented as of this encounter Results Not on filedocumented in this encounter Visit Diagnoses Diagnosis Arthralgia of both lower legs - Primary Abnormal TSH Other abnormal clinical finding documented in this encounter Insurance Payer Benefit Plan / Subscriber ID Effective Dates Phone Address Type Group [facility] xxxxxxxxxxx 2018-2089 Jesus Guarantor Name Account Type Relation to Date of Phone Billing Patient Address Mariluz Uribe Personal/Family 1970 [phone] [phone] [place], [place] ([place]) [id number] documented as of this encounter
[2019-08-29] MEDS ORDERED: Clindamycin CAP* 150 MG PO ONE (01:16)
--- NOTE | 2019-08-29 01:20 | ED ---
Throat Pain/Nasal Congestion - HPI Summary HPI Summary: Patient presents for left side lower jaw pain and swelling status post wisdom tooth removal 08/25 in [place]. Denies purulent drainage from mouth, trauma, fever, cough, sore throat, CP, SOB, N/V/D, abdominal pain, change in urine, change in BM - History of Current Complaint Chief Complaint: EDDentalPain Time Seen by Provider: 08/29/19 01:05 Hx Obtained From: Patient Onset/Duration: Gradual Onset, Lasting Days Severity: Severe Cough: None - Allergies/Home Medications Allergies/Adverse Reactions: Allergies Allergy/AdvReac Type Severity Reaction Status Date / Time No Known Allergies Allergy Verified 08/28/19 23:22 PMH/Surg Hx/FS Hx/Imm Hx Endocrine/Hematology History: Reports: Hx Diabetes - "pre-diabetes", Hx Thyroid Disease - issues years ago - has not needed meds in years Denies: Hx Anemia Cardiovascular History: Reports: Hx Hypertension - metoprolol and losartan Denies: Hx Congestive Heart Failure, Hx Pacemaker/ICD Respiratory History: Reports: Hx Asthma - ON O2 AT HOME, Hx Chronic Obstructive Pulmonary Disease (COPD), Other Respiratory Problems/Disorders - HX. OF PNEUMONIA, COPD GI History: Denies: Hx Jaundice, Hx Ulcer History: Denies: Hx Renal Disease Sensory History: Denies: Hx Legally Blind, Hx Deafness, Hx Hearing Aid Opthamlomology History: Denies: Hx Legally Blind Neurological History: Denies: Hx Dementia Psychiatric History: Denies: Hx Anxiety - pt denies, Hx Panic Disorder - Surgical History Surgery Procedure, Year, and Place: L BREAST LUMPECTOMY 2008 [facility]. TUBAL LIGATION. C SECTION X 3. THYROID FNA [facility]IGN - Immunization History Date of Tetanus Vaccine: Unknown Date of Influenza Vaccine: None Infectious Disease History: No Infectious Disease History: Denies: Hx Hepatitis, Hx Human Immunodeficiency Virus (HIV), History Other Infectious Disease, Traveled Outside the [place] in Last 30 Days - Family History Known Family History: Positive: Other - lung cancer mother Family History: mom w/ lung ca - Social History Alcohol Use: Occasionally Hx Substance Use: No Substance Use Type: Reports: None Hx Tobacco Use: Yes Smoking Status (MU): Former Smoker Have You Smoked in the Last Year: No Review of Systems Constitutional: Negative Eyes: Negative Positive: Dental Pain Cardiovascular: Negative Respiratory: Negative Gastrointestinal: Negative Genitourinary: Negative Musculoskeletal: Negative Skin: Negative Neurological: Negative Psychological: Normal All Other Systems Reviewed And Are Negative: Yes Physical Exam - Summary Physical Exam Summary: No evidence of oral lesions, abscess or cellulitis noted. Evidence of surgery left lower posterior jaw. Mild swelling to posterior surface of left jaw without erythema or abscess noted. Full range of motion of jaw. ENT exam unremarkable. Triage Information Reviewed: Yes Vital Signs On Initial Exam: Initial Vitals Temp Pulse Resp BP Pulse Ox 97.9 F 88 16 155/98 98 08/28/19 23:15 08/28/19 23:15 08/28/19 23:15 08/28/19 23:15 08/28/19 23:15 Vital Signs Reviewed: Yes Appearance: Positive: Well-Appearing Skin: Positive: Warm Head/Face: Positive: Normal Head/Face Inspection Eyes: Positive: Normal ENT: Positive: Normal ENT inspection Dental: Positive: Gross Decay/Caries @. Negative: Abscess @, Cellulitis @, Bleeding Neck: Positive: Supple Respiratory/Lung Sounds: Positive: Clear to Auscultation Cardiovascular: Positive: Normal Abdomen Description: Positive: Nontender Musculoskeletal: Positive: Normal Neurological: Positive: Normal Psychiatric: Positive: Normal AVPU Assessment: Alert - [place] Coma Scale Best Eye Response: 4 - Spontaneous Best Motor Response: 6 - Obeys Commands Best Verbal Response: 5 - Oriented Coma Scale Total: 15 Procedures - Sedation Patient Received Moderate/Deep Sedation with Procedure: No Diagnostics - Vital Signs Vital Signs Temp Pulse Resp BP Pulse Ox 08/28/19 23:15 97.9 F 88 16 155/98 98 - Laboratory Lab Statement: Any lab studies that have been ordered have been reviewed, and results considered in the medical decision making process. EENT Course/Dx - Course Course Of Treatment: Patient presents for left side lower jaw pain and swelling status post wisdom tooth removal 08/25 in [place]. Denies purulent drainage from mouth, trauma, fever, cough, sore throat, CP, SOB, N/V/D, abdominal pain, change in urine, change in BM. Vital signs within normal limits. Patient was evaluated by myself and attending Dr. Brown. Patient started on clindamycin, advised to follow-up with dentist JERRY. - Diagnoses Provider Diagnoses: Pain, dental Discharge ED - Sign-Out/Discharge Documenting (check all that apply): Patient Departure - Discharge Plan Condition: Stable Disposition: HOME Prescriptions: Clindamycin HCl 450 mg PO TID 7 Days #63 capsule Patient Education Materials: Toothache (ED) Referrals: Sharla Goyal MD [Primary Care Provider] - Additional Instructions: Take antibiotic as directed. Follow up with your dentist as soon as possible for further evaluation. - Billing Disposition and Condition Condition: STABLE Disposition: Home
[2019-08-29] MEDS ORDERED: Ketorolac TAB * 10 MG TAB PO ONE (01:23)
[2019-08-29 01:55] VITALS: BP 144/90
== END 2019-08-29 01:54 | disposition home or self-care (01) ==
LOC: ED 22:54
DX: K08.89 Other specified disorders of teeth and supporting structures (principal); I10 Essential (primary) hypertension; J44.9 Chronic obstructive pulmonary disease, unspecified; Z99.81 Dependence on supplemental oxygen; Z87.891 Personal history of nicotine dependence; Z98.51 Tubal ligation status; Z79.899 Other long term (current) drug therapy
CPT/HCPCS: 99282; A9270-GY

== ENCOUNTER 2019-09-25 13:39 | Emergency (ER) | payer OTHER ==
[2019-09-25 13:54] VITALS: BP 127/84
== END 2019-09-25 14:45 | disposition left against medical advice (07) ==
LOC: ED 13:39
DX: R51 Headache (principal); R05 Cough; Z53.21 Procedure and treatment not carried out due to patient leaving prior to being seen by health care provider
CPT/HCPCS: 99281

== ENCOUNTER 2019-09-25 15:42 | Emergency (ER) | payer OTHER ==
[2019-09-25 16:02] VITALS: BP 134/89
[2019-09-25] MEDS ORDERED: Ipratropium 0.5MG/2.5ML NEB* 0.5 MG/2.5 ML NEB.SOLN INH ONE (16:24)
[2019-09-25] MEDS ORDERED: Albuterol 2.5 MG/3 ML NEB.SOL* (0.083%) INH ONE (16:24)
--- NOTE | 2019-09-25 16:52 | UC ---
Respiratory Complaint HPI - HPI Summary HPI Summary: The patient is a 49-year-old female with a history of COPD that presents here with a less than 48 hour history of cough wheezing and nasal congestion sinus pressure and pain and severe headache. She has felt feverish and has had chills. She has some muscle aches. She denies any chest pain or shortness of breath. - History of Current Complaint Chief Complaint: UCRespiratory Stated Complaint: sinuS CONGESTION Time Seen by Provider: 09/25/19 16:14 Hx Obtained From: Patient Hx Last Menstrual Period: 08/21/19 Onset/Duration: Gradual Onset, Lasting Days Timing: Constant Severity Initially: Mild Severity Currently: Moderate Pain Intensity: 7 Pain Scale Used: 0-10 Numeric Character: Cough: Nonproductive Aggravating Factors: Nothing Alleviating Factors: Nothing Associated Signs And Symptoms: Positive: Wheezing, URI, Nasal Congestion, Sinus Discomfort - Allergies/Home Medications Allergies/Adverse Reactions: Allergies Allergy/AdvReac Type Severity Reaction Status Date / Time No Known Allergies Allergy Verified 09/25/19 16:02 PMH/Surg Hx/FS Hx/Imm Hx Previously Healthy: Yes Endocrine History: Diabetes, Thyroid Disease, Dyslipidemia Cardiovascular History: Hypertension Respiratory History: COPD - Surgical History Surgical History: Yes Surgery Procedure, Year, and Place: L BREAST LUMPECTOMY 2008 B[facility]IGN. TUBAL LIGATION. C SECTION X 3. THYROID FNA BENIGN - Family History Known Family History: Positive: Other - lung cancer mother Family History: mom w/ lung ca - Social History Alcohol Use: Occasionally Substance Use Type: None Smoking Status (MU): Former Smoker Have You Smoked in the Last Year: No Household Exposure Type: Cigarettes Review of Systems All Other Systems Reviewed And Are Negative: Yes Constitutional: Positive: Fever, Chills, Fatigue Skin: Positive: Negative Eyes: Positive: Negative ENT: Positive: Ear Ache, Nasal Discharge, Sinus Congestion, Sinus Pain/ Tenderness Respiratory: Positive: Cough Cardiovascular: Positive: Negative Gastrointestinal: Positive: Negative Genitourinary: Positive: Negative Motor: Positive: Negative Neurovascular: Positive: Negative Musculoskeletal: Positive: Myalgia Neurological: Positive: Negative Psychological: Positive: Negative Physical Exam Triage Information Reviewed: Yes Appearance: Well-Appearing, No Pain Distress, Well-Nourished Vital Signs: Initial Vital Signs Temp 99.3 F 09/25/19 15:54 Pulse 94 09/25/19 15:54 Resp 18 09/25/19 15:54 BP 134/89 09/25/19 15:54 Pulse Ox 99 09/25/19 15:54 Vital Signs Reviewed: Yes Eyes: Positive: Conjunctiva Clear ENT: Positive: Hearing grossly normal, Pharynx normal, Nasal congestion, Nasal drainage, Sinus tenderness, Uvula midline. Negative: Tonsillar swelling, Tonsillar exudate, Hoarse voice Neck: Positive: Supple, Nontender, No Lymphadenopathy Respiratory: Positive: No respiratory distress, No accessory muscle use, Wheezing Cardiovascular: Positive: RRR, No Murmur, Pulses Normal Musculoskeletal: Positive: ROM Intact, No Edema Neurological: Positive: Alert Psychological Exam: Normal Skin Exam: Normal Diagnostics - Laboratory Lab Results: influenza (-) Re-Evaluation - Re-Evaluation First Eval Re-Evaluation Time: 01:00 Change: Improved - better air movement Respiratory Course/Dx - Differential Dx/Diagnosis Provider Diagnosis: Upper respiratory infection, Bronchospasm Discharge ED - Sign-Out/Discharge Documenting (check all that apply): Patient Departure All imaging exams completed and their final reports reviewed: No Studies - Discharge Plan Condition: Stable Disposition: HOME Patient Education Materials: Bronchospasm (ED), How to Use a Metered-Dose Inhaler and a Spacer (ED) Referrals: Sharla Goyal MD [Primary Care Provider] - 3 Days - Billing Disposition and Condition Condition: STABLE Disposition: Home
[2019-09-25 16:58] LABS: Influenza A Molecular NEGATIVE (Negative); Influenza B Molecular NEGATIVE (Negative)
[2019-09-25] MEDS ORDERED: Albuterol HFA INHALER* 8 gm MDI INH ONE (17:15)
[2019-09-25] MEDS ORDERED: Ketorolac INJ* 30 MG/ML 1 ML VIAL IM ONE (17:15)
== END 2019-09-25 17:50 | disposition home or self-care (01) ==
LOC: UCEAST 15:42
DX: J06.9 Acute upper respiratory infection, unspecified (principal); J44.9 Chronic obstructive pulmonary disease, unspecified; I10 Essential (primary) hypertension; J98.01 Acute bronchospasm; Z87.891 Personal history of nicotine dependence
CPT/HCPCS: 99213; A9270-GY; G0463; J1885; J7512

== ENCOUNTER 2020-11-17 12:49 | Inpatient (IN) ==
[2020-11-17 16:56] LABS: ABS Basophils 0.1 10^3/ul (0-0.2); ABS Lymphocytes 1.8 10^3/ul (1.0-4.8); ABS Monocytes 1.3 10^3/ul (0-0.8); ABS Neutrophils 11.6 10^3/ul (1.5-7.7); Eosinophil % 0.1 %; Hematocrit 39 % (35-47); Hemoglobin 13.7 g/dL (12.0-16.0); Lymphocyte % 12.2 %; Mean Corpuscular HGB Conc 35 g/dL (31-36); Mean Corpuscular Hemoglobin 29 pg (27-31); Mean Corpuscular Volume 82 fL (80-97); Mean Platelet Volume 8.2 fL (7.4-10.4); Platelet Count 224 10^3/uL (150-450); Red Blood Count 4.79 10^6 /uL (3.70-4.87); Red Cell Distribution Width 16 % (10-15); White Blood Count 14.8 10^3/uL (3.5-10.8)
[2020-11-17 17:27] LABS: Albumin 4.1 g/dL (3.2-5.2); Albumin/Globulin Ratio 1.2 (1-3); BUN/Creatinine Ratio 17.2 (8-20); C Reactive Protein 281.69 mg/L (<8.01); Calcium 9.8 mg/dL (8.6-10.3); EGFR African American 118.9 (>60); EGFR Non-African American 98.2 (>60); Globulin 3.3 g/dL (2-4); Potassium 3.4 mmol/L (3.5-5.0); Total Bilirubin 1.2 mg/dL (0.2-1.0); Total Protein 7.4 g/dL (6.4-8.9)
[2020-11-17 17:33] LABS: HCG Pregnancy 1.6 mIU/mL
[2020-11-17] MEDS ORDERED: cefTRIAXone 1 gm/50 mL NS BAG 1 GM/50 ML BAG IVPB ONE (18:25)
[2020-11-17] MEDS ORDERED: NS 0.9% 1000 ml BAG 1,000 ML IV.FLUID IV ONE (18:25)
[2020-11-17 18:26] LABS: Urine Appearance Cloudy; Urine Bilirubin Negative (Negative); Urine Blood 3+ (Negative); Urine Color Amber; Urine Glucose 3+(>=500 mg/dL) (Negative); Urine Ketones Trace (Negative); Urine Nitrite Negative (Negative); Urine Protein 3+(>=500 mg/dL) (Negative); Urine Specific Gravity 1.017 (1.010-1.030); Urine Urobilinogen Negative (Negative)
[2020-11-17] MEDS ORDERED: Potassium Chlor 10 meq TAB PO ONE (18:33)
[2020-11-17 18:43] LABS: Urine Bacteria Absent (Absent); Urine Red Blood Cell 2+(6-10/hpf) (Absent); Urine Squamous Epithelial Cell Present (Absent); Urine White Blood Cell 3+(>20/hpf) (Absent)
[2020-11-17] MEDS ORDERED: Dextrose 50% Syringe 50 ml 25 GM/50 ML SYRINGE IV PUSH PRN (19:22)
[2020-11-17 19:59] LABS: TSH Ultra Thyroid Stim Horm 0.13 mcIU/mL (0.34-5.60)
[2020-11-17 20:01] LABS: Free T4 0.91 ng/dL (0.61-1.12)
[2020-11-17 20:33] LABS: Magnesium 1.3 mg/dL (1.9-2.7)
[2020-11-17 21:29] LABS: Influenza A Molecular Negative (Negative); Influenza B Molecular Negative (Negative)
[2020-11-17] MEDS: Enoxaparin 40 MG/0.4 ML SYR SUBCUT SCH (23:44)
[2020-11-17] MEDS: Fluticasone NASAL SPRAY 50MCG 16 gm SPRAY BTL INTRANASAL SCH (23:44)
[2020-11-18] MEDS: Fluticasone NASAL SPRAY 50MCG 16 gm SPRAY BTL INTRANASAL SCH ×2 (01:02→07:36)
[2020-11-18 06:19] LABS: ABS Lymphocytes 1.5 10^3/ul (1.0-4.8); ABS Monocytes 1.3 10^3/ul (0-0.8); ABS Neutrophils 7.7 10^3/ul (1.5-7.7); Eosinophil % 0.3 %; Hematocrit 34 % (35-47); Hemoglobin 12.2 g/dL (12.0-16.0); Lymphocyte % 14.2 %; Mean Corpuscular HGB Conc 36 g/dL (31-36); Mean Corpuscular Hemoglobin 29 pg (27-31); Mean Corpuscular Volume 81 fL (80-97); Platelet Count 184 10^3/uL (150-450); Red Blood Count 4.14 10^6 /uL (3.70-4.87); Red Cell Distribution Width 16 % (10-15); White Blood Count 10.5 10^3/uL (3.5-10.8)
[2020-11-18 06:34] LABS: Albumin 3.4 g/dL (3.2-5.2); Albumin/Globulin Ratio 1.1 (1-3); Calcium 8.6 mg/dL (8.6-10.3); EGFR African American 125.6 (>60); EGFR Non-African American 103.8 (>60); Globulin 3.2 g/dL (2-4); Magnesium 1.3 mg/dL (1.9-2.7); Potassium 3.7 mmol/L (3.5-5.0); Total Bilirubin 0.9 mg/dL (0.2-1.0); Total Protein 6.6 g/dL (6.4-8.9)
[2020-11-18] MEDS ORDERED: Magnesium Sulf 4 GM/100 ML IV 4,000 MG/100 ML BAG IVPB ONE (08:00)
[2020-11-18] MEDS: Mometasone/Formoter 100/5 MDI INH SCH ×2 (08:25→19:19)
[2020-11-18] MEDS: Albuterol HFA INHALER 8 gm MDI INH PRN ×2 (08:25→19:19)
[2020-11-18 17:51] LABS: Erythrocyte Sed Rate 25 mm/Hr (0-29)
[2020-11-18] MEDS ORDERED: cefTRIAXone 2 GM ADDV.VIAL 2 GM in NS 0.9% 100 ml BAG 100 ML IV SCH (21:00)
[2020-11-18] MEDS: Enoxaparin 40 MG/0.4 ML SYR SUBCUT SCH (21:02)
[2020-11-18] MEDS ORDERED: Saline NASAL SPRAY 0.65% BTL BOTH NARES PRN (21:23)
[2020-11-19 06:34] LABS: ABS Basophils 0.1 10^3/ul (0-0.2); ABS Eosinophils 0.2 10^3/ul (0-0.6); ABS Lymphocytes 2.1 10^3/ul (1.0-4.8); ABS Neutrophils 4.5 10^3/ul (1.5-7.7); Hematocrit 32 % (35-47); Hemoglobin 11.7 g/dL (12.0-16.0); Lymphocyte % 26.1 %; Mean Corpuscular HGB Conc 36 g/dL (31-36); Mean Corpuscular Hemoglobin 29 pg (27-31); Mean Corpuscular Volume 81 fL (80-97); Mean Platelet Volume 7.6 fL (7.4-10.4); Platelet Count 205 10^3/uL (150-450); Red Blood Count 3.99 10^6 /uL (3.70-4.87); Red Cell Distribution Width 15 % (10-15); White Blood Count 7.9 10^3/uL (3.5-10.8)
[2020-11-19 06:54] LABS: BUN/Creatinine Ratio 25.5 (8-20); Calcium 8.5 mg/dL (8.6-10.3); EGFR African American 169.7 (>60); EGFR Non-African American 140.3 (>60); Magnesium 1.8 mg/dL (1.9-2.7); Potassium 3.5 mmol/L (3.5-5.0)
[2020-11-19 07:05] LABS: C Reactive Protein 196.84 mg/L (<8.01)
[2020-11-19] MEDS ORDERED: Magnesium Sulf 4 GM/100 ML IV 4,000 MG/100 ML BAG IVPB ONE (08:00)
[2020-11-19] MEDS: Mometasone/Formoter 100/5 MDI INH SCH (08:06)
[2020-11-19] MEDS: Albuterol HFA INHALER 8 gm MDI INH PRN (08:06)
[2020-11-19] MEDS: Fluticasone NASAL SPRAY 50MCG 16 gm SPRAY BTL INTRANASAL SCH (09:03)
[2020-11-19 11:29] VITALS: BP 99/62
== END 2020-11-19 14:46 | disposition home or self-care (01) | DRG 720 ==
LOC: ED 12:49 → MED 19:15
PROVIDERS: ADMIT Internal Medicine; ATTEND Internal Medicine